=== PATIENT | female | born 1950 | race Two or more races ===

== ENCOUNTER 2020-06-25 10:29 | Outpatient (REF) | payer MEDICARE, OTHER, SELFPAY | END 2020-06-25 10:30 | disposition home or self-care (01) | LOC: HO.HMGCLDS 10:29 | PROVIDERS: Visit Provider Internal Medicine | DX: Z20.828 Contact with and (suspected) exposure to other viral communicable diseases (principal) | CPT/HCPCS: C9803; U0003 ==

== ENCOUNTER → 2020-07-08 11:05 | Outpatient (BNVA) | payer MEDICARE, SELFPAY | PROVIDERS: PCP Internal Medicine; Referring Provider Internal Medicine; Visit Provider Nurse Practitioner | DX: K21.9 Gastro-esophageal reflux disease without esophagitis (principal); K59.00 Constipation, unspecified; Z79.899 Other long term (current) drug therapy | CPT/HCPCS: Q3014 ==

== ENCOUNTER → 2020-07-23 13:17 | Outpatient (BNV) | payer MEDICARE, OTHER, SELFPAY, MEDICAID | PROVIDERS: Visit Provider Internal Medicine | DX: M81.0 Age-related osteoporosis without current pathological fracture (principal); Z85.3 Personal history of malignant neoplasm of breast; Z79.811 Long term (current) use of aromatase inhibitors; Z17.0 Estrogen receptor positive status [ER+] | CPT/HCPCS: 99213; 99214; G2211 ==

== ENCOUNTER 2020-07-25 07:39 | Outpatient (REF) | payer MEDICARE, OTHER, SELFPAY ==
--- NOTE | 2020-07-25 07:45 | MM_ITS ---
EXAMINATION: MM SCREENING DIGITAL BREAST TOMOSYNTHESIS, BILATERAL CLINICAL INFORMATION: Screening. Asymptomatic. COMPARISON: Mammography: July 06, 2019 and studies dating back to May 21, 2014 TECHNIQUE: Digital breast tomosynthesis is performed in both the craniocaudal and mediolateral oblique views along with computer-aided detection (CAD). Synthesized 2D images are generated from the tomosynthesis. Left exaggerated craniocaudal view also performed. FINDINGS: There are scattered areas of fibroglandular density (ACR BI-RADS breast composition Category b). There is architectural distortion from previous lumpectomy in the left breast superiorly. No new abnormal dominant mass or suspicious grouping of microcalcifications. MM/MM tomosynthesis screening BI IMPRESSION: There are no significant changes from prior study. ASSESSMENT: BI-RADS 2: Benign RECOMMENDATION: Routine annual mammography screening. This patient's information was entered into a reminder system with a target due date for their next mammogram.
== END 2020-07-25 07:40 | disposition home or self-care (01) ==
LOC: HO.MAMMO 07:39
PROVIDERS: PCP Internal Medicine; Visit Provider Surgery
DX: Z12.31 Encounter for screening mammogram for malignant neoplasm of breast (principal)
CPT/HCPCS: 77063; 77067

== ENCOUNTER → 2020-09-17 13:15 | Outpatient (BNVA) | payer MEDICARE, SELFPAY | PROVIDERS: PCP Internal Medicine; Visit Provider Nurse Practitioner | DX: Z76.89 Persons encountering health services in other specified circumstances (principal) | CPT/HCPCS: Q3014 ==

== ENCOUNTER → 2020-10-03 08:28 | Outpatient (BNVA) | payer MEDICARE, SELFPAY | PROVIDERS: PCP Internal Medicine; Visit Provider Nurse Practitioner | DX: K59.04 Chronic idiopathic constipation (principal) | CPT/HCPCS: Q3014 ==

== ENCOUNTER → 2020-10-22 11:36 | Outpatient (BNVA) | payer MEDICARE, SELFPAY | PROVIDERS: PCP Internal Medicine; Visit Provider Nurse Practitioner | DX: Z13.89 Encounter for screening for other disorder (principal) | CPT/HCPCS: Q3014 ==

== ENCOUNTER → 2020-11-07 14:42 | Outpatient (BNVA) | payer MEDICARE, MEDICAID, SELFPAY | PROVIDERS: PCP Internal Medicine; Visit Provider Surgery | DX: C50.912 Malignant neoplasm of unspecified site of left female breast (principal) | CPT/HCPCS: 99212 ==

== ENCOUNTER → 2021-01-06 10:57 | Outpatient (BNVA) | payer MEDICARE, SELFPAY | PROVIDERS: Visit Provider Nurse Practitioner | DX: Z13.89 Encounter for screening for other disorder (principal) | CPT/HCPCS: Q3014 ==

== ENCOUNTER 2021-02-13 08:03 | Outpatient (REF) | payer MEDICARE, MEDICAID, SELFPAY ==
--- NOTE | ~2021-02-13 | MM_ITS ---
EXAMINATION: BONE DENSITOMETRY CLINICAL INDICATION: Osteopenia. On letrozole. COMPARISON: Previous BD dated 05/06/2017 and baseline BD dated 03/10/2011. TECHNIQUE: Using a [employer] DXA System (software version: 13.1) manufactured by [employer], dual-energy x-ray absorptiometry was performed of the lumbar spine and left hip. The images are of good technical quality. Summary results are attached. FINDINGS: AP SPINE L1-L4: Current: BMD 1.081 g/cm2, Z-score 0.8, T-score -0.8, normal, 15.4% increase from previous, 13.8% increase from baseline (<5% change is not significant). Prior: BMD 0.937 g/cm2. Baseline: BMD 0.950 g/cm2. LEFT FEMUR, NECK: Current: BMD 0.639 g/cm2, Z-score -1.2, T-score -2.9, osteoporosis. Prior: BMD 0.729 g/cm2. Baseline: BMD 0.835 g/cm2. LEFT FEMUR, TOTAL: Current: BMD 0.721 g/cm2, Z-score -0.9, T-score -2.3, osteopenia, 10.2% decrease from previous, 17.6% decrease from baseline (<5% change is not significant). Prior: BMD 0.803 g/cm2. Baseline: BMD 0.875 g/cm2. IDENTIFIED RISK FACTORS: Early menopause, hysterectomy, low calcium intake, secondary osteoporosis, Thiazide. HISTORY OF FRACTURE: None listed. MEDICATIONS: Calcium, vitamin D. MM/XR DEXA axial skeleton IMPRESSION: 1. DIAGNOSIS: Osteoporosis based on the lowest T-score value of -2.9 in the femoral neck applying World Health Organization criteria. 2. 10-YEAR FRACTURE RISK PREDICTION, FRAX: According to the guidelines, FRAX calculation should only be performed on patients in the osteopenia bone density category. Therefore, FRAX was not performed on this patient. 3. Treatment Recommendations: NOF guidelines recommend consideration for treatment in postmenopausal women and men age 50 and older presenting with the following: -A hip or vertebral (clinical or morphometric) fracture. -T-score less than or equal to -2.5 at the femoral neck or spine after appropriate evaluation to exclude secondary causes. -Low bone mass at the hip or spine and a 10-year fracture probability by FRAX of greater than or equal to 3% for hip fracture or greater than or equal to 20% for major osteoporotic fracture based on the [place] adapted WHO algorithm. 4. Other Recommendations: All treatment decisions require clinical judgment and consideration of individual patient factors, including patient preferences, comorbidities, previous drug use, risk factors not captured in the FRAX model (e.g. frailty, falls, vitamin D deficiency, increased bone turnover, interval significant decline in bone density) and possible under or overestimation of fracture risk by FRAX. Additional medical evaluation for secondary cause of low bone mineral density may be appropriate. FUTURE SCAN RECOMMENDATION: People with diagnosed cases of osteoporosis or at high risk for fracture should have regular bone mineral density tests. For patients eligible for Medicare, routine testing is allowed once every 2 years. The testing frequency can be increased to one year for patients who have rapidly progressing disease, those who are receiving or discontinuing medical therapy to restore bone mass, or have additional risk factors.
== END 2021-02-13 08:04 | disposition home or self-care (01) ==
LOC: HO.MAMMO 08:03
PROVIDERS: Visit Provider Internal Medicine
DX: Z13.820 Encounter for screening for osteoporosis (principal); M81.0 Age-related osteoporosis without current pathological fracture; M85.89 Other specified disorders of bone density and structure, multiple sites; Z78.0 Asymptomatic menopausal state; Z79.899 Other long term (current) drug therapy
CPT/HCPCS: 77080

== ENCOUNTER → 2021-04-24 11:26 | Outpatient (BNVA) | payer MEDICARE, MEDICAID, SELFPAY | PROVIDERS: Referring Provider Nurse Practitioner; Visit Provider Nurse Practitioner | DX: K59.04 Chronic idiopathic constipation (principal); K21.9 Gastro-esophageal reflux disease without esophagitis; R14.0 Abdominal distension (gaseous); Z80.0 Family history of malignant neoplasm of digestive organs | CPT/HCPCS: 99212 ==

== ENCOUNTER → 2021-07-14 14:12 | Outpatient (BNVA) | payer MEDICARE, OTHER, SELFPAY | PROVIDERS: Visit Provider Nurse Practitioner | DX: K59.04 Chronic idiopathic constipation (principal); K21.9 Gastro-esophageal reflux disease without esophagitis; R14.0 Abdominal distension (gaseous) | CPT/HCPCS: 99212 ==

== ENCOUNTER 2021-09-01 18:14 | Emergency (ER) | payer MEDICARE, OTHER, SELFPAY ==
--- NOTE | ~2021-09-01 | CT_ITS ---
EXAMINATION: CT HEAD WITHOUT CONTRAST CLINICAL INFORMATION: Fall, hit head. COMPARISON: None TECHNIQUE: Contiguous axial imaging was performed from the skull base to vertex without intravenous administration of contrast. This CT examination was performed using dose optimization techniques as appropriate, variously including the following: *Automated exposure control *Adjustment of mA and/or kV according to patient size (this includes techniques or standardized protocols for targeted exams where dose is matched to indication/reason for exam; i.e. extremities or head) *Use of iterative reconstruction technique DLP: 685 mGy-cm FINDINGS: There is no evidence of acute intracranial hemorrhage or territorial infarction. No abnormal mass effect or midline shift is seen. Kohler to white matter differentiation is well preserved. No extra-axial fluid collections are identified. The ventricles are normal in size. There is no abnormal attenuation within the brain parenchyma. The osseous structures and soft tissues are normal. The mastoid air cells and visualized portions of the paranasal sinuses are well aerated. CT/CT head/brain wo con IMPRESSION: No acute intracranial process seen.
[2021-09-01 18:24] VITALS: BP 176/83; PULSE 75; RESP 18; TEMP 36.9; O2SAT 96; BMI 27.9
--- NOTE | 2021-09-01 20:18 | ED_ITS ---
HPI - Fall General Chief Complaint: Fall Stated Complaint: fell bump on the back of head Time Seen by Provider: 09/01/21 19:55 Source: patient Mode of arrival: ambulatory Limitations: no limitations History of Present Illness HPI Narrative: 71-year-old female here with reports of headache after a trip and fall. Patient tells me that she was sitting in the chair talking on the phone and when she stood up she tripped causing her to hit the right side of her head on the wall. There was no loss of consciousness. She reports a mild headache since the fall which occurred at 16:00. No vision changes, nausea or vomiting. She is not on any anticoagulation. She is ambulatory with no difficulty Related Data Home Medications Medication Instructions Recorded Confirmed atenolol 25 mg tablet 1 tab PO DAILY 07/23/20 08/12/21 hydrochlorothiazide 12.5 mg tablet 1 tab PO DAILY 07/23/20 08/12/21 cyanocobalamin (vitamin B-12) 250 250 mcg PO DAILY 10/03/20 08/12/21 mcg tablet Previous Rx's Medication Instructions Recorded docusate sodium 100 mg capsule 100 mg PO BID #60 cap 08/22/20 pantoprazole 40 mg tablet,delayed 40 mg PO DAILY 90 Days #90 tab 07/14/21 release Allergies Allergy/AdvReac Type Severity Reaction Status Date / Time iopamidol [From Isovue-M] Allergy Mild DEVELOPED Verified 08/12/21 16:11 THIGHTNESS IN THROAT Iodinated Contrast Media AdvReac Intermediate VOMITING Verified 08/12/21 16:11 [CONTRAST, IV] Review of Systems Review of Systems: Yes all other systems are reviewed and are negative Constitutional: Constitutional: Reports no additional constitutional complaints, Denies body ache(s), Denies chills, Denies fever(s), Reports headache(s) and Denies weakness Eyes: Eyes: Reports no additional eye complaints and Denies change in vision ENT: Reports system reviewed and no additional complaints, except as do cumented, Denies dizziness, Reports headache(s), Denies nasal congestion, Denies nasal discharge and Denies neck pain Cardiovascular: Cardiovascular: Reports no additional cardiovascular complaints, Denies chest pain, Denies leg edema and Denies dyspnea Respiratory: Respiratory: Reports no additional respiratory complaints, Denies cough and Denies dyspnea Gastrointestinal: Gastrointestinal: Reports no additional gastrointestinal complaints, Denies abdominal pain, Denies diarrhea, Denies nausea and Denies vomiting Genitourinary: Genitourinary: Reports no additional female genitourinary complaints and Denies urinary incontinence Musculoskeletal: Musculoskeletal: Reports no additional musculoskeletal complaints, Denies back pain, Denies arthralgias, Denies joint swelling, Denies neck pain, Denies numbness and Denies tingling Integumentary/Breasts: Skin/Breast: Reports system reviewed and no additional complaints, except as docu and Denies rash Neurologic: Reports system reviewed and no additional complaints, except as documented, Denies Abnormal speech present, Denies dizziness, Reports headache(s), Denies numbness, Denies tingling and Denies weakness PMFSH Past Medical History Attestation statement: The following information was validated with the patient. 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 Sister No problems noted. Social History Social History Household Members: Children Alcohol intake: former Patient Tobacco Use Status: Never used Tobacco Advance Directives: No Current occupational status: retired and disabled Physical Exam Vital Signs: Vital Signs: Last Vital Signs Temp 98.4 F 09/01/21 18:24 Pulse 75 09/01/21 20:40 Resp 16 09/01/21 20:40 BP 127/82 09/01/21 20:40 Pulse Ox 96 09/01/21 20:40 BMI result Body Mass Index 27.9 Const: General: cooperative, healthy appearing, comfortable and no acute distress Orientation/consciousness: patient oriented x3 Limitations: no limitations HENMT: Head: Yes normal to inspection Ears: hearing grossly normal bilaterally and TM's normal bilaterally General nose exam: Normal external nose present Face and sinus: Yes normal facial exam Mouth: Normal oral and palatal mucosa present Throat: Yes posterior oropharynx normal, Yes tonsils normal and Yes uvula midline Eyes: General: appearance normal, both eyes and all related structures Pupils: Equal, round and reactive pupils present Neck: Neck: Yes normal visual inspection, Yes full ROM, Yes no lymphadenopathy and Yes no meningeal signs Chest: Chest palpation & inspection: normal inspection of the chest Resp: Effort & Inspection: normal respiratory effort Auscultation: clear to auscultation bilaterally Cardio: Rate: regular rate Rhythm: regular rhythm Peripheral pulses: Peripheral pulses 2+ throughout GI: Inspection: Yes normal to inspection Palpation (GI): Soft to palpation and nontender Auscultation: normal bowel sounds Back/Spine/Pelvis: Thoracic/Lumbar Spine: thoracic and lumbar spine normal to inspection Skin: General skin exam: no rashes or lesions noted Neuro: General: patient oriented x3, no meningeal signs, no focal motor deficits and normal sensation to monofilament Cranial nerves: Yes CN's II-XII intact bilaterally, Yes Equal, round and reactive pupils present, Yes Bilaterally intact EOM present, Yes Nystagmus not present, Yes Normal facial strength present and Yes Midline tongue present Cognition (Neuro): normal cognition Speech: No Abnormal speech present Gait exam (Neuro): Normal gait present Motor exam (neuro): 5/5 motor strength present throughout Sensory Exam: Normal double simultaneous stimulation for sensation Extrem: General: Yes normal to inspection Course Course Course Narrative: 71-year-old female here with headache after a trip and fall with head strike. Normal neurological exam. Will check CT head 2200-Ct head shows no intracranial process. Normal neuro exam. Patient is ambulatory with no difficulty. Discussed findings with her. Reviewed worrisome signs and symptoms when to return to the emergency. Comfortable discharge home. MDM - Fall Medical Records Attestation: I reviewed the patient's medical records. Lab Data Attestation: I reviewed the patient's lab results. Imaging Data CT scan - head: Attestation: I personally reviewed and interpreted this imaging study as follows: Radiologist's impression: FINDINGS: There is no evidence of acute intracranial hemorrhage or territorial infarction. No abnormal mass effect or midline shift is seen. Kohler to white matter differentiation is well preserved. No extra-axial fluid collections are identified. The ventricles are normal in size. There is no abnormal attenuation within the brain parenchyma. The osseous structures and soft tissues are normal. The mastoid air cells and visualized portions of the paranasal sinuses are well aerated. ? CT/CT head/brain wo con IMPRESSION: No acute intracranial process seen. Discharge Plan Discharge Clinical Impression: Contusion of head Patient Disposition: Home, Self-Care Instructions: Contusion in Adults (ED) Additional Instructions: CT scan was normal Ice to the area Tylenol for pain as needed Return for severe headache, vomiting or vision changes Prescriptions: No Action docusate sodium 100 mg capsule 100 mg PO BID Qty: 60 RF: 6 atenolol 25 mg tablet 1 tab PO DAILY RF: 0 hydrochlorothiazide 12.5 mg tablet 1 tab PO DAILY RF: 0 pantoprazole 40 mg tablet,delayed release (DR/EC) 40 mg PO DAILY 90 Days Qty: 90 RF: 1 cyanocobalamin (vitamin B-12) 250 mcg tablet 250 mcg PO DAILY RF: 0 Referrals: Lovely Jimenez [Primary Care Provider] - 2 days
[2021-09-01 20:40] VITALS: BP 127/82; PULSE 75; RESP 16; O2SAT 96
== END 2021-09-01 22:29 | disposition home or self-care (01) ==
PROVIDERS: Emergency Provider Emergency Medicine; PCP Nurse Practitioner
DX: S00.93XA Contusion of unspecified part of head, initial encounter (principal); W01.198A Fall on same level from slipping, tripping and stumbling with subsequent striking against other object, initial encounter; Y93.89 Activity, other specified; Y92.039 Unspecified place in apartment as the place of occurrence of the external cause; Y99.9 Unspecified external cause status
CPT/HCPCS: 70450; 99283; 99284

== ENCOUNTER 2021-10-23 10:56 | Outpatient (REF) | payer MEDICARE, MEDICAID, SELFPAY ==
--- NOTE | ~2021-10-23 | MM_ITS ---
EXAMINATION: MM SCREENING DIGITAL BREAST TOMOSYNTHESIS, BILATERAL CLINICAL INFORMATION: Screening. Asymptomatic. Lumpectomy for left breast cancer, 2015. COMPARISON: Mammography: 07/25/2020, 07/06/2019, 07/04/2018 TECHNIQUE: Digital breast tomosynthesis is performed in both the craniocaudal and mediolateral oblique views along with computer-aided detection (CAD). Synthesized 2D images are generated from the tomosynthesis. Additional right MLO view is provided. FINDINGS: There are scattered areas of fibroglandular density (ACR BI-RADS breast composition Category b). There are post therapy changes again noted left breast similar to prior studies with mild reduced breast size table scarring central mid 12:00 position. Biopsy clip marker present left axilla. Neither breast shows interval mass or architectural abnormality or abnormal calcifications. No significant changes. MM/MM tomosynthesis screening BI IMPRESSION: No mammographic evidence of malignancy. Post therapy changes left breast, stable. ASSESSMENT: BI-RADS 2: Benign RECOMMENDATION: Routine annual mammography screening. This patient's information was entered into a reminder system with a target due date for their next mammogram.
== END 2021-10-23 10:57 | disposition home or self-care (01) ==
LOC: HO.MAMMO 10:56
PROVIDERS: PCP Nurse Practitioner; Visit Provider Nurse Practitioner
DX: Z12.31 Encounter for screening mammogram for malignant neoplasm of breast (principal)
CPT/HCPCS: 77063; 77067

== ENCOUNTER → 2021-11-04 14:54 | Outpatient (BNVA) | payer MEDICARE, OTHER, SELFPAY | PROVIDERS: PCP Nurse Practitioner; Referring Provider Nurse Practitioner; Visit Provider Surgery | DX: Z85.3 Personal history of malignant neoplasm of breast (principal) | CPT/HCPCS: 99212 ==

== ENCOUNTER → 2022-01-13 14:07 | Outpatient (BNVA) | payer OTHER, SELFPAY | PROVIDERS: PCP Nurse Practitioner; Referring Provider Nurse Practitioner; Visit Provider Nurse Practitioner | DX: K59.04 Chronic idiopathic constipation (principal); K21.9 Gastro-esophageal reflux disease without esophagitis; R14.0 Abdominal distension (gaseous) | CPT/HCPCS: 99212 ==

== ENCOUNTER 2022-01-14 09:00 | Outpatient (REF) | payer OTHER, SELFPAY ==
--- NOTE | 2022-01-14 11:02 | MHC.AU.ANR ---
Adult Audiological Evaluation Date of Visit: 01/14/22 Reason for Appointment: Patient reports that her hearing has been gradually getting worse for at least the last 5 years. She experiences hearing difficulty in most daily situations. 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 History: No Medical History: Medical History: History of breast cancer, hypertension Otoscopy: Right Ear: Unremarkable Left Ear: Unremarkable Tympanometry: Tympanometry performed due to: To assess integrity of the middle ear system Right Ear: Normal Middle Ear System (Type A) Left Ear: Normal Middle Ear System (Type A) Hearing Evaluation: Transducer(s) Used: Insert Earphones Method: Conventional Audiometry Stimuli Used: Pure Tones Right Ear: Description of Hearing: Moderate to moderately-severe sensorineural hearing loss Left Ear: Description of Hearing: Moderate to moderately-severe sensorineural hearing loss Speech Recognition Threshold (SRT): Method Used: Monitored Live Voice Stimuli Used: Spondee Words Right Ear: 55 dBHL Left Ear: 55 dBHL Word Discrimination: Method: Recorded Lists Word Lists Used: W-22 Right Ear: 68% at 80 dBHL Left Ear: 80% at 80 dBHL Most Comfortable Level (MCL): Right Ear: 80 dBHL Left Ear: 80 dBHL Recommendations: Audiological re-evaluation in one year. Patient is a candidate for hearing aids. She plans to contact her insurance to inquire about hearing aid benefits. Diagnosis: Primary Diagnosis: H90.3 Bilateral Sensorineural Hearing Loss Signature: Provider: Tish Ferreira, [facility]
== END 2022-01-14 09:01 | disposition home or self-care (01) ==
LOC: HO.SH 09:00
PROVIDERS: PCP Nurse Practitioner; Visit Provider Nurse Practitioner
DX: H90.3 Sensorineural hearing loss, bilateral (principal)
CPT/HCPCS: 92557; 92567

== ENCOUNTER → 2022-07-07 13:37 | Outpatient (BNVA) | payer OTHER, SELFPAY | PROVIDERS: PCP Nurse Practitioner; Referring Provider Nurse Practitioner; Visit Provider Nurse Practitioner | DX: K21.9 Gastro-esophageal reflux disease without esophagitis (principal); K59.04 Chronic idiopathic constipation; Z79.899 Other long term (current) drug therapy | CPT/HCPCS: 99212 ==

== ENCOUNTER 2022-10-26 10:40 | Outpatient (REF) | payer MEDICARE, SELFPAY ==
--- NOTE | ~2022-10-26 | MM_ITS ---
EXAMINATION: MM SCREENING DIGITAL BREAST TOMOSYNTHESIS, BILATERAL CLINICAL INFORMATION: Screening. Asymptomatic. Status post left breast lumpectomy. COMPARISON: Mammography: October 23, 2021 and studies dating back to June 30, 2016 TECHNIQUE: Digital breast tomosynthesis is performed in both the craniocaudal and mediolateral oblique views along with computer-aided detection (CAD). Synthesized 2D images are generated from the tomosynthesis. FINDINGS: There are scattered areas of fibroglandular density (ACR BI-RADS breast composition Category b). There are no new significant masses, abnormal calcifications, or other abnormalities. Left breast postsurgical change again seen. MM/MM tomosynthesis screening BI IMPRESSION: No significant changes ASSESSMENT: BI-RADS 2: Benign RECOMMENDATION: Routine annual mammography screening. This patient's information was entered into a reminder system with a target due date for their next mammogram.
== END 2022-10-26 10:41 | disposition home or self-care (01) ==
LOC: HO.MAMMO 10:40
PROVIDERS: PCP Registered Nurse; Visit Provider Nurse Practitioner
DX: Z12.31 Encounter for screening mammogram for malignant neoplasm of breast (principal)
CPT/HCPCS: 77063; 77067

== ENCOUNTER → 2022-11-03 10:52 | Outpatient (BNVA) | payer MEDICARE, SELFPAY | PROVIDERS: PCP Registered Nurse; Visit Provider Surgery | DX: C50.912 Malignant neoplasm of unspecified site of left female breast (principal) | CPT/HCPCS: 99212 ==

== ENCOUNTER 2022-11-16 14:32 | Outpatient (REF) | payer MEDICARE, SELFPAY ==
[2022-11-16 16:54] LABS: Urine Cytology See Pathology rpt
== END 2022-11-16 14:33 | disposition home or self-care (01) ==
LOC: HO.LAB 14:32
PROVIDERS: PCP Registered Nurse; Visit Provider Urology
DX: R31.29 Other microscopic hematuria (principal)
CPT/HCPCS: 88112; 99202

== ENCOUNTER 2022-11-25 11:06 | Outpatient (REF) | payer MEDICARE, SELFPAY ==
--- NOTE | ~2022-11-25 | US_ITS ---
EXAMINATION: US RETROPERITONEAL LIMITED (RENAL ONLY) CLINICAL INFORMATION: Other microscopic hematuria. COMPARISON: CT abdomen and pelvis 08/23/2015. Renal ultrasound 02/27/2011. TECHNIQUE: Real-time imaging of the kidneys. FINDINGS: RIGHT KIDNEY: 13.3 x 4.3 x 5.9 cm (SAG x AP x TRV). The kidney is normal in size, contour, and echogenicity. Renal cortical thickness is normal. 6 x 6 x 8 mm cyst in the midpole. No imaging follow-up recommended. No renal calculi or hydronephrosis. LEFT KIDNEY: 11.7 x 5.5 x 4.7 cm (SAG x AP x TRV). The kidney is normal in size, contour, and echogenicity. Renal cortical thickness is normal. 2 cysts in the upper pole measuring 1.5 x 1.5 x 1.7 cm and 1 x 0.8 x 1 cm. No imaging follow-up recommended. No renal calculi or hydronephrosis. US/US renal BI IMPRESSION: No cause of hematuria seen.
== END 2022-11-25 11:07 | disposition home or self-care (01) ==
LOC: HO.US 11:06
PROVIDERS: PCP Registered Nurse; Visit Provider Urology
DX: R31.29 Other microscopic hematuria (principal)
CPT/HCPCS: 76775

== ENCOUNTER → 2022-12-31 11:08 | Outpatient (BNVA) | payer MEDICARE, SELFPAY | PROVIDERS: PCP Registered Nurse; Visit Provider Urology | DX: N30.91 Cystitis, unspecified with hematuria (principal) | CPT/HCPCS: 52000 ==

== ENCOUNTER 2023-02-18 09:34 | Outpatient (REF) | payer MEDICARE, SELFPAY ==
--- NOTE | ~2023-02-18 | MM_ITS ---
EXAMINATION: BONE DENSITOMETRY CLINICAL INDICATION: Osteoporosis. COMPARISON: Previous BD dated 02/13/2021 and baseline BD dated 03/10/2011. TECHNIQUE: Using a [employer] DXA System (software version: 13.1) manufactured by [employer], dual-energy x-ray absorptiometry was performed of the lumbar spine and left hip. The images are of good technical quality. Summary results are attached. FINDINGS: LEFT FEMUR, NECK: Current: BMD 0.710 g/cm2, Z-score -0.6, T-score -2.4, osteopenia. Prior: BMD 0.639 g/cm2. Baseline: BMD 0.835 g/cm2. LEFT FEMUR, TOTAL: Current: BMD 0.794 g/cm2, Z-score -0.2, T-score -1.7, osteopenia, 10.1% increase from previous, 9.3% decrease from baseline (<5% change is not significant). Prior: BMD 0.721 g/cm2. Baseline: BMD 0.875 g/cm2. AP SPINE L1-L4: Current: BMD 1.021 g/cm2, Z-score 0.3, T-score -1.3, osteopenia, 5.6% decrease from previous, 7.5% increase from baseline (<5% change is not significant). Prior: BMD 1.081 g/cm2. Baseline: BMD 0.950 g/cm2. IDENTIFIED RISK FACTORS: Early menopause, height loss, hysterectomy, osteoporosis, secondary osteoporosis. HISTORY OF FRACTURE: None listed. MEDICATIONS: Calcium, vitamin D, Prolia, aromatase inhibitors. MM/XR DEXA axial skeleton IMPRESSION: 1. DIAGNOSIS: Osteopenia based on the lowest T-score value of -2.4 in the femoral neck applying World Health Organization criteria. 2. 10-YEAR FRACTURE RISK PREDICTION, FRAX: Not performed in this patient on estrogen or bone building treatments. 3. Treatment Recommendations: NOF guidelines recommend consideration for treatment in postmenopausal women and men age 50 and older presenting with the following: -A hip or vertebral (clinical or morphometric) fracture. -T-score less than or equal to -2.5 at the femoral neck or spine after appropriate evaluation to exclude secondary causes. -Low bone mass at the hip or spine and a 10-year fracture probability by FRAX of greater than or equal to 3% for hip fracture or greater than or equal to 20% for major osteoporotic fracture based on the [place] adapted WHO algorithm. 4. Other Recommendations: All treatment decisions require clinical judgment and consideration of individual patient factors, including patient preferences, comorbidities, previous drug use, risk factors not captured in the FRAX model (e.g. frailty, falls, vitamin D deficiency, increased bone turnover, interval significant decline in bone density) and possible under or overestimation of fracture risk by FRAX. Additional medical evaluation for secondary cause of low bone mineral density may be appropriate. FUTURE SCAN RECOMMENDATION: People with diagnosed cases of osteoporosis or at high risk for fracture should have regular bone mineral density tests. For patients eligible for Medicare, routine testing is allowed once every 2 years. The testing frequency can be increased to one year for patients who have rapidly progressing disease, those who are receiving or discontinuing medical therapy to restore bone mass, or have additional risk factors.
== END 2023-02-18 09:35 | disposition home or self-care (01) ==
LOC: HO.MAMMO 09:34
PROVIDERS: PCP Registered Nurse; Visit Provider Internal Medicine
DX: Z13.820 Encounter for screening for osteoporosis (principal); Z78.0 Asymptomatic menopausal state
CPT/HCPCS: 77080

== ENCOUNTER 2023-07-02 11:27 | Outpatient (AMB) | payer MEDICARE, SELFPAY ==
--- NOTE | 2023-07-02 11:31 | MHC.OFFVIS ---
Intake Intake Visit Reasons: 6m follow up Claims Coordinator Required: No Accompanied by: Self / Same As Patient Allergies iopamidol [From Isovue-M] Allergy (Mild, Verified 07/02/23 12:06) DEVELOPED THIGHTNESS IN THROAT Iodinated Contrast Media [CONTRAST, IV] Adverse Reaction (Intermediate, Verified 07/02/23 12:06) VOMITING HPI HPI Comments History of Present Illness Details Monica is a 73-year-old female who presents today to the office for a follow-up. 07/02/2023-- The patient is a former cigarette smoker 40 years ago, but states only smoked a few cigarettes a day for about a year or two. She presents today for follow-up of microscopic hematuria. She denies any irritative voiding symptoms. She admits that when she is not drinking adequate amount of water, her urine appears dark. She is unable to provide a urine specimen today. I reviewed prior evaluation; Kidney US done in 11/2022 revealed that there was bilateral simple ---12/31/22-- Cystoscopy findings-- mild trabeculations, mild inflammatory changes at the trigone. No suspicious bladder Review of chart: Renal US done on 11/25/22 which noted findings of bilateral simple cyst. Urine cytology done on 11/16/22 which was negative for malignancy. 12/31/22-- Office cystoscopy: Cystoscopy findings-- mild trabeculations, mild inflammatory changes at the trigone. No suspicious bladder. 07/02/2023: Plan: Will recheck renal US in one year. Follow-up in one year. If her symptoms are stable at that time, we will follow-up on PRN basis. 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 Sister No problems noted. Social History Household Members: Children Housing: House Are you a primary overnight caregiver to a significant other at home: No Do you presently have visiting nurse or other home services: No Alcohol intake: former Patient Tobacco Use Status: Never used Tobacco service: No Current occupational status: retired and disabled Review of Systems Const All systems reviewed & are unremarkable except as noted in HPI and below Reports no additional complaints Eyes Reports no additional complaints ENT Reports no additional complaints Card Denies dyspnea Resp Denies cough and Denies dyspnea GI Reports no additional complaints Reports no additional complaints Musc Reports no additional complaints Skin/Breast Denies rash and Denies unusual bruising Neuro Reports no additional complaints Psych Reports no additional complaints Endo Reports no additional complaints Bobby/Lymph Reports no additional complaints Aller/Immun Reports no additional complaints Assessment & Plan Assessment & Plan (1) Cystitis: Code(s): N30.90 - Cystitis, unspecified without hematuria (2) Microscopic hematuria: Code(s): R31.29 - Other microscopic hematuria (3) Simple renal cyst: Code(s): N28.1 - Cyst of kidney, acquired Plan Will recheck renal US in one year. Follow-up in one year. If her symptoms are stable at that time, we will follow-up on PRN basis Orders: Orders US renal BI 10 Months N30.90 - Cystitis, unspecified without hematuria, R31.29 - Other microscopic hematuria Patient Instructions: The patient had an opportunity to ask questions regarding treatment plan. All questions were answered. Imaging, Laboratory studies and physical exam results were discussed and reviewed in detail. No major barriers to understanding were identified. The patient expressed understanding and agreement with the above treatment plan. The patient is aware they should contact our office by phone for worsening of their current condition or the appearance of new symptoms. Compliance is encouraged with any medications and followup testing that is ordered. It is a privilege to be allowed the opportunity to participate in the urologic care of your patient. If you have any questions or concerns regarding treatment for the above conditions please do not hesitate to contact me. The office telephone contact is [phone]. This note is constructed in part using voice recognition software. While every effort has been made to ensure accuracy tobacco packing machine operator errors may have been included. Yours sincerely, Ritchie Isidro MD Coding Level of Care Code Est Pt Level 3 (87859) Diagnoses Cystitis N30.90 Microscopic hematuria R31.29 Simple renal cyst N28.1
== END 2023-07-02 12:22 | disposition home or self-care (01) ==
PROVIDERS: Visit Provider Urology
DX: N30.90 Cystitis, unspecified without hematuria (principal); R31.29 Other microscopic hematuria; N28.1 Cyst of kidney, acquired
CPT/HCPCS: 99213

== ENCOUNTER → 2023-07-02 11:27 | Outpatient (BNVA) | payer MEDICARE, SELFPAY | PROVIDERS: Visit Provider Urology | DX: N30.90 Cystitis, unspecified without hematuria (principal); R31.29 Other microscopic hematuria; N28.1 Cyst of kidney, acquired | CPT/HCPCS: 99212 ==

== ENCOUNTER 2023-09-01 11:07 | Emergency (ER) | payer MEDICARE, SELFPAY ==
--- NOTE | ~2023-09-01 | XR_ITS ---
EXAMINATION: XR HIP, LEFT CLINICAL INFORMATION: Fall. COMPARISON: CT abdomen/pelvis dated 08/23/2015. TECHNIQUE: AP view the pelvis as well as AP and frog-leg lateral views of the left hip. FINDINGS: No acute fracture or dislocation. Mild bilateral hip joint space are small marginal osteophytes. Moderate osteoarthritis at the symphysis pubis with more mild osteoarthritis at the right and left sacroiliac joints. No concerning lytic or blastic osseous lesion. No evidence of avascular necrosis. No abnormal soft tissue calcification. XR/XR hip LT w PEL1V IMPRESSION: 1. No acute fracture or dislocation. 2. Mild bilateral hip osteoarthritis. 3. 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
--- NOTE | ~2023-09-01 | CT_ITS ---
EXAMINATION: CT brain and CT cervical spine without contrast. CLINICAL INDICATION: Trauma neck pain and head pain. COMPARISON: None. TECHNIQUE: 5 mm thin axial and reformatted 2 mm thin sagittal and coronal images of brain were obtained. Subsequently axial 3 mm thin and reformatted 2 mm thin sagittal and coronal images of cervical spine were obtained. DLP [id number]. This CT examination was performed using dose optimization technique as appropriate, variously including the following: Automated exposure control Adjustment of MA and/or KV according to patient size(this includes techniques or standardized protocols for targeted exams where dose is matched to indication/reason for exam; extremities or head. Use of iterative reconstruction techniques. FINDINGS: Brain: There is no acute intra-axial, extra-axial bleed, masses or midline shift. There is no acute infarction evolution. There is no edema. The tristan to white matter differentiation is maintained normal. The lateral ventricles are symmetrical in size and configuration normal for patient's age. Bone windows reveal no calvarial abnormality. Bilateral paranasal sinuses and mastoid sinuses are normal. There is no scalp soft tissue abnormality seen. Cervical spine: There is mild straightening of cervical lordosis. The vertebral heights are normal. There is grade 1 anterolisthesis C7 over T1.. Rest of the vertebral alignment is normal. There is mild loss of C5-C6 and C6 S7 disc heights with mild ventral spondylosis. There is no acute fracture, dislocation or subluxation seen. Moderate right C2-C3, left C3-C4 and C5-C6 and significant right C7-T1 hypertrophic facet joint disease seen. The prevertebral and paravertebral soft tissues are normal. The central tracheal airway is widely patent. The lung apices are clear. CT/CT cervical spine wo IV con IMPRESSION: 1. No acute intracranial process seen. 2. There is no acute fracture, dislocation or subluxation seen. There is grade 1 anterolisthesis C7 over T1. There are degenerative disc changes C5-C6 and C6-C7 disc levels with ventral spondylosis and facet joint arthropathy as described above.
[2023-09-01 11:18] VITALS: BP 155/88; BP 163/83; PULSE 80; PULSE 86; RESP 20; TEMP 36.6; O2SAT 96; O2SAT 98; BMI 28.0
--- NOTE | 2023-09-01 11:26 | ECG_ITS ---
Test Reason : DIZZINESS Blood Pressure : / mmHG Vent. Rate : 080 BPM Atrial Rate : 080 BPM P-R Int : 116 ms QRS Dur : 070 ms QT Int : 370 ms P-R-T Axes : -13 003 003 degrees QTc Int : 426 ms Normal sinus rhythm Minimal voltage criteria for LVH, may be normal variant ( R in aVL ) Borderline ECG When compared with ECG of 05-MAY-2016 16:39, T wave inversion now evident in Inferior leads Referred By: Katie Burnett Electronically Signed By:CLARITA MAGAÑA
--- NOTE | 2023-09-01 11:27 | PC.NURSE ---
JYOTI AND DAUGHTER AT BEDSIDE STATES THAT DOWN 12 [address]. PT C/O POST NECK PAIN AND LATERAL L THIGH PAIN
[2023-09-01 11:31] VITALS: BP 158/79; PULSE 81; RESP 15
--- NOTE | 2023-09-01 11:46 | ED.FALL ---
HPI - Fall General Chief Complaint: Fall Stated Complaint: FALL DOWN STAIRS,NECK PAIN PER EMS Time Seen by Provider: 09/01/23 11:14 Source: patient and family Mode of arrival: EMS Limitations: no limitations History of Present Illness HPI Narrative: 73 yo female with PMH of GERD, constipation, breast cancer not on blood thinners. Family is getting ready for trip to [place] today and patient tripped going down the stairs. She tried to hold on and ended up somersaulting down 12 stairs. She landed on a wooden floor. She has some L hip and neck pain. She denies LOC. No other injuries noted. She is smiling and laughing. She has no rib pain, abdominal pain, chest pain, trouble breathing. She has no vomited and is acting like herself. Family was at home and she got up right away complaint: fall Onset (ago): minute(s) (just prior to arrival) Fall from: standing Fall witnessed: yes, by family Place fall occurred: home Loss of consciousness: none Prolonged down time: no Symptoms prior to fall: none Context: tripped/slipped Location of injury: neck and pelvis Severity: mild Quality: dull and aching Associated symptoms (after fall): other (told EMS she was initially dizzy after the fall but she states she is fine now. Has mild L hip pain) Related Data Home Medications Medication Instructions Recorded Confirmed atenolol 25 mg tablet 1 tab PO DAILY 07/23/20 02/19/23 hydrochlorothiazide 12.5 mg tablet 1 tab PO DAILY 07/23/20 02/19/23 cyanocobalamin (vitamin B-12) 250 250 mcg PO DAILY 10/03/20 02/19/23 mcg tablet Previous Rx's Medication Instructions Recorded docusate sodium 100 mg capsule 100 mg PO BID #60 caps 01/13/22 famotidine 40 mg tablet (Pepcid) 40 mg PO BEDTIME #60 tabs 07/07/22 lubiprostone 8 mcg capsule 8 mcg PO BID #60 caps 07/07/22 (Amitiza) nitrofurantoin 100 mg PO BID 3 days #6 caps 12/31/22 monohydrate/macrocrystals 100 mg capsule (Macrobid) pantoprazole 40 mg tablet,delayed 40 mg PO DAILY #90 tabs 07/22/23 release Allergies Allergy/AdvReac Type Severity Reaction Status Date / Time iopamidol [From Isovue-M] Allergy Mild DEVELOPED Verified 07/02/23 12:06 THIGHTNESS IN THROAT Iodinated Contrast Media AdvReac Intermediate VOMITING Verified 07/02/23 12:06 [CONTRAST, IV] Review of Systems Review of Systems: Constitutional : No Fever, No Chills ENT/Mouth : No Ear Pain, No Hoarseness, No sore throat Eyes: No Eye Pain, No Swelling, No Redness, No Foreign Body Cardiovascular : No Chest Pain, No SOB Respiratory : No Cough, No Dyspnea Gastrointestinal : No Nausea, No Vomiting, No Diarrhea, No abdominal Pain Genitourinary : No Dysuria, No Hematuria Musculoskeletal : positive joint pain, No Myalgias, No Joint Swelling, pos neck pain Skin : No Skin lacerations, No rash Neuro : No Weakness, No Numbness, No Loss of Consciousness, No Dizziness, No Headache Psych : No Anxiety/Panic, No Depression All other systems reviewed and are negative PMFSH Past Medical History Attestation statement: The following information was validated with the patient. 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 Sister No problems noted. Social History Social History Household Members: Children Housing: House Are you a primary direct care worker to a significant other at home: No Do you presently have visiting nurse or other home services: No Unable to assess alcohol history related to: Unknown Alcohol intake: former Patient Tobacco Use Status: Never used Tobacco Smoked in Last 30 Days: No Use of substances other than those prescribed or required for medical reasons: No Advance Directives: No Advance Directives Information Provided: Yes service: No Current occupational status: retired and disabled Physical Exam Vital Signs: Vital Signs: Last Vital Signs Temp 98.1 F 09/01/23 12:43 Pulse 83 09/01/23 12:43 Resp 16 09/01/23 12:43 BP 170/79 H 09/01/23 12:43 Pulse Ox 96 09/01/23 12:43 O2 Del Method Room Air 09/01/23 12:43 BMI result Body Mass Index 28.0 Appearance: Alert. Oriented X3. No acute distress. Eyes: Pupils equal, round and reactive to light. ENT: Pharynx normal. mild contusion to occiput Neck: some posterior midline ttp C5-C6 no step offs CVS: Normal heart rate and rhythm. Pulses normal. Chest wall: no ttp Respiratory: No respiratory distress. Breath sounds normal. Abdomen: Soft and non-tender. Skin: Skin warm and dry. Normal skin color. Normal skin turgor. Extremities: No lower extremity edema. No calf ttp Mild upper left hip ttp but normal ROM of both arms and legs Neuro: Oriented X 3. No motor deficit. No sensory deficit. Medical Decision Making Medical Decision Making MDM Narrative: 73 yo female with PMH of GERD, constipation, breast cancer not on blood thinners here with mechanical fall down 12 stairs but no LOC at baseline and no vomiting it sounds like she tried to hold on so she didn't fall down all 12 stairs and when she did she ended up somersaulting. She has no signs of injury to abdomen or chest, she has mild neck pain and L hip pain she is NV intact at this time given mechanism will obtain CT head/cspine, xrays of L hip. Differential Diagnosis Differential Diagnoses: The differential diagnosis associated with the presentation includes head injury, strain, trauma, fracture Admission/Observation Consideration of admission/observation: Escalation of care including admission/observation considered GCS 15 at baseline, with family negative imaging and CT scans Independent Interpretation I performed an independent interpretation of an: EKG, Plain X-Ray and CT Scan Interpretation: Rate: 80 Rhythm: NSR [place]: normal Normal P waves. Normal ROBBY. Normal QRS complex. ST T wave : no SUHA, inverted t waves V1, V2 and III qTC: 426 prior studies: no change from priors The study has been interpreted contemporaneously by me. . Radiology Impression Discussion of test interpretation with radiology: I have reviewed the radiologist's reading. Independent Historian Clinical information obtained from an independent historian. History obtained from or confirmed by: EMS and Other (family) External Record Review External record reviewed: Inpatient record Discharge Plan Discharge Clinical Impression: Contusion of hip Qualifiers: Encounter type: initial encounter Laterality: left Qualified Code(s): S70.02XA - Contusion of left hip, initial encounter Head injury Qualifiers: Encounter type: initial encounter Qualified Code(s): S09.90XA - Unspecified injury of head, initial encounter Neck strain Qualifiers: Encounter type: initial encounter Qualified Code(s): S16.1XXA - Strain of muscle, fascia and tendon at neck level, initial encounter Patient Disposition: Home, Self-Care Instructions: Cervical Strain (ED), Head Injury (ED), Hip Contusion (ED) Additional Instructions: xray and CT scans are normal return for vomiting, confusion, worsening pain or severe headaches. okay to take tylenol or motrin. avoid aspirin for 3 days. Prescriptions: No Action pantoprazole 40 mg tablet,delayed release (DR/EC) 40 mg PO DAILY Qty: 90 2RF atenolol 25 mg tablet 1 tab PO DAILY hydrochlorothiazide 12.5 mg tablet 1 tab PO DAILY cyanocobalamin (vitamin B-12) 250 mcg tablet 250 mcg PO DAILY docusate sodium 100 mg capsule 100 mg PO BID Qty: 60 6RF famotidine [Pepcid] 40 mg tablet 40 mg PO BEDTIME Qty: 60 6RF lubiprostone [Amitiza] 8 mcg capsule 8 mcg PO BID Qty: 60 3RF nitrofurantoin monohyd/m-cryst [Macrobid] 100 mg capsule 100 mg PO BID 3 Days Qty: 6 0RF Rx Instructions: must administer with a meal/food
[2023-09-01 12:43] VITALS: BP 170/79; PULSE 83; RESP 16; TEMP 36.7; O2SAT 96
== END 2023-09-01 13:31 | disposition home or self-care (01) ==
PROVIDERS: Emergency Provider Emergency Medicine; PCP Nurse Practitioner
DX: S09.90XA Unspecified injury of head, initial encounter (principal); S70.02XA Contusion of left hip, initial encounter; S16.1XXA Strain of muscle, fascia and tendon at neck level, initial encounter; W10.8XXA Fall (on) (from) other stairs and steps, initial encounter; Y93.89 Activity, other specified; Y92.038 Other place in apartment as the place of occurrence of the external cause; Y99.9 Unspecified external cause status
CPT/HCPCS: 70450; 72125; 73502; 93005; 99284

== ENCOUNTER 2023-10-26 12:21 | Outpatient (AMB) | payer MEDICARE, SELFPAY ==
--- NOTE | 2023-10-26 12:23 | MHC.OFFVIS ---
Intake Vital Signs 10/26/23 12:27 Height 5 ft 1 in Weight 147 lb 14.883 oz BMI 27.9 BP 180/82 H Blood Pressure Location Rt brachial Position Sitting Pulse 75 Intake Visit Reasons: pt req appointment Intake Note: Monica returns in follow up of GERD. CC: Patient reports that she is doing well and denies having any new GI symptoms. Career Development Coordinator/Teacher Required: No Career Development Coordinator/Teacher Name: Pt declined automotive parts interpreter Accompanied by: Self / Same As Patient Allergies iopamidol [From Isovue-M] Allergy (Mild, Verified 07/02/23 12:06) DEVELOPED THIGHTNESS IN THROAT Iodinated Contrast Media [CONTRAST, IV] Adverse Reaction (Intermediate, Verified 07/02/23 12:06) VOMITING HPI pt req appointment HPI Details Assessment & Plan (1) Chronic idiopathic constipation: Comment: Was on Linzess but then was able to manage by increasing her fiber and water intake daily aeb Code(s): K59.04 - Chronic idiopathic constipation Plan: Portuguese #declines Her stomach has been much worse lately. She has been taking her pantoprazole every day but she still suffering quite a bit of dyspepsia. There are no other new medications, no illness, and no diet changes to explain this. She never received the famotidine so I will resend this along with the pantoprazole so that she can take pantoprazole in the morning and famotidine at night until her stomach has some healing. She continues on her Colace and she like she is moving her bowels every day, but it be that she is not emptying completely so all sent some Amitiza to see if this helps with her stomach discomfort. This not helpful when may also consider simethicone although I do not think it covered [id number]. Eating she is due for another colonoscopy but she had 1 in 2018 along with an EGD and isn't due until 2024 at the earliest. I print out the paperwork for her so she can share this with her primary care provider who thinks she has not had 1 since 05/07. I will see her in 8 weeks to evaluate her response to treatment. (2) Abdominal bloating: Comment: Resolved with better bowel motility Code(s): R14.0 - Abdominal distension (gaseous) (3) GERD (gastroesophageal reflux disease): Code(s): K21.9 - Gastro-esophageal reflux disease without esophagitis Plan: Eb rush Her stomach has been much worse lately. She has been taking her pantoprazole every day but she still suffering quite a bit of dyspepsia. There are no other new medications, no illness, and no diet changes to explain this. She never received the famotidine so I will resend this along with the pantoprazole so that she can take pantoprazole in the morning and famotidine at night until her stomach has some healing. She continues on her Colace and she like she is moving her bowels every day, but it be that she is not emptying completely so all sent some Amitiza to see if this helps with her stomach discomfort. This not helpful when may also consider simethicone although I do not think it covered [id number]. Eating she is due for another colonoscopy but she had 1 in 2018 along with an EGD and isn't due until 2024 at the earliest. I print out the paperwork for her so she can share this with her primary care provider who thinks she has not had 1 since 05/07. I will see her in 8 weeks to evaluate her response to treatment. Medications: New pantoprazole 40 mg PO DAILY 30 tabs 6RF K21.9 - Gastro-eso phageal reflux dis ease without esoph agitis lubiprostone (Tylor liseth) 8 mcg PO BID 60 c aps 3RF Refilled famotidine (Pepcid ) 40 mg PO BEDTIME 60 tabs 6RF K21.9 - Gastro-eso phageal reflux dis ease without esoph agitis TODAY'S VISIT Eb rush She received the Amitiza and she is u sing it intermittently when the colace does not work. She will move her bowels 3 times a week, which is an improvement and she feels well with this. She also uses pruce juiced and prunes. She is due for colonoscopy next year, and she dislikes the peg prep as the volume is too much and she would like a lower volume prep when the time comes. She continues on the pantoprazole and famotide with good control of her GERD now. If she forgets the protonix she will have odynophagia and a very dry throat. She takes it qhs. ROV 6 mos. 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 Sister No problems noted. Social History Household Members: Children Housing: House Are you a primary care clinician to a significant other at home: No Do you presently have visiting nurse or other home services: No Unable to assess alcohol history related to: Unknown Alcohol intake: former Patient Tobacco Use Status: Never used Tobacco service: No Current occupational status: retired and disabled Review of Systems Const Denies fatigue, Denies fever(s), Denies night sweats, Denies poor appetite and Denies weight loss ENT Reports Normal hearing present, Denies dental pain, Denies dysphagia, Denies hearing loss, Denies mouth pain, Denies odynophagia, Denies throat swelling, Denies tongue swelling and Reports other (Dentition adequate) Card Reports no additional complaints Resp Reports no additional complaints GI Details: Denies abdominal pain, Denies melena, Denies bloating, Denies hematochezia, Reports constipation, Denies GI cramping, Denies dysphagia, Denies excessive flatus, Denies early satiety, Reports heartburn, Denies diarrhea, Denies nausea, Denies odynophagia, Denies vomiting and Denies hematemesis Skin/Breast Denies pruritus, Denies lesions, Denies rash and Denies jaundice Neuro Reports Normal hearing present and Denies Abnormal speech present Endo Denies fatigue Aller/Immun Denies throat swelling and Denies tongue swelling Physical Exam Vital Signs: Last Vital Signs Pulse 75 10/26/23 12:27 BP 180/82 H 10/26/23 12:27 BMI result Body Mass Index 27.9 Const General: cooperative, no acute distress, well developed and well groomed Nutritional Appearance: well nourished and overweight Orientation/consciousness: oriented to person, oriented to place and oriented to time Limitations: No language barrier HEENT Head: Yes normocephalic and Yes atraumatic Eyes General: appearance normal, both eyes and all related structures Pupils: Equal, round and reactive pupils present Neck Neck: Yes normal visual inspection and Yes no lymphadenopathy Thyroid: Thyroid normal Resp Effort & Inspection: normal respiratory effort and able to speak in complete sentences Auscultation: clear to auscultation bilaterally Cardio Rate: regular rate Rhythm: regular rhythm Heart sounds: Normal, physiologic split S2 sound present Peripheral pulses: radial pulses present and posterior tibial pulses present GI Inspection: No distended and No Abdominal panniculus present Palpation (GI): Soft to palpation, nontender, no guarding, not rigid and No hepatosplenomegaly present Percussion: Yes normal to percussion Auscultation: normal bowel sounds Rectal Exam - Female: deferred Skin General skin exam: no rashes or lesions noted, turgor normal, skin not dry, no jaundice, No spider nevi and no striae Rashes: no rashes Nails: normal Neuro General: oriented to person, oriented to place and oriented to time Cranial nerves: Yes Equal, round and reactive pupils present and Yes Normal hearing present Speech: No Abnormal speech present Extrem General: Yes normal to inspection, No clubbing, No cyanosis and No edema Psych Appearance: grossly normal and well kempt Mental Status: mental status grossly normal Speech and movement: Normal speech and movement present Affect: normal affect Attitude: cooperative Thought process: Normal thought process present and not confabulating Thought content: Normal thought content present Insight: Fair insight present (Psych) Judgement: Fair judgement present (Psych) Assessment & Plan Assessment & Plan (1) Chronic idiopathic constipation: Comment: Was on Linzess but then was able to manage by increasing her fiber and water intake daily aeb Code(s): K59.04 - Chronic idiopathic constipation (2) GERD (gastroesophageal reflux disease): Code(s): K21.9 - Gastro-esophageal reflux disease without esophagitis Plan Portuguese #declines She received the Amitiza and she is u sing it intermittently when the colace does not work. She will move her bowels 3 times a week, which is an improvement and she feels well with this. She also uses prune juiced and prunes. She is due for colonoscopy next year, and she dislikes the peg prep as the volume is too much and she would like a lower volume prep when the time comes. She continues on the pantoprazole and famotidine with good control of her GERD now. If she forgets the protonix she will have odynophagia and a very dry throat. She takes it qhs. She frequently forgets am dosed medications, including her BP meds. She forgot to take it today and her BP is running high. ROV 6 mos. Coding Level of Care Code Est Pt Level 3 (53656) Diagnoses Chronic idiopathic constipation K59.04 GERD (gastroesophageal reflux disease) K21.9
[2023-10-26 12:27] VITALS: BP 180/82; PULSE 75; BMI 27.9
== END 2023-10-26 13:01 | disposition home or self-care (01) ==
PROVIDERS: PCP Nurse Practitioner; Visit Provider Nurse Practitioner
DX: K59.04 Chronic idiopathic constipation (principal); K21.9 Gastro-esophageal reflux disease without esophagitis
CPT/HCPCS: 99213

== ENCOUNTER → 2023-10-26 12:21 | Outpatient (BNVA) | payer MEDICARE, SELFPAY | PROVIDERS: PCP Nurse Practitioner; Visit Provider Nurse Practitioner | DX: K59.04 Chronic idiopathic constipation (principal); K21.9 Gastro-esophageal reflux disease without esophagitis | CPT/HCPCS: 99212 ==

== ENCOUNTER 2023-11-02 10:36 | Outpatient (REF) | payer MEDICARE, SELFPAY ==
--- NOTE | ~2023-11-02 | MM_ITS ---
EXAMINATION: MM SCREENING DIGITAL BREAST TOMOSYNTHESIS, BILATERAL CLINICAL INFORMATION: Screening. Asymptomatic. Lumpectomy for left breast cancer, 2014. COMPARISON: Mammography: 10/26/2022, 10/23/2021, 07/25/2020, 07/06/2019, 07/04/2018 TECHNIQUE: Digital breast tomosynthesis is performed in both the craniocaudal and mediolateral oblique views along with computer-aided detection (CAD). Synthesized 2D images are generated from the tomosynthesis. Added left MLO was provided for inframammary fold. FINDINGS: There are scattered areas of fibroglandular density (ACR BI-RADS breast composition Category b). There are post therapy changes again noted left breast similar to prior studies with mild reduced breast size, and similar scarring central mid 12:00 position. There are scattered dystrophic calcifications in both breasts, as well as vascular calcifications. Neither breast shows interval mass, developing new architectural distortion, or suspicious grouped calcifications. No significant changes. MM/MM tomosynthesis screening BI IMPRESSION: No mammographic evidence of malignancy. Stable post therapy changes left breast. Stable benign changes both breasts. ASSESSMENT: BI-RADS BI-RADS 2 - Benign Findings RECOMMENDATION: Routine annual mammography screening. 1 year F/U This examination should not preclude the clinical evaluation of a suspicious palpable abnormality. This patient's information was entered into a reminder system with a target due date for their next mammogram.
== END 2023-11-02 10:37 | disposition home or self-care (01) ==
LOC: HO.MAMMO 10:36
PROVIDERS: PCP Student in an Organized Health Care Education/Training Program; Visit Provider Student in an Organized Health Care Education/Training Program
DX: Z12.31 Encounter for screening mammogram for malignant neoplasm of breast (principal)
CPT/HCPCS: 77063; 77067

== ENCOUNTER → 2023-11-02 11:00 | Outpatient (BNV) | payer MEDICARE, SELFPAY | PROVIDERS: PCP Student in an Organized Health Care Education/Training Program; Visit Provider Radiology Diagnostic Radiology | DX: Z12.31 Encounter for screening mammogram for malignant neoplasm of breast (principal) | CPT/HCPCS: 77063; 77067 ==

== ENCOUNTER 2023-12-07 09:48 | Outpatient (AMB) | payer MEDICARE, SELFPAY ==
--- NOTE | 2023-12-07 09:55 | MHC.OFFVIS ---
Vital Signs 12/07/23 10:03 Height 5 ft 1 in Weight 149 lb BMI 28.2 BP 197/89 H Blood Pressure Location Lt brachial Position Sitting Pulse 66 Intake Visit Reasons: yearly breast exam Intake Note: Patient is seen in office for yearly breast exam. Pt c/o: continued swelling of the left arm, is supposed to wear a brace but has not been prescribe mm: 11/02/23 Log Handling Equipment Operator Required: No Car Rental Sales Assistant: Car Rental Sales Assistant Present Accompanied by: Self / Same As Patient Allergies iopamidol [From Isovue-M] Allergy (Mild, Verified 12/07/23 10:01) DEVELOPED THIGHTNESS IN THROAT Iodinated Contrast Media [CONTRAST, IV] Adverse Reaction (Intermediate, Verified 12/07/23 10:01) VOMITING Medication List - Last Reconciled 12/07/23 by Saul Centeno MD atenolol 1 tab PO DAILY cyanocobalamin (vitamin B-12) 250 mcg PO DAILY docusate sodium 100 mg PO BID famotidine 40 mg PO BEDTIME hydrochlorothiazide 1 tab PO DAILY lubiprostone (Amitiza) 8 mcg PO BID pantoprazole 40 mg PO DAILY HPI Comments Details: Monica Suarez? is a 73-year-old female patient, former patient of Dr. Law presenting for breast cancer follow-up.? She underwent a left breast lumpectomy with left axillary dissection on 07/18/2015.? Pathology revealed infiltrating ductal carcinoma grade 3 1.7 cm in diameter, ER / IL positive, HER2 Antonio 3+.? Six of 9? left axillary lymph nodes were positive for metastatic carcinoma? ([id number],? stage IIIA ).? She was evaluated by Dr. Parker and treated with 6 cycles of Taxotere, Cytoxan, Herceptin, and pertuzumab.? She completed a year of Herceptin in August 2016 in then started letrozole.? This was stopped after developing severe arthralgias.? After a month she was started on? anastrozole which she is tolerating well. ? Radiation therapy to the left breast was completed on February 2016. Her most recent mammogram of 11/02/2023 revealed no mammographic evidence of malignancy (BIRAD 2). Routine annual mammogram is recommended in 1 year. She continues to report swelling of the left arm. 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 Sister No problems noted. Social History Household Members: Children Housing: House Are you a primary child care centre director to a significant other at home: No Do you presently have visiting nurse or other home services: No Unable to assess alcohol history related to: Unknown Alcohol intake: former Patient Tobacco Use Status: Never used Tobacco service: No Current occupational status: retired and disabled Review of Systems Const All systems reviewed & are unremarkable except as noted in HPI and below Card Denies chest pain, Denies irregular heart rhythm and Denies dyspnea Resp Denies cough, Denies excessive phlegm production and Denies dyspnea GI Reports no additional complaints Denies nipple discharge Skin/Breast Denies breast swelling, Denies breast skin changes, Reports breast pain, Denies breast mass, Denies change in breast shape and Denies nipple discharge Bobby/Lymph Denies lymphadenopathy Physical Exam Const General: cooperative, healthy appearing, comfortable, no acute distress and well developed HEENT Head: Yes normocephalic and Yes atraumatic Chest Other: Left breast: No new skin change, no nipple retraction, no nipple discharge, no palpable mass, no enlarged lymph nodes, well-healed incision upper outer quadrant. Right breast: No skin change, no nipple retraction, no nipple discharge, no palpable mass, no enlarged lymph nodes Chest/axillae images: 1. Incision upper outer quadrant with surrounding tenderness to palpation. GI Inspection: Yes normal to inspection Skin General skin exam: no rashes or lesions noted Extrem Other: No significant arm edema identified. 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 Patient's examination today reveals no evidence of recurrence disease in either breast. Recent mammogram in 11/02/2023 revealed no suspicious findings (BI-RADS 2 ). I recommended follow-up breast examinationin 1 year with a follow-up mammogram in 1 year as well. She is welcome to call sooner for any new concerns. She expressed understanding and agrees with the plan.
[2023-12-07 10:03] VITALS: BP 197/89; PULSE 66; BMI 28.2
== END 2023-12-07 10:12 | disposition home or self-care (01) ==
PROVIDERS: PCP Student in an Organized Health Care Education/Training Program; Visit Provider Surgery
DX: C50.912 Malignant neoplasm of unspecified site of left female breast (principal)
CPT/HCPCS: 99213

== ENCOUNTER → 2023-12-07 09:48 | Outpatient (BNVA) | payer MEDICARE, SELFPAY | PROVIDERS: PCP Student in an Organized Health Care Education/Training Program; Visit Provider Surgery | DX: C50.912 Malignant neoplasm of unspecified site of left female breast (principal) | CPT/HCPCS: 99212 ==

== ENCOUNTER 2024-02-10 11:40 | Outpatient (REF) | payer MEDICARE, SELFPAY ==
[2024-02-10 14:26] LABS: Anion Gap 13 (12-20); Blood Urea Nitrogen 19 mg/dL (9-16); Calcium 9.5 mg/dL (8.4-10.2); Carbon Dioxide 26 mmol/L (22-29); Chloride 105 mmol/L (96-108); Cholesterol 141 mg/dL (<200); Estimated Glomerular Filt Rate > 60; Glucose Random 95 mg/dL (60-115); HDL Cholesterol 34 mg/dL (>40); LDL Cholesterol Calculated 78 mg/dL (<100); Potassium 3.6 mmol/L (3.3-5.1); Sodium 140 mmol/L (135-145); Triglycerides 145 mg/dL (<150)
== END 2024-02-10 11:41 | disposition home or self-care (01) ==
LOC: HO.HHCL 11:40
PROVIDERS: Visit Provider Nurse Practitioner Family
DX: I10 Essential (primary) hypertension (principal)
CPT/HCPCS: 36415; 80048; 80061

== ENCOUNTER 2024-03-21 10:50 | Outpatient (AMB) | payer OTHER, SELFPAY ==
--- NOTE | 2024-03-21 11:03 | A.OFFVIS_ITS ---
Vital Signs 03/21/24 11:05 Height 5 ft 1 in Weight 141 lb 1.533 oz BMI 26.7 BP 160/58 H Blood Pressure Location Rt brachial Position Sitting Pulse 59 Intake Visit Reasons: Pt request constipation Intake Note: Monica presents in the office as a follow up for constipation. CC: She states that she is here today because she is having issues going to the bathroom. Marine Engineering Teacher Required: No Marine Engineering Teacher Name: Sonya [id number] Allergies iopamidol [From Isovue-M] Allergy (Mild, Verified 03/21/24 11:06) DEVELOPED THIGHTNESS IN THROAT Iodinated Contrast Media [CONTRAST, IV] Adverse Reaction (Intermediate, Verified 03/21/24 11:06) VOMITING HPI HPI Pt request constipation: Details: Assessment & Plan (1) Chronic idiopathic constipation: Comment: Was on Linzess but then was able to manage by increasing her fiber and water intake daily aeb Code(s): K59.04 - Chronic idiopathic constipation (2) GERD (gastroesophageal reflux disease): Code(s): K21.9 - Gastro-esophageal reflux disease without esophagitis Plan [place] #declines She received the Amitiza and she is using it intermittently when the colace does not work. She will move her bowels 3 times a week, which is an improvement and she feels well with this. She also uses prune juiced and prunes. She is due for colonoscopy next year, and she dislikes the peg prep as the volume is too much and she would like a lower volume prep when the time comes. She continues on the pantoprazole and famotidine with good control of her GERD now. If she forgets the protonix she will have odynophagia and a very dry throat. She takes it qhs. She frequently forgets am dosed medications, including her BP meds. She forgot to take it today and her BP is running high. ROV 6 mos. Laboratory Tests 02/14/24 10:31 WBC 7.6 Hgb 14.9 Hct 42.7 Plt Count 187 Estimated GFR > 60 Total Bilirubin 0.8 AST 24 ALT 19 Alkaline Phosphatase 94 TODAY'S VISIT [place] #declines The patient is due for colonoscopy screening. She is agreeable. She has been having more trouble with CIC and her docusate and mirlalx is not working. She has run out of the Amitiza and I will see if this can be PA approved again as Bryn was too strong. Likely, this is r/t hydration and the heat. Her GERD is well controlled on her pantorpazole 40mg qd and famotidine qhs. There are no prior problems with anesthesia or sedation. She denies any cardiac or respiratory problems. No ID problems. 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 Sister No problems noted. Social History Household Members: Children Housing: House Are you a primary resident care manager to a significant other at home: No Do you presently have visiting nurse or other home services: No Unable to assess alcohol history related to: Unknown Alcohol intake: former Patient Tobacco Use Status: Never used Tobacco service: No Current occupational status: retired and disabled Review of Systems Const Denies fatigue, Denies fever(s), Denies night sweats, Denies poor appetite and Denies weight loss ENT Reports Normal hearing present, Denies dental pain, Denies dysphagia, Denies hearing loss, Denies mouth pain, Denies odynophagia, Denies throat swelling, Denies tongue swelling and Reports other (Dentition adequate) Card Reports no additional complaints Resp Reports no additional complaints GI Details: Denies abdominal pain, Denies melena, Denies bloating, Denies hematochezia, Reports constipation, Denies GI cramping, Denies dysphagia, Denies excessive flatus, Denies early satiety, Reports heartburn, Denies diarrhea, Denies nausea, Denies odynophagia, Denies vomiting and Denies hematemesis Skin/Breast Denies pruritus, Denies lesions, Denies rash and Denies jaundice Neuro Reports Normal hearing present and Denies Abnormal speech present Endo Denies fatigue Aller/Immun Denies throat swelling and Denies tongue swelling Physical Exam Vital Signs: Last Vital Signs Pulse 59 03/21/24 11:05 BP 160/58 H 03/21/24 11:05 BMI result Body Mass Index 26.7 Const General: cooperative, no acute distress, well developed and well groomed Nutritional Appearance: average body habitus and well nourished Orientation/consciousness: oriented to person, oriented to place and oriented to time Limitations: No language barrier HEENT Head: Yes normocephalic and Yes atraumatic Eyes General: appearance normal, both eyes and all related structures Pupils: Equal, round and reactive pupils present Neck Neck: Yes normal visual inspection and Yes no lymphadenopathy Thyroid: Thyroid normal Resp Effort & Inspection: normal respiratory effort and able to speak in complete sentences Auscultation: clear to auscultation bilaterally Cardio Rate: regular rate Rhythm: regular rhythm Heart sounds: Normal, physiologic split S2 sound present Peripheral pulses: radial pulses present and posterior tibial pulses present GI Inspection: No distended and No Abdominal panniculus present Palpation (GI): Soft to palpation, nontender, no guarding, not rigid and No hepatosplenomegaly present Percussion: Yes normal to percussion Auscultation: normal bowel sounds Rectal Exam - Female: deferred Skin General skin exam: no rashes or lesions noted, turgor normal, skin not dry, no jaundice, No spider nevi and no striae Rashes: no rashes Nails: normal Neuro General: oriented to person, oriented to place and oriented to time Cranial nerves: Yes Equal, round and reactive pupils present and Yes Normal hearing present Speech: No Abnormal speech present Extrem General: Yes normal to inspection, No clubbing, No cyanosis and No edema Psych Appearance: grossly normal and well kempt Mental Status: mental status grossly normal Speech and movement: Normal speech and movement present Affect: normal affect Attitude: cooperative Thought process: Normal thought process present and not confabulating Thought content: Normal thought content present Insight: Fair insight present (Psych) Judgement: Fair judgement present (Psych) Assessment & Plan Assessment & Plan (1) GERD (gastroesophageal reflux disease): Code(s): K21.9 - Gastro-esophageal reflux disease without esophagitis Category: Medical (2) Chronic idiopathic constipation: Code(s): K59.04 - Chronic idiopathic constipation Category: Medical (3) Family history of colon cancer: Comment: scope 2019, negative, repeat 5 years 2023 Code(s): Z80.0 - Family history of malignant neoplasm of digestive organs Category: Medical Plan [place] #declines The patient is due for colonoscopy screening. She is agreeable. She has been having more trouble with CIC and her docusate and mirlalx is not working. She has run out of the Amitiza and I will see if this can be PA approved again as Linzess was too strong. Likely, this is r/t hydration and the heat. She says she is trying to increase her water but it seems she can not keep up with the losses. Her GERD is well controlled on her pantorpazole 40mg qd and famotidine qhs. There are no prior problems with anesthesia or sedation. She denies any cardiac or respiratory problems. No ID problems. She has a family history of CRC> Orders: Orders Colonoscopy - GI Use Only Today K59.04 - Chronic idiopathic constipation Medications: New polyethylene glycol 3350 (Miralax) 238 grams PO ONCE 238 grams 0RF colonoscopy prep 1 day bisacodyl (Dulcolax (bisacodyl)) 10 mg (2 x 5 mg) PO BEDTIME 4 tabs 0RF 2 days Refilled docusate sodium 100 mg PO BID 60 caps 6RF famotidine 40 mg PO BEDTIME 90 tabs 4RF K21.9 - Gastro-esophageal reflux disease without esophagitis lubiprostone (Amitiza) 8 mcg PO BID 60 caps 6RF pantoprazole 40 mg PO DAILY 90 tabs 2RF K21.9 - Gastro-esophageal reflux disease without esophagitis Coding Level of Care Code Est Pt Level 4 (19607) Diagnoses GERD (gastroesophageal reflux disease) K21.9 Chronic idiopathic constipation K59.04 Family history of colon cancer Z80.0
[2024-03-21 11:05] VITALS: BP 160/58; PULSE 59; BMI 26.7
== END 2024-03-21 11:37 | disposition home or self-care (01) ==
PROVIDERS: PCP Student in an Organized Health Care Education/Training Program; Visit Provider Nurse Practitioner
DX: K21.9 Gastro-esophageal reflux disease without esophagitis (principal); K59.04 Chronic idiopathic constipation; Z80.0 Family history of malignant neoplasm of digestive organs
CPT/HCPCS: 99214

== ENCOUNTER → 2024-03-21 10:50 | Outpatient (BNVA) | payer OTHER, SELFPAY | PROVIDERS: PCP Student in an Organized Health Care Education/Training Program; Visit Provider Nurse Practitioner | DX: K21.9 Gastro-esophageal reflux disease without esophagitis (principal); K59.04 Chronic idiopathic constipation; Z80.0 Family history of malignant neoplasm of digestive organs | CPT/HCPCS: 99212 ==

== ENCOUNTER → 2024-03-23 13:31 | Outpatient (REF) | payer OTHER, SELFPAY ==
--- NOTE | 2024-03-23 13:35 | CA_ITS ---
Transthoracic Echocardiogram Patient (Last, First, Middle): Monica Suarez, Gender: Female Date of : 1950 Age: 74 Procedure Date: 03/23/2024 Procedure Type: Transthoracic Echocardiogram Location: OP Height: 154.94 cm Weight: 66.23 kg BSA: 1.65 m2 Heart Rate: bpm BP: 144 / 82 mmHg Extractive Metallurgist: TO Referring MD: Aurelia Steiner SANDING LINE OPERATOR Medieval English Literature Professor: Polo Garcia MD Symptoms: R01.1 MURMUR Study Quality: Fair/Contrast ECG Rhythm: Sinus Conclusions: - 1. Normal LV ejection fraction 60 65% with impaired relaxation filling pattern 2. Calcific aortic and mitral valve changes noted with mild aortic and mitral regurgitation 3. Normal RV systolic pressure 4. No gross pericardial effusion Findings Procedure Information Contrast agent, definity, is being given per protocol without apparent complications. Left Ventricle Normal left ventricular size, thickness, and systolic function. The visually estimated ejection fraction is between 60-65%. Spectral Doppler is indicative of an impaired relaxation filling pattern. E/E prime ratio is between 8 and 15 consistent with indeterminate filling pressures. Right Ventricle Normal right ventricular cavity size and systolic function. Atria Both atria are normal in size. There is no evidence of interatrial shunt. Aortic Valve There is mild calcification of the aortic valve. There is mild thickening of the aortic valve. The peak aortic gradient is 9 mmHg.The mean gradient is 5 mmHg. The aortic valve area is 2.11 cm2. There is mild aortic valve regurgitation. Mitral Valve There is mild anterior and posterior mitral leaflet thickening. There is mild mitral annular calcification. There is mild mitral valve regurgitation. There is no mitral valve stenosis. Pulmonic Valve The pulmonic valve was not well visualized. Tricuspid Valve Likely normal tricuspid valve structure and function. There is trace tricuspid valve regurgitation. The right ventricular systolic pressure is normal. The right ventricular systolic pressure is 17 mmHg. Normal right atrial pressure. There is no evidence of pulmonary hypertension. Great Vessels The pulmonary artery was not well visualized. There is no dilatation of the ascending aorta measuring 3.40 cm. Venous The inferior vena cava is normal in size and collapses greater than 50% with inspiration. Pericardium/Pleural There is no evidence of pericardial effusion. Prior Study Comparison Changes noted compared to prior study dated: 08/14/2016. calcific aortic valve changes noted with mild aortic and mitral regurgitation Measurements 2D Linear Measurements IVSd: 1.17 0.6-0.9/0.6-1.0 cm LVIDd: 3.57 3.9-5.3/4.2-5.9 cm LVIDd Index: 2.16 2.4-3.2/2.2-3.1 cm/m2 LVIDs: 2.42 2.0-3.6 cm LVPWd: 0.89 0.7-1.1 cm LA Diam: 3.80 2.7-3.8/3.0-4.0 cm LAIDs Index: 2.30 1.5-2.3 cm/m2 LV Mass: 138.47 67-162/88-224 g LV Mass Index: 83.92 43-95/49-115 g/m2 LVOT Diam: 1.90 3.0+(-)1.3 cm 2D Systolic Function EF 4C: 68.10 >55% EF 2C: 60.10 >55% EF BiP: 62.60 >55% Mitral Valve MV Pk E: 0.79 MV PK A: 0.90 MV Decel Time: 141.00 E/A: 0.90 E'Lateral: 5.00 E'Medial: 3.15 E/E' Med: 25.00 E/E' Lat: 15.80 PHT: 41.00 MVA PHT: 5.37 Decel Bucks: 5.60 Aortic Valve AoV Pk Bernard: 1.54 AoV Mn Bernard: 1.01 AoV VTI: 0.34 AoV Pk Grad: 9.00 Aov Mn Grad: 5.00 MARYLOU Cont.VTI: 2.11 AI Pk Bernard: 4.24 AI VTI: 2.19 AI Bucks: 2.56 LVOT LVOT Pk Bernard: 1.00 LVOT Mn Bernard: 0.66 LVOT VTI: 0.26 LVOT Pk Grad: 4.00 LVOT Mn Grad: 2.00 LVOT Diam: 1.90 LVOT Area: 2.84 Diastolic Function MV Pk E: 0.79 MV Pk A: 0.90 E/A: 0.90 E'Medial: 3.15 E/E' Med: 25.00 E' Laterial: 5.00 E/E' Lat: 15.80 Right Ventricle TAPSE (mm): 22.90 TVS' Bernard: 11.40 Tricuspid Valve TR Pk Bernard: 1.85 TR Pk Grad: 14.00 RA Press: 3.00 RVSP: 17.00 Great Vessels Aorta Sinus of Valsalva: 2.79 2.0-3.5 cm Ao Asc: 3.40 2.1-3.4 cm Updated in Other Vendor System with Status of Final Polo Garcia MD electronically signed on 03/24/2024 12:12:07 PM with status of Final
== END ==
LOC: HO.CARD 13:31
PROVIDERS: PCP Student in an Organized Health Care Education/Training Program; Visit Provider Nurse Practitioner Family
DX: R01.1 Cardiac murmur, unspecified (principal)
CPT/HCPCS: 93306; Q9957

== ENCOUNTER → 2024-03-23 13:35 | Outpatient (BNV) | payer OTHER, SELFPAY | PROVIDERS: PCP Student in an Organized Health Care Education/Training Program; Visit Provider Internal Medicine Cardiovascular Disease | DX: I35.1 Nonrheumatic aortic (valve) insufficiency (principal); I35.8 Other nonrheumatic aortic valve disorders; I34.0 Nonrheumatic mitral (valve) insufficiency | CPT/HCPCS: 93306 ==

== ENCOUNTER 2024-05-02 10:34 | Outpatient (REF) | payer OTHER, SELFPAY ==
--- NOTE | ~2024-05-02 | US_ITS ---
EXAMINATION: US RETROPERITONEAL LIMITED (RENAL ONLY) CLINICAL INFORMATION: Other microscopic hematuria. COMPARISON: Renal ultrasound 11/25/2022. CT abdomen and pelvis 08/23/2015. TECHNIQUE: Real-time imaging of the kidneys. FINDINGS: RIGHT KIDNEY: 12.1 x 4.4 x 4.2 cm (SAG x AP x TRV). The kidney is normal in size, contour, and echogenicity. Renal cortical thickness is normal. No renal calculi or hydronephrosis. Simple appearing cyst in the interpolar kidney measuring 0.8 cm. LEFT KIDNEY: 11.1 x 4.5 x 4.2 cm (SAG x AP x TRV). The kidney is normal in size, contour, and echogenicity. Renal cortical thickness is normal. No renal calculi or hydronephrosis. Simple appearing cyst in the upper pole measuring 1.8 cm. US/US renal BI IMPRESSION: No acute sonographic abnormalities. Simple-appearing bilateral cysts, for which no routine follow-up is recommended. Electronically signed by: Ayah Javier MD 05/09/2024 04:01 PM EDT
== END 2024-05-02 10:35 | disposition home or self-care (01) ==
LOC: HO.US 10:34
PROVIDERS: PCP Student in an Organized Health Care Education/Training Program; Visit Provider Urology
DX: R31.29 Other microscopic hematuria (principal); N30.90 Cystitis, unspecified without hematuria
CPT/HCPCS: 76775

== ENCOUNTER 2024-05-07 20:13 | Emergency (ER) | payer OTHER, SELFPAY ==
--- NOTE | 2024-05-07 | ECG_ITS ---
Test Reason : FALL Blood Pressure : / mmHG Vent. Rate : 068 BPM Atrial Rate : 068 BPM P-R Int : 166 ms QRS Dur : 068 ms QT Int : 406 ms P-R-T Axes : 051 002 008 degrees QTc Int : 431 ms Normal sinus rhythm Minimal voltage criteria for LVH, may be normal variant ( R in aVL ) Borderline ECG When compared with ECG of 01-SEP-2023 11:34, No significant change was found Referred By: Generic ED Physician Electronically Signed By:GRACE ZHOA
--- NOTE | ~2024-05-07 | CT_ITS ---
EXAMINATION: CT HEAD WITHOUT CONTRAST CT CERVICAL SPINE WITHOUT CONTRAST CLINICAL INFORMATION: Trauma. COMPARISON: CT head and cervical spine from 09/01/2023. TECHNIQUE: Contiguous axial imaging was performed from the skull base to vertex without intravenous administration of contrast. Contiguous axial imaging was performed from the upper chest through the skull base without intravenous administration of contrast. Coronal and sagittal reformats were obtained at the acquisition workstation. This CT examination was performed using dose optimization techniques as appropriate, variously including the following: *Automated exposure control. *Adjustment of mA and/or kV according to patient size (this includes techniques or standardized protocols for targeted exams where dose is matched to indication/reason for exam; i.e. extremities or head). *Use of iterative reconstruction technique. DLP: 1046 mGy-cm FINDINGS: Head: There is no evidence of acute intracranial hemorrhage or edematous territorial infarction. Chronic lacunar infarct of the right lentiform nucleus. No new loss of tristan-white matter differentiation. Scattered and partially confluent hypoattenuation in the periventricular and deep white matter are consistent with moderate microangiopathy. Proportional prominence of the ventricles and sulcal spaces without evidence of obstructive hydrocephalus. No abnormal mass effect or midline shift. No extra-axial fluid collections. Calcific atherosclerotic disease of the intracranial internal carotid and vertebral arteries. No hyperdense vessel sign. Small subgaleal hematoma along the right aspect of the frontal bone, measuring up to 0.2 cm in depth. No associated acute osseous calvarial abnormalities. Mild mucosal thickening of the paranasal sinuses. Mild rightward nasal septal deviation. The mastoid air cells and middle ear cavities are clear. Bilateral lens extractions. Left-sided staphyloma. Cervical Spine: The atlantooccipital and atlantoaxial articulations remain well aligned. Moderate degenerative arthropathy at the atlantodental articulation. Straightening of the normal cervical lordosis. Moderate degenerative anterolisthesis of C7 on T1. Otherwise, there is anatomic alignment of the vertebral bodies and posterior elements. Ankylosis of C2-C3. No evidence of acute fracture or subluxation. The vertebral body heights are maintained. Moderate degenerative disc disease from C5-T1. Facet and uncovertebral joint arthropathy leads to osseous encroachment on the neural foramina from C3-T1. There is no prevertebral soft tissue swelling. There is a 1.6 cm hypoattenuating nodule in the right thyroid lobe. The remaining cervical soft tissues are within normal limits. The lung apices demonstrate no abnormalities. CT/CT cervical spine wo IV con IMPRESSION: 1. No evidence of acute intracranial hemorrhage or edematous territorial infarction. Moderate underlying microangiopathy and generalized cerebral volume loss. 2. No evidence of acute fracture or traumatic subluxation of the cervical spine. Moderate multilevel degenerative spondyloarthropathy of the cervical spine. 3. Small right frontal scalp hematoma. No associated osseous calvarial abnormalities. 4. There is a 1.6 cm nodule in the right thyroid lobe. If not previously evaluated, recommend further characterization with thyroid ultrasound. Electronically signed by: Ta Pringle DO 05/07/2024 11:20 PM EDT
[2024-05-07 20:54] VITALS: BP 195/64; PULSE 70; RESP 18; TEMP 36.8; O2SAT 96; BMI 27.4
[2024-05-07 21:31] LABS: Hematocrit 39.8 % (37.0-47.0); Hemoglobin 14.3 g/dl (12.0-16.0); Mean Corpuscular HGB Conc 35.9 g/dl (31.0-35.0); Mean Corpuscular Hemoglobin 31.3 pg (27.0-33.0); Mean Corpuscular Volume 87.1 fL (80.0-98.0); Mean Platelet Volume 10.6 fL (9.4-12.3); Platelet Count 185 X10*3/uL (160-400); Red Blood Count 4.57 X10*6/uL (4.20-5.50); Red Cell Distribution Width 13.5 % (11.0-16.0); White Blood Count 9.6 X10*3/uL (4.8-10.8)
[2024-05-07 21:36] LABS: Prothrombin Time 11.6 SEC (10.9-12.4)
[2024-05-07 21:48] LABS: Anion Gap 14 (12-20); Blood Urea Nitrogen 13 mg/dL (9-16); Calcium 9.6 mg/dL (8.4-10.2); Carbon Dioxide 26 mmol/L (22-29); Chloride 107 mmol/L (96-108); Creatinine Clr Calc Pharmacy 54.4; Estimated Glomerular Filt Rate > 60; Glucose Random 114 mg/dL (60-115); Potassium 3.6 mmol/L (3.3-5.1); Sodium 143 mmol/L (135-145)
[2024-05-07 22:20] LABS: Troponin-I High Sensitivity < 2.7 ng/L (<3.5-17.0)
[2024-05-07 22:40] VITALS: BP 166/64; PULSE 71; RESP 16; TEMP 36.4; O2SAT 95
--- NOTE | 2024-05-07 23:18 | ED_ITS ---
HPI - General Adult General Chief complaint: Fall Stated complaint: fall bump head Time Seen by Provider: 05/07/24 22:34 Source: patient and family (daughter who is bedside) Mode of arrival: ambulatory Limitations: no limitations History of Present Illness ED Provider: Piyush HPI narrative: 74-year-old female past medical history significant for hypertension presents for evaluation of a fall. Just prior to arrival, the patient was trying to get out of a chair. Per the patient and her daughter who witnesses, the patient's chair started to slide backwards and she ended up falling forward She was unable to catch herself and she fell forward striking the right side of her head She did not lose consciousness. She had some mild dizziness when she hit her head this resolved after a few minutes She also complains of a mild headache. She had denies any anticoagulation She is also not on aspirin or Plavix She has a small abrasion to her knee but denies knee pain, she was ambulatory after the fall Related Data Home Medications ?Medication ?Instructions ?Recorded ?Confirmed atenolol 25 mg tablet 1 tab PO DAILY 07/23/20 02/14/24 hydrochlorothiazide 12.5 mg tablet 1 tab PO DAILY 07/23/20 02/14/24 cyanocobalamin (vitamin B-12) 250 250 mcg PO DAILY 10/03/20 02/14/24 mcg tablet lisinopril 20 mg tablet 20 mg PO DAILY 03/21/24 Previous Rx's ?Medication ?Instructions ?Recorded bisacodyl 5 mg tablet,delayed 10 mg (2 x 5 mg) PO BEDTIME 2 days 03/21/24 release (Dulcolax (bisacodyl)) #4 tabs docusate sodium 100 mg capsule 100 mg PO BID #60 caps 03/21/24 famotidine 40 mg tablet 40 mg PO BEDTIME #90 tabs 03/21/24 lubiprostone 8 mcg capsule 8 mcg PO BID #60 caps 03/21/24 (Amitiza) pantoprazole 40 mg tablet,delayed 40 mg PO DAILY #90 tabs 03/21/24 release polyethylene glycol 3350 17 238 g PO ONCE colonoscopy prep 1 03/21/24 gram/dose oral powder (Miralax) day #238 grams Allergies Allergy/AdvReac Type Severity Reaction Status Date / Time iopamidol [From Isovue-M] Allergy Mild DEVELOPED Verified 05/07/24 20:56 THIGHTNESS IN THROAT Iodinated Contrast Media AdvReac Intermediate VOMITING Verified 05/07/24 20:56 [CONTRAST, IV] Review of Systems 2 Constitutional: Constitutional: Denies body ache(s), Denies fever(s), Denies frequent falls and Reports headache(s) Eyes: Eyes: Denies blurry vision ENT: Reports dizziness (resolved) and Reports headache(s) Cardiovascular: Cardiovascular: Denies chest pain and Denies dyspnea Respiratory: Respiratory: Denies cough and Denies dyspnea Gastrointestinal: Gastrointestinal: Denies abdominal pain, Denies nausea and Denies vomiting Musculoskeletal: Musculoskeletal: Denies back pain Integumentary/Breasts: Skin/Breast: Denies rash Neurologic: Reports dizziness (resolved), Denies frequent falls and Reports headache(s) [facility] Past Medical History Medical History (Updated 05/07/24 @ 23:23 by Héctor Pickett) 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 Sister No problems noted. Social History Social History Household Members: Children Housing: House Are you a primary direct care specialist to a significant other at home: No Do you presently have visiting nurse or other home services: No Unable to assess alcohol history related to: Unknown Alcohol intake: former Patient Tobacco Use Status: Never used Tobacco Advance Directives: Yes Advance Directives Information Provided: No Advance Directives on File: No service: No Current occupational status: retired and disabled Physical Exam ED Vital Signs: Vital Signs - 24 hr 05/07/24 20:54 05/07/24 22:40 Temperature 98.2 F 97.6 F Pulse Rate 70 71 Respiratory Rate 18 16 Blood Pressure 195/64 H 166/64 H Pulse Oximetry 96 95 Oxygen Delivery Method Room Air Room Air BMI result Body Mass Index 27.4 Const General: healthy appearing, comfortable, no acute distress, alert and awake Nutritional Appearance: well nourished Orientation/consciousness: patient oriented x3 HENMT Other: There is a small cutaneous hematoma in the right parietal region, no lacerations Eyes Eyelids: Yes eyelids normal Conjunctivae: conjunctivae normal Sclerae: sclerae normal Corneas: corneas normal Pupils: Equal, round and reactive pupils present EOM: EOMs intact bilaterally Neck Neck: Yes full ROM Resp Effort & Inspection: normal respiratory effort, able to speak in complete sentences and not labored Cardio Rate: regular rate Rhythm: regular rhythm GI Inspection: No distended Palpation (GI): Soft to palpation, not firm, nontender, no guarding and not rigid Back/Spine/Pelvis Cervical Spine: No Cervical spine tenderness Skin General skin exam: elasticity normal Neuro General: patient oriented x3 Cranial nerves: Yes CN's II-XII intact bilaterally, Yes Equal, round and reactive pupils present and Yes Bilaterally intact EOM present Cognition (Neuro): normal cognition Extrem Other: Moving all extremities well without any obvious deformities Medical Decision Making Medical Decision Making MDM Narrative: 74-year-old female presents for evaluation of a nonsyncopal fall. She is not on any anticoagulation, however he had a CT scan of the brain C-spine given the fall with head strike. She has an NIH stroke score is 0, labs on any digital ordered in triage. There are no concerning chemistry abnormalities, patient's hematology with no worrisome abnormalities. EKG shows a normal sinus rhythm with a rate of [address] segment changes Differential Diagnosis Differential Diagnoses: The differential diagnosis associated with the presentation includes Nonsyncopal fall Contusion Intracranial hemorrhage Cervical fracture Cervical strain Syncope less likely Lab Data [facility] Lab Attestation statement: I reviewed the patient's lab results. 05/07/24 21:25 05/07/24 21:25 Labs: Lab Results 05/07/24 Range/Units 21:25 WBC 9.6 (4.8-10.8) X10*3/uL RBC 4.57 (4.20-5.50) X10*6/uL Hgb 14.3 (12.0-16.0) g/dl Hct 39.8 (37.0-47.0) % MCV 87.1 (80.0-98.0) fL MCH 31.3 (27.0-33.0) pg MCHC 35.9 H (31.0-35.0) g/dl RDW 13.5 (11.0-16.0) % Plt Count 185 (160-400) X10*3/uL MPV 10.6 (9.4-12.3) fL Absolute Nucleated RBC 0.000 (0.0-0.012) X10*3/uL Nucleated RBC % (auto) 0.0 (0.0-0.2) /100WBC PT 11.6 (10.9-12.4) SEC INR 1.0 (0.9-1.1) Sodium 143 (135-145) mmol/L Potassium 3.6 (3.3-5.1) mmol/L Chloride 107 (96-108) mmol/L Carbon Dioxide 26 (22-29) mmol/L Anion Gap 14 (12-20) BUN 13 (9-16) mg/dL Creatinine 0.80 (0.5-1.4) mg/dL Estim Creat Clear Calc 54.4 Estimated GFR > 60 Random Glucose 114 (60-115) mg/dL Calcium 9.6 (8.4-10.2) mg/dL Troponin I High Sens < 2.7 (<3.5-17.0) ng/L Independent Interpretation I performed an independent interpretation of an: EKG Discharge Plan Discharge Clinical Impression: Minor closed head injury Patient Disposition: Home, Self-Care Instructions: Head Injury (ED) Additional Instructions: Your workup in the ER today was reassuring. Your CT scans did not show any evidence of traumatic injuries You do have an incidental finding of a right-sided thyroid nodule Follow this up with your primary doctor if it has not already been evaluated Your blood work was reassuring You may use ibuprofen or Tylenol as needed for pain Prescriptions: No Action atenolol 25 mg tablet 1 tab PO DAILY hydrochlorothiazide 12.5 mg tablet 1 tab PO DAILY cyanocobalamin (vitamin B-12) 250 mcg tablet 250 mcg PO DAILY lisinopril 20 mg tablet 20 mg PO DAILY polyethylene glycol 3350 [Miralax] 17 gram/dose powder 238 g PO ONCE 1 Days Qty: 238 0RF bisacodyl [Dulcolax (bisacodyl)] 5 mg tablet,delayed release (DR/EC) 10 mg PO BEDTIME 2 Days Qty: 4 0RF lubiprostone [Amitiza] 8 mcg capsule 8 mcg PO BID Qty: 60 6RF docusate sodium 100 mg capsule 100 mg PO BID Qty: 60 6RF pantoprazole 40 mg tablet,delayed release (DR/EC) 40 mg PO DAILY Qty: 90 2RF famotidine 40 mg tablet 40 mg PO BEDTIME Qty: 90 4RF Print Language: Moroccan Sign Language
[2024-05-07 23:33] VITALS: BP 0/0; PULSE 0; RESP 16; TEMP -17.7; TEMP 0; O2SAT 0
== END 2024-05-07 23:34 | disposition home or self-care (01) ==
PROVIDERS: Emergency Provider Emergency Medicine; PCP Nurse Practitioner Psychiatric/Mental Health
DX: S09.90XA Unspecified injury of head, initial encounter (principal); S80.211A Abrasion, right knee, initial encounter; R94.31 Abnormal electrocardiogram [ECG] [EKG]; R51.9 Headache, unspecified; I10 Essential (primary) hypertension; W18.30XA Fall on same level, unspecified, initial encounter; Y93.89 Activity, other specified; Y92.89 Other specified places as the place of occurrence of the external cause; Y99.8 Other external cause status; Z79.899 Other long term (current) drug therapy; Z51.81 Encounter for therapeutic drug level monitoring
CPT/HCPCS: 36415; 70450; 72125; 80048; 84484; 85027; 85610; 93005; 99284

== ENCOUNTER 2024-05-16 11:59 | Outpatient (AMB) | payer OTHER, SELFPAY ==
[2024-05-16 12:05] VITALS: BP 156/70; PULSE 63; BMI 27.1
--- NOTE | 2024-05-16 12:05 | MHC.OFFVIS ---
Vital Signs 05/16/24 12:05 Height 5 ft 1 in Weight 143 lb 4.807 oz BMI 27.1 BP 156/70 H Blood Pressure Location Rt brachial Position Sitting Pulse 63 Intake Visit Reasons: 8 week follow up Intake Note: Monica presents to in office follow up of CIC. CC: Patient reports that if she does not take her medications she is not able to have a BM, but with medications she is able to have a BM almost every day. She states that she suffered a fall last Wednesday and went to the ER where CT scan showed she has a thyroid nodule. Denies other GI symptoms today. 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 Accompanied by: Self / Same As Patient Allergies iopamidol [From Isovue-M] Allergy (Mild, Verified 05/16/24 12:10) DEVELOPED THIGHTNESS IN THROAT Iodinated Contrast Media [CONTRAST, IV] Adverse Reaction (Intermediate, Verified 05/16/24 12:10) VOMITING HPI HPI 8 week follow up: Details: Assessment & Plan (1) GERD (gastroesophageal reflux disease): Code(s): K21.9 - Gastro-esophageal reflux disease without esophagitis Category: Medical (2) Chronic idiopathic constipation: Code(s): K59.04 - Chronic idiopathic constipation Category: Medical (3) Family history of colon cancer: Comment: scope 2019, negative, repeat 5 years 2023 Code(s): Z80.0 - Family history of malignant neoplasm of digestive organs Category: Medical Plan Greek #declines The patient is due for colonoscopy screening. She is agreeable. She has been having more trouble with CIC and her docusate and mirlalx is not working. She has run out of the appssavvytiAngiodroid and I will see if this can be PA approved again as Linzess was too strong. Likely, this is r/t hydration and the heat. She says she is trying to increase her water but it seems she can not keep up with the losses. Her GERD is well controlled on her pantorprazole 40mg qd and famotidine qhs. There are no prior problems with anesthesia or sedation. She denies any cardiac or respiratory problems. No ID problems. She has a family history of CRC> Orders: Orders Colonoscopy - GI Use Only Today K59.04 - Chronic idiopathic constipation Medications: New polyethylene glycol 3350 (Miralax) 238 grams PO ONCE 238 grams 0RF colonoscopy prep 1 day bisacodyl (Dulcolax (bisacodyl)) 10 mg (2 x 5 mg) PO BEDTIME 4 tabs 0RF 2 days Refilled docusate sodium 100 mg PO BID 60 caps 6RF famotidine 40 mg PO BEDTIME 90 tabs 4RF K21.9 - Gastro-esophageal reflux disease without esophagitis lubiprostone (Amitiza) 8 mcg PO BID 60 caps 6RF pantoprazole 40 mg PO DAILY 90 tabs 2RF K21.9 - Gastro-esophageal reflux disease without esophagitis COLONOSCOPY 07/19/2024 BIOPSY CORRESPONDENCE On 03/24/24 @ 10:03 Kamala Valiente Wrote To Chelsea Kamala Valiente removed from item. On 03/24/24 @ 08:18 Erin Valdes Wrote To Chelsea (2) Lubiprostone approved - scanned in chart. TODAY'S VISIT Greek #declines She is still struggling with CIC, but she was unaware of what her Amitiza was for, and when she took it she was only taking it qd. I educate her and show her pictures of the pills and she confirms that she has it at home. SHe commits to taking it bid and we will get her back in 6 weeks to eval her response. She continues on her famotidine and pantoprazole with good control of her GERD. ROV 6 weeks. 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 Sister No problems noted. Social History Household Members: Children Housing: House Are you a primary acute care assistant to a significant other at home: No Do you presently have visiting nurse or other home services: No Unable to assess alcohol history related to: Unknown Alcohol intake: former Patient Tobacco Use Status: Never used Tobacco service: No Current occupational status: retired and disabled Review of Systems Const Denies fatigue, Denies fever(s), Denies night sweats, Denies poor appetite and Denies weight loss ENT Reports Normal hearing present, Denies dental pain, Denies dysphagia, Denies hearing loss, Denies mouth pain, Denies odynophagia, Denies throat swelling, Denies tongue swelling and Reports other (Dentition adequate) Card Reports no additional complaints Resp Reports no additional complaints GI Details: Denies abdominal pain, Denies melena, Denies bloating, Denies hematochezia, Reports constipation, Denies GI cramping, Denies dysphagia, Denies excessive flatus, Denies early satiety, Reports heartburn, Denies diarrhea, Denies nausea, Denies odynophagia, Denies vomiting and Denies hematemesis Skin/Breast Denies pruritus, Denies lesions, Denies rash and Denies jaundice Neuro Reports Normal hearing present and Denies Abnormal speech present Endo Denies fatigue Aller/Immun Denies throat swelling and Denies tongue swelling Physical Exam Vital Signs: Last Vital Signs Pulse 63 05/16/24 12:05 BP 156/70 H 05/16/24 12:05 BMI result Body Mass Index 27.1 Const General: cooperative, no acute distress, well developed and well groomed Nutritional Appearance: average body habitus and well nourished Orientation/consciousness: oriented to person, oriented to place and oriented to time Limitations: No language barrier HEENT Head: Yes normocephalic and Yes atraumatic Eyes General: appearance normal, both eyes and all related structures Pupils: Equal, round and reactive pupils present Neck Neck: Yes normal visual inspection and Yes no lymphadenopathy Thyroid: Thyroid normal Resp Effort & Inspection: normal respiratory effort and able to speak in complete sentences Auscultation: clear to auscultation bilaterally Cardio Rate: regular rate Rhythm: regular rhythm Heart sounds: Normal, physiologic split S2 sound present Peripheral pulses: radial pulses present and posterior tibial pulses present GI Inspection: No distended and No Abdominal panniculus present Palpation (GI): Soft to palpation, nontender, no guarding, not rigid and No hepatosplenomegaly present Percussion: Yes normal to percussion Auscultation: normal bowel sounds Rectal Exam - Female: deferred Skin General skin exam: no rashes or lesions noted, turgor normal, skin not dry, no jaundice, No spider nevi and no striae Rashes: no rashes Nails: normal Neuro General: oriented to person, oriented to place and oriented to time Cranial nerves: Yes Equal, round and reactive pupils present and Yes Normal hearing present Speech: No Abnormal speech present Extrem General: Yes normal to inspection, No clubbing, No cyanosis and No edema Psych Appearance: grossly normal and well kempt Mental Status: mental status grossly normal Speech and movement: Normal speech and movement present Affect: normal affect Attitude: cooperative Thought process: Normal thought process present and not confabulating Thought content: Normal thought content present Insight: Limited insight present (Psych) Judgement: Limited judgement present (Psych) Assessment & Plan Assessment & Plan (1) Chronic idiopathic constipation: Code(s): K59.04 - Chronic idiopathic constipation Category: Medical (2) GERD (gastroesophageal reflux disease): Code(s): K21.9 - Gastro-esophageal reflux disease without esophagitis Category: Medical Plan Greek #declines She is still struggling with CIC, but she was unaware of what her Amitiza was for, and when she took it she was only taking it qd. I educate her and show her pictures of the pills and she confirms that she has it at home. SHe commits to taking it bid and we will get her back in 6 weeks to eval her response. She continues on her famotidine and pantoprazole with good control of her GERD. ROV 6 weeks. COLONOSCOPY 07/19/2024 BIOPSY Coding Level of Care Code Est Pt Level 3 (92928) Diagnoses Chronic idiopathic constipation K59.04 GERD (gastroesophageal reflux disease) K21.9
== END 2024-05-16 12:46 | disposition home or self-care (01) ==
PROVIDERS: PCP Student in an Organized Health Care Education/Training Program; Visit Provider Nurse Practitioner
DX: K59.04 Chronic idiopathic constipation (principal); K21.9 Gastro-esophageal reflux disease without esophagitis
CPT/HCPCS: 99213

== ENCOUNTER 2024-05-16 11:59 | Outpatient (REF) | payer OTHER, SELFPAY ==
[2024-05-16 14:43] LABS: TSH reflex Free T4 0.79 uIU/mL (0.32-4.0)
[2024-05-17 13:48] LABS: Triiodothyronine T3 Total 117 ng/dL (76-181)
[2024-05-17 19:19] LABS: Thyroglobulin Antibodies <1 IU/mL (< or = 1)
== END 2024-05-16 12:00 | disposition home or self-care (01) ==
LOC: HO.LAB 11:59
PROVIDERS: Absent Provider Nurse Practitioner Family; PCP Nurse Practitioner Family; Visit Provider Nurse Practitioner
DX: E04.1 Nontoxic single thyroid nodule (principal); K59.04 Chronic idiopathic constipation; Z80.0 Family history of malignant neoplasm of digestive organs
CPT/HCPCS: 36415; 84443; 84480; 86800; 99212

== ENCOUNTER 2024-06-08 14:27 | Outpatient (REF) | payer OTHER, SELFPAY ==
--- NOTE | ~2024-06-08 | US_ITS ---
EXAMINATION: US THYROID CLINICAL INFORMATION: Node found on CT. COMPARISON: CT cervical spine 05/07/2024. TECHNIQUE: Linear transducer grayscale and color Doppler examination with attention to the region of the thyroid. FINDINGS: SIZE: Measurements of the thyroid lobes and nodules are given in sagittal, anteroposterior and transverse dimensions respectively. Right Thyroid Lobe: 5.4 x 1.8 x 1.4 cm, volume 7.0 mL. Parenchyma: The gland echotexture is heterogeneous. Thyroid vascularity is normal. Left Thyroid Lobe: 3.0 x 1.4 x 1.1 cm, volume 2.4 mL. Parenchyma: The gland echotexture is homogeneous. Thyroid vascularity is normal. Isthmus: 0.5 cm in maximum AP dimension. Estimated total number of nodules greater than or equal to 1 cm: 1. Telegraph Installer nodules are described as follows: 1. Location: Isthmus. Size: 0.5 x 0.4 x 0.5 cm, volume 0.06 mL. Nodule characteristics: Composition: Solid (2). Echogenicity: Hyperechoic (1). Shape: Not taller than wide (0). Margins: Smooth (0). Echogenic Foci: Macrocalcifications (1). ACR TI-RADS total points: 4 ACR TI-RADS category: 4 2. Location: Right mid pole. Size: 0.6 x 0.5 x 0.7 cm, volume 0.11 mL. Nodule characteristics: Composition: Spongiform (0). ACR TI-RADS total points: 0 ACR TI-RADS category: 1 3. Location: Right mid pole. Size: 1.3 x 0.6 x 1.0 cm, volume 0.44 mL. Nodule characteristics: Composition: Cystic(0). ACR TI-RADS total points: 0 ACR TI-RADS category: 1 4. Location: Right mid pole. Size: 0.7 x 0.5 x 0.7 cm, volume 0.14 mL. Nodule characteristics: Composition: Spongiform (0). ACR TI-RADS total points: 0 ACR TI-RADS category: 1 5. Location: Left mid pole. Size: 0.7 x 0.6 x 0.9 cm, volume 0.18 mL. Nodule characteristics: Composition: Spongiform (0). ACR TI-RADS total points: 0 ACR TI-RADS category: 1 NODES: No lymphadenopathy is seen in the tissue surrounding the thyroid gland. US/US thyroid IMPRESSION: 1. Bilateral thyroid nodules are seen, as detailed. No specific imaging follow-up is recommended. 2. There is heterogeneous thyroid echotexture, which can be associated with thyroiditis. ACR TI-RADS RECOMMENDATION REFERENCE: Ultrasound-guided fine-needle aspiration, followup ultrasound, no further follow up. * TR1 (0 point) and TR2 (2 points): No FNA or follow up. * TR3 (3 points): FNA if more than or equal to 2.5 cm in maximum dimension, followup ultrasound in 1, 3 and 5 years if 1.5 to 2.4 cm in maximum dimension. * TR4 (4-6 points): FNA if more than or equal to 1.5 cm in maximum dimension, followup ultrasound in 1, 2, 3 and 5 years if 1 to 1.4 cm in maximum dimension. * TR5 (more than or equal to 7 points): FNA if more than or equal to 1 cm in maximum dimension, followup ultrasound every year for 5 years if 0.5 to 0.9 cm in maximum dimension. * TR3, TR4 or TR5 nodules that are below the size threshold for followup receive no follow up. Electronically signed by: Saul Reed MD 07/05/2024 06:44 PM ERNESTO HERMOSILLO
== END 2024-06-08 14:28 | disposition home or self-care (01) ==
LOC: HO.US 14:27
PROVIDERS: PCP Nurse Practitioner Family; Visit Provider Nurse Practitioner Family
DX: E04.1 Nontoxic single thyroid nodule (principal)
CPT/HCPCS: 76536

== ENCOUNTER 2024-06-28 13:27 | Outpatient (AMB) | payer OTHER, SELFPAY ==
--- NOTE | 2024-06-28 13:37 | A.OFFVIS_ITS ---
Vital Signs 06/28/24 13:56 Height 5 ft 1 in Weight 145 lb 1.027 oz BMI 27.4 BP 170/74 H Blood Pressure Location Rt brachial Position Sitting Pulse 66 Intake Visit Reasons: 6 week follow up Intake Note: Monica presents in follow up of CIC. CC: Patient reports dry throat , and states her symptoms are well controlled with medications. Electrical Equipment Assembler Required: Yes Accompanied by: Self / Same As Patient Allergies iopamidol [From Isovue-M] Allergy (Mild, Verified 08/02/24 11:43) DEVELOPED THIGHTNESS IN THROAT Iodinated Contrast Media [CONTRAST, IV] Adverse Reaction (Intermediate, Verified 08/02/24 11:43) VOMITING HPI HPI 6 week follow up: Details: Assessment & Plan (1) Chronic idiopathic constipation: Code(s): K59.04 - Chronic idiopathic constipation Category: Medical (2) GERD (gastroesophageal reflux disease): Code(s): K21.9 - Gastro-esophageal reflux disease without esophagitis Category: Medical Plan Malaysian #declines She is still struggling with CIC, but she was unaware of what her Amitiza was for, and when she took it she was only taking it qd. I educate her and show her pictures of the pills and she confirms that she has it at home. She commits to taking it bid and we will get her back in 6 weeks to eval her response. She continues on her famotidine and pantoprazole and Amitiza 8mcg bid with cola ce. good control of her GERD. ROV 6 weeks. COLONOSCOPY 07/19/2024 BIOPSY TODAY'S VISIT Malaysian #declines She continues on her famotidine and pantoprazole and Amitiza 8mcg bid with colace. good control of her GERD. Now that she understands how to take the Amitiza her constipation is well controlled and she is feeling better. She still complains of a dry throat which could be multifactorial And her related to medications and age. For now she will keep her at meant after the colonoscopy. 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 Sister No problems noted. Social History Household Members: Children Household Members Other:: lives wirh son Housing: House Are you a primary home child care provider to a significant other at home: No Do you presently have visiting nurse or other home services: No Unable to assess alcohol history related to: Unknown Alcohol intake: former Patient Tobacco Use Status: Never used Tobacco service: No Current occupational status: retired and disabled Review of Systems Const Denies fatigue, Denies fever(s), Denies night sweats, Denies poor appetite and Denies weight loss ENT Details: Dry throat Reports Normal hearing present, Denies dental pain, Denies dysphagia, Reports dry mouth, Denies hearing loss, Denies mouth pain, Denies odynophagia, Denies throat swelling, Denies tongue swelling and Reports other (Dentition adequate) Card Reports no additional complaints Resp Reports no additional complaints GI Details: Denies abdominal pain, Denies melena, Reports bloating, Denies hematochezia, Reports constipation, Denies GI cramping, Denies dysphagia, Denies excessive flatus, Denies early satiety, Reports heartburn, Denies diarrhea, Denies nausea, Denies odynophagia, Denies vomiting and Denies hematemesis Skin/Breast Denies pruritus, Denies lesions, Denies rash and Denies jaundice Neuro Reports Normal hearing present and Denies Abnormal speech present Endo Denies fatigue Aller/Immun Denies throat swelling and Denies tongue swelling Physical Exam Vital Signs: Last Vital Signs Pulse 66 06/28/24 13:56 BP 170/74 H 06/28/24 13:56 BMI result Body Mass Index 27.4 Const General: cooperative, no acute distress, well developed and well groomed Nutritional Appearance: average body habitus and well nourished Orientation/consciousness: oriented to person, oriented to place and oriented to time Limitations: No language barrier HEENT Head: Yes normocephalic and Yes atraumatic Eyes General: appearance normal, both eyes and all related structures Pupils: Equal, round and reactive pupils present Neck Neck: Yes normal visual inspection and Yes no lymphadenopathy Thyroid: Thyroid normal Resp Effort & Inspection: normal respiratory effort and able to speak in complete sentences Auscultation: clear to auscultation bilaterally Cardio Rate: regular rate Rhythm: regular rhythm Heart sounds: Normal, physiologic split S2 sound present Peripheral pulses: radial pulses present and posterior tibial pulses present GI Inspection: No distended and No Abdominal panniculus present Palpation (GI): Soft to palpation, nontender, no guarding, not rigid and No hepatosplenomegaly present Percussion: Yes normal to percussion Auscultation: normal bowel sounds Rectal Exam - Female: deferred Skin General skin exam: no rashes or lesions noted, turgor normal, skin not dry, no jaundice, No spider nevi and no striae Rashes: no rashes Nails: normal Neuro General: oriented to person, oriented to place and oriented to time Cranial nerves: Yes Equal, round and reactive pupils present and Yes Normal hearing present Speech: No Abnormal speech present Extrem General: Yes normal to inspection, No clubbing, No cyanosis and No edema Psych Appearance: grossly normal and well kempt Mental Status: mental status grossly normal Speech and movement: Normal speech and movement present Affect: normal affect Attitude: cooperative Thought process: Normal thought process present and not confabulating Thought content: Normal thought content present Insight: Fair insight present (Psych) and Limited insight present (Psych) Judgement: Fair judgement present (Psych) and Limited judgement present (Psych) Assessment & Plan Assessment & Plan (1) Chronic idiopathic constipation: Code(s): K59.04 - Chronic idiopathic constipation Category: Medical (2) GERD (gastroesophageal reflux disease): Code(s): K21.9 - Gastro-esophageal reflux disease without esophagitis Category: Medical (3) Family history of colon cancer: Comment: scope 2019, negative, repeat 5 years 2023 Code(s): Z80.0 - Family history of malignant neoplasm of digestive organs Category: Medical (4) Abdominal bloating: Comment: Resolved with better bowel motility Code(s): R14.0 - Abdominal distension (gaseous) Category: Medical Plan [place] #declines She continues on her famotidine and pantoprazole and Amitiza 8mcg bid with colace. good control of her GERD. Now that she understands how to take the A mitiza her constipation is well controlled and she is feeling better. She still complains of a dry throat which could be multifactorial And her related to medications and age. For now she will keep her at meant after the colonoscopy. COLONOSCOPY 07/19/2024 BIOPSY Medications: New peg 3350-electrolytes 236-22.74-6.74 -5.86 gram (Golytely) until fecal effluent is clear; do not exceed a total volume of 2,000 mL 240 mL PO Q10M 4,000 mL 0RF 1 day Z12.11 - Encounter for screening for malignant neoplasm of colon Refilled lubiprostone (Amitiza) 8 mcg PO BID 60 caps 6RF docusate sodium 100 mg PO BID 60 caps 6RF pantoprazole 40 mg PO DAILY 90 tabs 2RF K21.9 - Gastro-esophageal reflux disease without esophagitis famotidine 40 mg PO BEDTIME 90 tabs 4RF K21.9 - Gastro-esophageal reflux disease without esophagitis bisacodyl (Dulcolax (bisacodyl)) 10 mg (2 x 5 mg) PO BEDTIME 4 tabs 0RF 2 days Discontinued polyethylene glycol 3350 Discontinued Reason: Doctor's Order 238 grams PO ONCE 1 day 238 grams 0RF colonoscopy prep Coding Level of Care Code Est Pt Level 3 (79260) Diagnoses Chronic idiopathic constipation K59.04 GERD (gastroesophageal reflux disease) K21.9 Family history of colon cancer Z80.0 Abdominal bloating R14.0
[2024-06-28 13:56] VITALS: BP 170/74; PULSE 66; BMI 27.4
== END 2024-06-28 14:51 | disposition home or self-care (01) ==
PROVIDERS: PCP Student in an Organized Health Care Education/Training Program; Visit Provider Nurse Practitioner
DX: K59.04 Chronic idiopathic constipation (principal); K21.9 Gastro-esophageal reflux disease without esophagitis; Z80.0 Family history of malignant neoplasm of digestive organs; R14.0 Abdominal distension (gaseous)
CPT/HCPCS: 99213

== ENCOUNTER → 2024-06-28 13:27 | Outpatient (BNVA) | payer OTHER, SELFPAY | PROVIDERS: PCP Student in an Organized Health Care Education/Training Program; Visit Provider Nurse Practitioner | DX: K59.04 Chronic idiopathic constipation (principal); K21.9 Gastro-esophageal reflux disease without esophagitis; R14.0 Abdominal distension (gaseous); Z80.0 Family history of malignant neoplasm of digestive organs | CPT/HCPCS: 99212 ==

== ENCOUNTER 2024-06-30 10:57 | Outpatient (AMB) | payer MEDICARE, SELFPAY ==
--- NOTE | 2024-06-30 10:51 | A.OFFVIS_ITS ---
Intake Visit Reasons: 1y/US Intake Note: Patient is present for 1Y/US Urology Medication:VITAMIN B12 Antibiotic Allergy:NONE Blood Thinner:NONE Stay Cutter Required: No Allergies iopamidol [From Isovue-M] Allergy (Mild, Verified 06/30/24 11:12) DEVELOPED THIGHTNESS IN THROAT Iodinated Contrast Media [CONTRAST, IV] Adverse Reaction (Intermediate, Verified 06/30/24 11:12) VOMITING HPI Comments Details: 06/30/24--Monica is a 73-year-old female who presents today to the office for a 1 year follow-up for microscopic hematuria. The patient is a former cigarette smoker 40 years ago. LV 07/02/2023-Workup included office cystoscopy-12/31/22-- Cystoscopy findings- No suspicious bladder lesions. Follow up renal US 05/02/24 discussed is within normal limits, b/L simple renal cysts. The patient has persistent microscopic hematuria, she is on meds for hypertension. Will refer to nephrology to complete workup for microscopic hematuria. Review of chart: 07/02/2023-- The patient is a former cigarette smoker 40 years ago, but states only smoked a few cigarettes a day for about a year or two. She presents today for follow-up of microscopic hematuria. She denies any irritative voiding symptoms. She admits that when she is not drinking adequate amount of water, her urine appears dark. She is unable to provide a urine specimen today. I reviewed prior evaluation; Kidney US done in 11/2022 revealed that there was bilateral simple ---12/31/22-- Cystoscopy findings-- mild trabeculations, mild inflammatory changes at the trigone. No suspicious bladder Will recheck renal US in one year. Follow-up in one year. If her symptoms are stable at that time, we will follow-up on PRN basis. Review of Testing: Renal US done on 11/25/22 which noted findings of bilateral simple cyst. Urine cytology done on 11/16/22 which was negative for malignancy. 12/31/22-- Office cystoscopy: Cystoscopy findings-- mild trabeculations, mild inflammatory changes at the trigone. No suspicious bladder. 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 Sister No problems noted. Social History Household Members: Children Housing: House Are you a primary critical care paramedic to a significant other at home: No Do you presently have visiting nurse or other home services: No Unable to assess alcohol history related to: Unknown Alcohol intake: former Patient Tobacco Use Status: Never used Tobacco service: No Current occupational status: retired and disabled Review of Systems Const All systems reviewed & are unremarkable except as noted in HPI and below Reports no additional complaints Eyes Reports no additional complaints ENT Reports no additional complaints Card Reports no additional complaints Resp Reports no additional complaints GI Reports no additional complaints Reports as per HPI Musc Reports no additional complaints Skin/Breast Reports system reviewed and no additional complaints, except as documented Neuro Reports no additional complaints Psych Reports no additional complaints Endo Reports no additional complaints Bobby/Lymph Reports no additional complaints Aller/Immun Reports no additional complaints Results AMB Urinalysis, Automated UA Leukoctes 70 Kael/uL Last Edit by MARIA ELENA Little on 06/30/24 11:26 UA Nitrite Negative Last Edit by MARIA ELENA Little on 06/30/24 11:26 UA Urobilinogen 3.5 mg/dL Last Edit by MARIA ELENA Little on 06/30/24 11:2 6 UA Protein 0 mg/dL Last Edit by MARIA ELENA Little on 06/30/24 11:26 UA pH 5.5 Last Edit by MARIA ELENA Little on 06/30/24 11:26 UA Blood 200 Thompson/uL Last Edit by MARIA ELENA Little on 06/30/24 11:26 UA Specific [place] 1.025 Last Edit by MARIA ELENA Little on 06/30/24 11: 26 UA Ketone Negative Last Edit by MARIA ELENA Little on 06/30/24 11:26 UA Bilirubin 0 mg/dL Last Edit by MARIA ELENA Little on 06/30/24 11:26 UA Glucose 0 mg/dL Last Edit by MARIA ELENA Little on 06/30/24 11:26 Results Reviewed Results Reviewed: Laboratory Last Values Urine pH (Auto) 5.5 06/30/24 11:25 Specific [place] (Auto) 1.025 06/30/24 11:25 Urine Protein (Auto) 0 mg/dL 06/30/24 11:25 Glucose (UA)(Auto) 0 mg/dL 06/30/24 11:25 Urine Ketones (Auto) Negative 06/30/24 11:25 Urine Blood (Auto) 200 Thompson/uL 06/30/24 11:25 Urine Nitrite (Auto) Negative 06/30/24 11:25 Urine Bilirubin (Auto) 0 mg/dL 06/30/24 11:25 Urine Urobilinogen (Auto) 3.5 mg/dL 06/30/24 11:25 Leukocyte Esterase (Auto) 70 Kael/uL 06/30/24 11:25 Date of Service: 05/02/24 US RETROPERITONEAL LIMITED (RENAL ONLY) CLINICAL INFORMATION: Other microscopic hematuria. COMPARISON: Renal ultrasound 11/25/2022. CT abdomen and pelvis 08/23/2015. TECHNIQUE: Real-time imaging of the kidneys. FINDINGS: RIGHT KIDNEY: 12.1 x 4.4 x 4.2 cm (SAG x AP x TRV). The kidney is normal in size, contour, and echogenicity. Renal cortical thickness is normal. No renal calculi or hydronephrosis. Simple appearing cyst in the interpolar kidney measuring 0.8 cm. LEFT KIDNEY: 11.1 x 4.5 x 4.2 cm (SAG x AP x TRV). The kidney is normal in size, contour, and echogenicity. Renal cortical thickness is normal. No renal calculi or hydronephrosis. Simple appearing cyst in the upper pole measuring 1.8 cm. IMPRESSION: No acute sonographic abnormalities. Simple-appearing bilateral cysts, for which no routine follow-up is recommended. Date of Service: 11/25/22 EXAMINATION: US RETROPERITONEAL LIMITED (RENAL ONLY) CLINICAL INFORMATION: Other microscopic hematuria. COMPARISON: CT abdomen and pelvis 08/23/2015. Renal ultrasound 02/27/2011. TECHNIQUE: Real-time imaging of the kidneys. FINDINGS: RIGHT KIDNEY: 13.3 x 4.3 x 5.9 cm (SAG x AP x TRV). The kidney is normal in size, contour, and echogenicity. Renal cortical thickness is normal. 6 x 6 x 8 mm cyst in the midpole. No imaging follow-up recommended. No renal calculi or hydronephrosis. LEFT KIDNEY: 11.7 x 5.5 x 4.7 cm (SAG x AP x TRV). The kidney is normal in size, contour, and echogenicity. Renal cortical thickness is normal. 2 cysts in the upper pole measuring 1.5 x 1.5 x 1.7 cm and 1 x 0.8 x 1 cm. No imaging follow-up recommended. No renal calculi or hydronephrosis. IMPRESSION: No cause of hematuria seen. Collected: 11/16/22 Received: 11/17/22 Diagnosis Urine:? Negative for high-grade urothelial carcinoma.? See comment. COMMENT: Cellular specimen consisting of single urothelial cells, squamous cells, few red blood cells and bacteria. Clinical History Microscopic hematuria Material Received Urine Gross Description 50 cc slightly cloudy yellow fluid Assessment & Plan Assessment & Plan (1) Microscopic hematuria: Code(s): R31.29 - Other microscopic hematuria Category: Medical (2) Simple renal cyst: Code(s): N28.1 - Cyst of kidney, acquired Category: Medical Plan Follow up renal US 05/02/24 discussed is within normal limits, b/L simple renal cysts. The patient has persistent microscopic hematuria, she is on meds for hypertension. Will refer to nephrology to complete workup for microscopic hematuria. Orders: Orders AMB Urinalysis Automated 06/30/24 Z13.9 - Encounter for screening, unspecified Patient Instructions: The patient had an opportunity to ask questions regarding treatment plan. The patient expressed understanding and agreement with the above treatment plan. The patient is aware they should contact our office by phone for worsening of their current condition or the appearance of new symptoms. Compliance is encoura ged with any medications and followup testing that is ordered. It is a privilege to be allowed the opportunity to participate in the urologic care of your patient. If you have any questions or concerns regarding treatment for the above conditions please do not hesitate to contact me. The office telephone contact is [phone]. This note is constructed in part using voice recognition software. While every effort has been made to ensure accuracy utility bill complaints investigator errors may have been included. Yours sincerely, Ritchie Isidro MD Coding Level of Care Code Est Pt Level 4 (56822) Diagnoses Microscopic hematuria R31.29 Simple renal cyst N28.1
== END 2024-06-30 11:52 | disposition home or self-care (01) ==
PROVIDERS: PCP Registered Nurse; Visit Provider Urology
DX: R31.29 Other microscopic hematuria (principal); N28.1 Cyst of kidney, acquired
CPT/HCPCS: 99214

== ENCOUNTER → 2024-06-30 10:57 | Outpatient (BNVA) | payer MEDICARE, SELFPAY | PROVIDERS: PCP Registered Nurse; Visit Provider Urology | DX: R31.29 Other microscopic hematuria (principal); N28.1 Cyst of kidney, acquired | CPT/HCPCS: 81003; 99212 ==

== ENCOUNTER 2024-07-19 10:14 | Day surgery (SDC) | payer MEDICARE, SELFPAY ==
--- NOTE | 2024-07-18 13:31 | HO.ANESPROP2 ---
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 Sister No problems noted. Surgical History Surgical History History of eye surgery History of lumpectomy of left breast (07/19/15) History of left breast biopsy (06/26/15) H/O: hysterectomy (01/30/97) History of cholecystectomy (~2006) History of esophagogastroduodenoscopy (EGD) (10/2010) Hx of colonoscopy (10/2010) Social History Social History Household Members: Children Housing: House Are you a primary hemodialysis patient care specialist to a significant other at home: No Do you presently have visiting nurse or other home services: No Unable to assess alcohol history related to: Unknown Alcohol intake: former Patient Tobacco Use Status: Never used Tobacco Advance Directives: No Advance Directives Information Provided: Yes service: No Current occupational status: retired and disabled Meds Allergies Allergy/AdvReac Type Severity Reaction Status Date / Time iopamidol [From Isovue-M] Allergy Mild DEVELOPED Verified 06/30/24 11:12 THIGHTNESS IN THROAT Iodinated Contrast Media AdvReac Intermediate VOMITING Verified 06/30/24 11:12 [CONTRAST, IV] Home Medications ?Medication ?Instructions ?Recorded ?Confirmed ?Last Taken ?Type atenolol 25 mg tablet 1 tab PO DAILY 07/23/20 02/14/2407/19/24 08:00 History hydrochlorothiazide 12.5 mg tablet 1 tab PO DAILY 07/23/20 02/14/24 Unknown History cyanocobalamin (vitamin B-12) 250 250 mcg PO DAILY 10/03/20 02/14/24 Unknown History mcg tablet lisinopril 20 mg tablet 20 mg PO DAILY 03/21/24 Unknown History Exam Pertinent Lab Results Pertinent Lab Results: Laboratory Tests 05/07/24 21:25 WBC 9.6 Hgb 14.3 Hct 39.8 Plt Count 185 Sodium 143 Potassium 3.6 Chloride 107 Carbon Dioxide 26 BUN 13 Creatinine 0.80 Narrative Narrative: EKG 04/2024 Vent. Rate : 068 BPM Atrial Rate : 068 BPM P-R Int : 166 ms QRS Dur : 068 ms QT Int : 406 ms P-R-T Axes : 051 002 008 degrees QTc Int : 431 ms Normal sinus rhythm Minimal voltage criteria for LVH, may be normal variant ( R in aVL ) Borderline ECG When compared with ECG of 01-SEP-2023 11:34, No significant change was found ECHO 2023 Conclusions: - 1. Normal LV ejection fraction 60 65% with impaired relaxation filling pattern 2. Calcific aortic and mitral valve changes noted with mild aortic and mitral regurgitation 3. Normal RV systolic pressure 4. 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 Sister No problems noted. Family history of problems with anesthesia: No Surgical History Surgical History History of eye surgery History of lumpectomy of left breast (07/19/15) History of left breast biopsy (06/26/15) H/O: hysterectomy (01/30/97) History of cholecystectomy (~2006) History of esophagogastroduodenoscopy (EGD) (10/2010) Hx of colonoscopy (10/2010) History of Problems with Anesthesia: No Social History Social History Household Members: Children Housing: House Are you a primary hemodialysis patient care specialist to a significant other at home: No Do you presently have visiting nurse or other home services: No Unable to assess alcohol history related to: Unknown Alcohol intake: former Patient Tobacco Use Status: Never used Tobacco Advance Directives: No Advance Directives Information Provided: Yes service: No Current occupational status: retired and disabled Meds Allergies Allergy/AdvReac Type Severity Reaction Status Date / Time iopamidol [From Isovue-M] Allergy Mild DEVELOPED Verified 06/30/24 11:12 THIGHTNESS IN THROAT Iodinated Contrast Media AdvReac Intermediate VOMITING Verified 06/30/24 11:12 [CONTRAST, IV] Home Medications ?Medication ?Instructions ?Recorded ?Confirmed ?Last Taken ?Type atenolol 25 mg tablet 1 tab PO DAILY 07/23/20 02/14/24 07/19/24 08:00 History hydrochlorothiazide 12.5 mg tablet 1 tab PO DAILY 07/23/20 02/14/24 Unknown History cyanocobalamin (vitamin B-12) 250 250 mcg PO DAILY 10/03/20 02/14/24 Unknown History mcg tablet lisinopril 20 mg tablet 20 mg PO DAILY 03/21/24 Unknown History Exam Airway Mallampati Class: II TM Dist: >3cm Neck ROM: Full Heart: rrr Lungs: cta Assessment and Plan Assessment Anesthesia Assessment: Anesthesia Plan Discussed Final Anesthetic Review Family History of Problems with Anesthesia: No History of Problems with Anesthesia: No NPO: Yes ASA Class: III Final Preanesthetic Review: No Changes in Pt Med Stat, Meds/Allgs Chart Reviewed, Consent Obtained/Reviewed and Anes Risks/Benef Reviewed Patient Risk: Intermediate Procedure Risk: Low Anesthetic Plan Anesthetic Plan: MAC: Disposition: Standard PACU
[2024-07-19 11:10] VITALS: BMI 26.2
[2024-07-19 11:15] VITALS: BP 136/73; PULSE 66; RESP 16; TEMP 36.6; O2SAT 97
[2024-07-19] MEDS: Lactated Ringers 1,000 ML 100 ML IVCONT (11:18)
--- NOTE | 2024-07-19 11:24 | P.HPSUR_ITS ---
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 ductal carcinoma of left breast, stage 3 Breast cancer, left Small bowel obstruction Anemia Hypertension Chronic idiopathic constipation GERD (gastroesophageal reflux disease)) History of Previous Operations: Relevant previous surgery/procedure and date(s) (History of eye surgery History of lumpectomy of left breast (07/19/15) History of left breast biopsy (06/26/15) H/O: hysterectomy (01/30/97) History of cholecystectomy (~2006) History of esophagogastroduodenoscopy (EGD) (10/2010) Hx of colonoscopy (10/2010)) Allergies: Allergies Allergy/AdvReac Type Severity Reaction Status Date / Time iopamidol [From Isovue-M] Allergy Mild DEVELOPED Verified 06/30/24 11:12 THIGHTNESS IN THROAT Iodinated Contrast Media AdvReac Intermediate VOMITING Verified 06/30/24 11:12 [CONTRAST, IV] Review of Systems Sugical H&P ROS: Negative: Constitution, Cardiovascular, Respiratory, Neurological, Psychiatric, Hem-Onc, Allergic/Immunologic, Gastrointestinal, Genitourinary, Musculoskeletal, Integumentary, Endocrine and Eyes/Ears/Nose/Throat Exam Surgical H&P Exam: Normal: HEENT, Normal: Heart, Normal: Lungs, Normal: Extremit ies, Normal: Abdomen, Normal: Skin and Normal: Neurological Plan Diagnosis/Plan: Unchanged I have reviewed the history and physical and performed a pertinent physical examination on my patient. No changes have occurred unless specified. Time Spent With Patient Time: Total time managing care of this patient today ____ minutes.
--- NOTE | 2024-07-19 12:10 | HO.OPN-COLON ---
Colonoscopy Operative Note Operative Note Date of Service: 07/19/24 Narrative: Operative Information Procedure Description: Colonoscopy Indication: screening Anesthesia: MAC COLONOSCOPY Instrument: Olympus variable stiffness pediatric scope 190L Colonoscopy Monitoring: Vital signs and clinical assessment, continuous EKG monitoring, Pulse oximetry, Carbon Dioxide monitoring and blood pressure monitoring were done throughout the procedure. Colon withdrawal time was 6 minutes. Procedure: The patient was placed in the left lateral decubitis position and pre-procedure medications were administered. After a digital rectal examination of the ano-rectum, the video colonoscope was inserted into the rectum and advanced through the colon to the cecum/TI. The colonoscope was slowly withdrawn in a retrograde panoramic fashion and the colon mucosa was carefully examined including a retroflexed view of the rectum. Findings and interventions are described below. Procedure Difficulty: easy Findings: Terminal Ileum-normal Cecum:normal Ascending Colon: 4-5 mm sessile polyp removed with cold forceps, x 1 7-8 mm sessile polyp removed with cold snare Transverse Colon -normal Descending Colon: x 2 sessile polyps 8-9 mm removed with cold snare Sigmoid Colon: normal Rectum: Retroflexion with small internal hemorrhoids seen, grade I Anorectum - normal Intervention: cold snare, cold forceps Colon preparation: [place] Bowel Preparation Scale Right colon; 2 Transverse colon: 2 Left colon; 2 (0 = Unprepared colon segment with mucosa not seen due to solid stool that cannot be cleared. 1 = Portion of mucosa of the colon segment seen, but other areas of the colon segment not well seen due to staining, residual stool and/or opaque liquid. 2 = Minor amount of residual staining, small fragments of stool and/or opaque liquid, but mucosa of colon segment seen well. 3 = Entire mucosa of colon segment seen well with no residual staining, small fragments of stool or opaque liquid) Impression and Post Procedure Diagnosis: colon polyps internal hemorrhoids Plan: High fiber diet leaflet Avoid straining at stool, epsom salts and sitz bath, anusol supps or cream Repeat Colonoscopy in 3 years or earlier if clinically indicated Above findings were reviewed with the patient and relevant handouts were provided if indicated.
[2024-07-19 12:16] VITALS: BP 90/33; PULSE 63; RESP 16; TEMP 36.1; O2SAT 97
[2024-07-19 12:31] VITALS: BP 112/51; PULSE 63; RESP 16; TEMP 36.4; O2SAT 97
== END 2024-07-19 13:04 | disposition home or self-care (01) ==
PROVIDERS: PCP Nurse Practitioner Family; Visit Provider Internal Medicine Gastroenterology
PROC: 0DJD8ZZ Inspection of Lower Intestinal Tract, Via Natural or Artificial Opening Endoscopic (ICD-10-PCS; CPT 45378; principal; 2024-07-19 12:00)
DX: Z12.11 Encounter for screening for malignant neoplasm of colon (principal); Z80.0 Family history of malignant neoplasm of digestive organs; D12.2 Benign neoplasm of ascending colon; D12.4 Benign neoplasm of descending colon; K62.1 Rectal polyp; K64.0 First degree hemorrhoids; K59.04 Chronic idiopathic constipation; K21.9 Gastro-esophageal reflux disease without esophagitis; Z85.3 Personal history of malignant neoplasm of breast; I10 Essential (primary) hypertension; D64.9 Anemia, unspecified; Z79.899 Other long term (current) drug therapy; Z91.041 Radiographic dye allergy status; Z98.890 Other specified postprocedural states
CPT/HCPCS: 45385; 45380; 88305; J2003; J2704

== ENCOUNTER → 2024-07-19 10:14 | Outpatient (BNV) | payer MEDICARE, SELFPAY | PROVIDERS: PCP Nurse Practitioner Family; Visit Provider Internal Medicine Gastroenterology | DX: Z12.11 Encounter for screening for malignant neoplasm of colon (principal); D12.2 Benign neoplasm of ascending colon; D12.4 Benign neoplasm of descending colon; K62.1 Rectal polyp; K64.0 First degree hemorrhoids | CPT/HCPCS: 45380; 45385 ==

== ENCOUNTER 2024-08-02 11:24 | Outpatient (AMB) | payer OTHER, SELFPAY ==
--- NOTE | 2024-08-02 11:35 | MHC.OFFVIS ---
Vital Signs 08/02/24 11:39 Height 5 ft 1.5 in Weight 145 lb 8.081 oz BMI 27.0 BP 155/80 H Blood Pressure Location Rt brachial Position Sitting Pulse 67 Intake Visit Reasons: s/p colon Intake Note: Patient in office today in follow up s/p colonoscopy. CC: Patient c/o constipation and only 2 BMs since after colonoscopy. Patient c/o dry throat and discomfort from stomach and esophagus and would like to have EGD done or PPI medications changed. Hydrostatic Tubing Tester Required: No Hydrostatic Tubing Tester Services: Hydrostatic Tubing Tester Offered & Declined Accompanied by: Self / Same As Patient Allergies iopamidol [From Isovue-M] Allergy (Mild, Verified 08/02/24 11:43) DEVELOPED THIGHTNESS IN THROAT Iodinated Contrast Media [CONTRAST, IV] Adverse Reaction (Intermediate, Verified 08/02/24 11:43) VOMITING HPI HPI s/p colon: Details: Assessment & Plan (1) Chronic idiopathic constipation: Code(s): K59.04 - Chronic idiopathic constipation Category: Medical (2) GERD (gastroesophageal reflux disease): Code(s): K21.9 - Gastro-esophageal reflux disease without esophagitis Category: Medical Plan Chinese #declines She is still struggling with CIC, but she was unaware of what her Amitiza was for, and when she took it she was only taking it qd. I educate her and show her pictures of the pills and she confirms that she has it at home. SHe commits to taking it bid and we will get her back in 6 weeks to eval her response. She continues on her Amitiza, famotidine and pantoprazole with good control of her GERD. She continues on her Amitiza, famotidine and pantoprazole with good control of her GERD. ROV 6 weeks. COLONOSCOPY 07/19/24 Findings: Terminal Ileum-normal Cecum:normal Ascending Colon: 4-5 mm sessile polyp removed with cold forceps, x 1 7-8 mm sessile polyp removed with cold snare Transverse Colon -normal Descending Colon: x 2 sessile polyps 8-9 mm removed with cold snare Sigmoid Colon: normal Rectum: Retroflexion with small internal hemorrhoids seen, grade I Anorectum - normal Intervention: cold snare, cold forceps Impression and Post Procedure Diagnosis: colon polyps internal hemorrhoids Plan: High fiber diet leaflet Avoid straining at stool, epsom salts and sitz bath, anusol supps or cream Repeat Colonoscopy in 3 years or earlier if clinically indicated BIOPSY Received: 07/19/24 Diagnosis A. Colon, ascending, polypectomies: Tubular adenomata; negative for high-grade dysplasia or carcinoma. B. Colon, descending, polypectomies: Tubular adenomata; negative for high-grade dysplasia or carcinoma. C. Rectum, polypectomy: Colonic mucosa with mild surface hyperplastic changes TODAY'S VISIT Chinese #declines She is agreeable to a 3 year recall. The procedure was well tolerated. The results were explained and the patient is agreeable to the follow-up interval as stated. The bowel pattern has returned to normal. Education was provided to tell any 1st degree relatives about their findings to be sure that they are screened by age 45. Educated that they will be put on a recall list when it is time for their repeat scope but should they move out of state or away from the hospital they will need to remember along with their primary to repeat the procedure in a timely fashion to avoid any adverse complications. She continues on her Amitiza, famotidine and pantoprazole. She tells me she has been having worsening trouble with acid brash and heartburn especially when she lays down and at times it wakes her up in the middle of the night. This is despite being adherent to her acid reducing therapy. However she also tells me that she did not move her bowels for a solid 8 days after the colonoscopy! Apparently ongoing constipation continues to be a problem despite taking Amitiza 8 mcg twice a day. This could very well explain why she continues to have trouble with her heartburn so will increase her to the 24 micro g dose twice a day and she can decrease this to once a day if it gives her diarrhea. We will titrate this to affect her side effect. We will also get a barium swallow to evaluate whether or not there is a hiatal hernia contributing to this. There are no other medication changes preceding this worsening of symptoms. Return office visit in 8 weeks to evaluate her response. 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 Sister No problems noted. Social History Household Members: Children Household Members Other:: lives wirh son Housing: House Are you a primary child care provider to a significant other at home: No Do you presently have visiting nurse or other home services: No Unable to assess alcohol history related to: Unknown Alcohol intake: former Patient Tobacco Use Status: Never used Tobacco service: No Current occupational status: retired and disabled Review of Systems Const Denies fatigue, Denies fever(s), Denies night sweats, Denies poor appetite and Denies weight loss ENT Reports Normal hearing present, Denies dental pain, Denies dysphagia, Denies hearing loss, Denies mouth pain, Denies odynophagia, Denies throat swelling, Denies tongue swelling and Reports other (Dentition adequate) Card Reports no additional complaints Resp Reports no additional complaints GI Details: Denies abdominal pain, Denies melena, Reports bloating, Denies hematochezia, Reports constipation, Denies GI cramping, Denies dysphagia, Denies excessive flatus, Denies early satiety, Reports heartburn, Denies diarrhea, Denies nausea, Denies odynophagia, Denies vomiting and Denies hematemesis Skin/Breast Denies pruritus, Denies lesions, Denies rash and Denies jaundice Neuro Reports Normal hearing present and Denies Abnormal speech present Endo Denies fatigue Aller/Immun Denies throat swelling and Denies tongue swelling Physical Exam Vital Signs: Last Vital Signs Pulse 67 08/02/24 11:39 BP 155/80 H 08/02/24 11:39 BMI result Body Mass Index 27.0 Const General: cooperative, no acute distress, well developed and well groomed Nutritional Appearance: average body habitus and well nourished Orientation/consciousness: oriented to person, oriented to place and oriented to time Limitations: No language barrier HEENT Head: Yes normocephalic and Yes atraumatic Eyes General: appearance normal, both eyes and all related structures Pupils: Equal, round and reactive pupils present Neck Neck: Yes normal visual inspection and Yes no lymphadenopathy Thyroid: Thyroid normal Resp Effort & Inspection: normal respiratory effort and able to speak in complete sentences Auscultation: clear to auscultation bilaterally Cardio Rate: regular rate Rhythm: regular rhythm Heart sounds: Normal, physiologic split S2 sound present Peripheral pulses: radial pulses present and posterior tibial pulses present GI Inspection: No distended and No Abdominal panniculus present Palpation (GI): Soft to palpation, nontender, no guarding, not rigid and No hepatosplenomegaly present Percussion: Yes normal to percussion Auscultation: normal bowel sounds Rectal Exam - Female: deferred Skin General skin exam: no rashes or lesions noted, turgor normal, skin not dry, no jaundice, No spider nevi and no striae Rashes: no rashes Nails: normal Neuro General: oriented to person, oriented to place and oriented to time Cranial nerves: Yes Equal, round and reactive pupils present and Yes Normal hearing present Speech: No Abnormal speech present Extrem General: Yes normal to inspection, No clubbing, No cyanosis and No edema Psych Appearance: grossly normal and well kempt Mental Status: mental status grossly normal Speech and movement: Normal speech and movement present Affect: normal affect Attitude: cooperative Thought process: Normal thought process present and not confabulating Thought content: Normal thought content present Insight: Limited insight present (Psych) Judgement: Limited judgement present (Psych) Assessment & Plan Assessment & Plan (1) Tubular adenoma of colon: Comment: 07/2024 scope= 3 TA's repeat in 3 years Code(s): D12.6 - Benign neoplasm of colon, unspecified Category: Medical (2) Chronic idiopathic constipation: Code(s): K59.04 - Chronic idiopathic constipation Category: Medical (3) GERD (gastroesophageal reflux disease): Code(s): K21.9 - Gastro-esophageal reflux disease without esophagitis Category: Medical Plan Chinese #declines She is agreeable to a 3 year recall. The procedure was well tolerated. The results were explained and the patient is agreeable to the follow-up interval as stated. The bowel pattern has returned to normal. Education was provided to tell any 1st degree relatives about their findings to be sure that they are screened by age 45. Educated that they will be put on a recall list when it is time for their repeat scope but should they move out of state or away from the hospital they will need to remember along with their primary to repeat the procedure in a timely fashion to avoid any adverse complications. She continues on her Amitiza, famotidine and pantoprazole. She tells me she has been having worsening trouble with acid brash and heartburn especially when she lays down and at times it wakes her up in the middle of the night. This is despite being adherent to her acid reducing therapy. However she also tells me that she did not move her bowels for a solid 8 days after the colonoscopy! Apparently ongoing constipation continues to be a problem despite taking Amitiza 8 mcg twice a day. This could very well explain why she continues to have trouble with her heartburn so will increase her to the 24 micro g dose twice a day and she can decrease this to once a day if it gives her diarrhea. We will titrate this to affect her side effect. We will also get a barium swallow to evaluate whether or not there is a hiatal hernia contributing to this. There are no other medication changes preceding this worsening of symptoms. Return office visit in 8 weeks to evaluate her response. Orders: Orders FL barium swallow Today K21.9 - Gastro-esophageal reflux disease without esophagitis Medications: New lubiprostone (Amitiza) 24 mcg PO BID 60 caps 6RF 30 days K59.04 - Chronic idiopathic constipation Refilled famotidine 40 mg PO BEDTIME 90 tabs 4RF K21.9 - Gastro-esophageal reflux disease without esophagitis docusate sodium 100 mg PO BID 60 caps 6RF pantoprazole 40 mg PO DAILY 90 tabs 2RF K21.9 - Gastro-esophageal reflux disease without esophagitis Discontinued lubiprostone (Amitiza) Discontinued Reason: Doctor's Order 8 mcg PO BID 60 caps 6RF bisacodyl (Dulcolax (bisacodyl)) Discontinued Reason: Doctor's Order 10 mg (2 x 5 mg) PO BEDTIME 2 days 4 tabs 0RF Coding Level of Care Code Est Pt Level 4 (84839) Diagnoses Tubular adenoma of colon D12.6 Chronic idiopathic constipation K59.04 GERD (gastroesophageal reflux disease) K21.9 Time Spent (min) 32
[2024-08-02 11:39] VITALS: BP 155/80; PULSE 67; BMI 27.0
== END 2024-08-02 12:07 | disposition home or self-care (01) ==
PROVIDERS: PCP Student in an Organized Health Care Education/Training Program; Visit Provider Nurse Practitioner
DX: D12.6 Benign neoplasm of colon, unspecified (principal); K59.04 Chronic idiopathic constipation; K21.9 Gastro-esophageal reflux disease without esophagitis
CPT/HCPCS: 99214

== ENCOUNTER → 2024-08-02 11:24 | Outpatient (BNVA) | payer OTHER, SELFPAY | PROVIDERS: PCP Student in an Organized Health Care Education/Training Program; Visit Provider Nurse Practitioner | DX: K59.04 Chronic idiopathic constipation (principal); K21.9 Gastro-esophageal reflux disease without esophagitis; D12.6 Benign neoplasm of colon, unspecified | CPT/HCPCS: 99212 ==

== ENCOUNTER 2024-10-24 08:32 | Outpatient (REF) | payer MEDICARE, SELFPAY ==
--- NOTE | ~2024-10-24 | FL_ITS ---
EXAMINATION: XR BARIUM SWALLOW CLINICAL INFORMATION: Gastroesophageal reflux disease. COMPARISON: None available. TECHNIQUE: Barium swallow was performed in upright view with thick barium and barium coated solids and cracker's. Thin barium was administered and prone lying position. FINDINGS: Oral administration of thick barium upright view there is normal propagation bolus from the oral cavity through the pharynx, esophagus into stomach without any evidence of obstruction, narrowing or stricture. On oral administration of solid food coated barium there is normal oral mastication with mild stagnation of solid food in the mid esophagus which suboptimally slowly. On following oral administration of water. No extrinsic compression of esophagus. On oral administration of thin barium in prone lying position there is good distention of esophagus without any intraluminal filling defect. Residual solid food administered during the upright view cleared very slowly with thin barium. No laryngeal penetration or aspiration seen. There is no gastroesophageal reflux seen except for a small hiatal hernia. There is evidence of previous cholecystectomy. FLUOROSCOPY TIME: 1 minute 40 seconds DOSE AREA PRODUCT: 1015 uGy-m2 (microgray-meter squared) FL/FL barium swallow IMPRESSION: Mild sluggish peristalsis in mid esophagus following oral administration of solid food coated with barium. Small hiatal hernia without any visible reflux Electronically signed by: Braden Bonilla MD 10/24/2024 11:58 AM EDT
== END 2024-10-24 08:33 | disposition home or self-care (01) ==
LOC: HO.XRAY 08:32
PROVIDERS: PCP Student in an Organized Health Care Education/Training Program; Visit Provider Nurse Practitioner
DX: K21.9 Gastro-esophageal reflux disease without esophagitis (principal)
CPT/HCPCS: 74220

== ENCOUNTER → 2024-10-24 08:34 | Outpatient (BNV) | payer MEDICARE, SELFPAY | PROVIDERS: PCP Student in an Organized Health Care Education/Training Program; Visit Provider Radiology Diagnostic Radiology | DX: K21.9 Gastro-esophageal reflux disease without esophagitis (principal) | CPT/HCPCS: 74221 ==

== ENCOUNTER → 2024-10-25 13:32 | Outpatient (BNV) | payer MEDICARE, SELFPAY | PROVIDERS: PCP Student in an Organized Health Care Education/Training Program; Visit Provider Radiology Diagnostic Radiology | DX: R26.89 Other abnormalities of gait and mobility (principal); I10 Essential (primary) hypertension; Z85.3 Personal history of malignant neoplasm of breast | CPT/HCPCS: 70553 ==

== ENCOUNTER 2024-10-25 13:33 | Outpatient (REF) | payer MEDICARE, SELFPAY ==
--- NOTE | ~2024-10-25 | MR_ITS ---
EXAMINATION: MR BRAIN WITHOUT AND WITH CONTRAST CLINICAL INFORMATION: History of breast CA in 2015, hypertension, gait deviating to right side. 74-year-old female. COMPARISON: No prior MRI. Correlation made with CT abdomen 05/05/2024. TECHNIQUE: Multiplanar, multisequence MRI of the brain was obtained before and after the intravenous administration of 6.5 mL Gadavist. Exam performed on a 1.5 Carolina Siemens high-field scanner. Standard sequences utilized. FINDINGS: There is no diffusion restriction. There is no intracranial hemorrhage, acute infarction, mass effect, or edema. Ventricles, sulci, and cisterns are mildly diffusely prominent, in keeping with age appropriate involutional changes. No asymmetric pattern of atrophy. No shift of midline. No abnormal hemosiderin deposition is identified. There are a several scattered punctate and minimally confluent foci of white matter T2 hyperintensity in the periventricular, subcortical, and hemispheric deep white matter, and central and right sneha. These findings are nonspecific, but are most likely on the basis of mild to moderate small vessel ischemic changes. Tiny old lacunar type infarcts right external capsule, right anterior henning radiata, and right thalamus pulvinar nucleus. After contrast administration, there is no abnormal intra or extra-axial enhancement. Normal enhancement of the major cortical and dural venous sinuses. Midline structures appear normally formed. The pituitary gland appears normal. Posterior fossa structures appear normal. Cerebellar tonsils are appropriately located. Major flow voids are preserved within the skull base. The globes and orbital contents demonstrate lens replacements. 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 Paranasal sinuses are clear bilaterally. Nasal septum is midline without spur. The mastoids and tympanic cavities are normally aerated. Extracranial soft tissues demonstrate no abnormalities. No suspicious bone marrow changes are evident. There is mild hyperostosis frontalis. Mild degenerative changes in both TM joints. Atlantoaxial joint is normal. MR/MR head/brain wo/w con IMPRESSION: 1. No evidence of intracranial hemorrhage, acute infarction, mass effect, edema, or abnormal enhancement. No evidence of metastatic disease. 2. Age-appropriate involutional changes, with mild to moderate changes of small vessel ischemia. 3. 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 4. Additional ancillary findings as discussed in the body of the report. Electronically signed by: Celso Barth MD 10/26/2024 08:47 AM EDT
[2024-10-25] MEDS: gadobutroL 7.5 ML VIAL IVPUSH (14:20)
--- OUTSIDE RECORDS SUMMARY | 2024-10-25 15:59 | XMS_ITS | Encounter Summary ---
Author Organization [employer] Address [address] [facility] [address] [place] [address] Care Team Providers Care Wheel Mill Operator Name Role Phone Aurelia Steiner NP Primary Care Provider [phone] Reason for Visit * Reason Comments Med Refill Encounter Details Date Type Department Care Team ([facility] st Contact Info) Description 07/16/[address] [facility] MEDICINE [address] [place] [address] Aurelia Steiner NP [address] [place] [address] Social History Tobacco Use Types Packs/Day Years Used Date Smoking Tobacco: Former Cigarettes Depression Answer Date Recorded Patient Health Questionnaire-9 Score 0 09/17/2023 Patient Health Questionnaire-9 Score 0 09/17/2023 Last PHQ-9: Questionnaire Data Not on file 0 09/17/2023 Housing Stability Answer Date Recorded What is your housing situation today? I have geetha payton 09/17/[address] you li ve. Do you have problems with any of the following? None of the above 09/17/2023 Food Insecurity Answer Date Recorded Within the past 12 months, y ou worried that your food would run out before you got money to buy more: Never True 09/17/2023 Within the past 12 months,th e food you bought just didn't last and you didn't have enough money to get more: Never True 09/2023 Transportation Answer Date Recorded In the past 12 months, has l ack of transportation kept you from medical appts, meetings, work or from getting things needed for daily living? No 09/17/2023 Utilities Answer Date Recorded In the past 12 months, has t he electric, gas, oil or water [employer] threatened to shut off services in your home? No 09/17/2023 Depression Answer Date Recorded Patient Health Questionnaire-2 Score 0 09/17/2023 Comments No Sex and Gender Information Value Date Recorded Sex Assigned at Female 06/15/2022 10:21 AM EDT Legal Sex Female 10:21 AM EDT Gender Identity Choose not to disclose 10:21 AM EDT Sexual Orientation Choose not to disclose 2021 10:21 AM EDT documented as of this encounter Plan of Treatment Not on file documented as of this encounter Visit Diagnoses Not on filedocumented in this encounter Additional Health Concerns Assessment Noted Time PHQ-9 Depression Total Score: 0 09/17/19 24 1:14 PM EST documented as of this encounter Care Teams Wheel Mill Operator Relationship Specialty Start Date End Date Aurelia Steiner NP [address] [place] [address] PCP - General Family Medicine 09/17/23 documented as of this encounter
--- OUTSIDE RECORDS SUMMARY | 2024-10-25 15:59 | XMS_ITS | Encounter Summary ---
Author Organization [employer] Address [address] [facility] [address] [place] [address] Care Team Providers Care Pan Shaker Name Role Phone Aurelia Steiner NP Primary Care Provider Reason for Visit * Reason Comments Med Refill Encounter Details Date Type Department Care Team ([facility] st Contact Info) Description 06/10/2024 Refill [facility] MEDICINE [address] [place] [address] Aurelia Steiner NP [address] [place] [address] Social History Tobacco Use Types Packs/Day Years [...] t he electric, gas, oil or water [employer] threatened to shut off services in your [...] documented as of this encounter Care Teams Pan Shaker Relationship Specialty Start Date End Date Aurelia Steiner NP [address] [place] [address] PCP - General Family Medicine 09/17/23 documented as of this encounter
--- OUTSIDE RECORDS SUMMARY | 2024-10-25 15:59 | XMS_ITS | Encounter Summary ---
Author Organization [employer] Address [address] [facility] [address] [place] [address] Care Team Providers Care Color Weigher Name Role Phone Aurelia Steinre RIKKI Primary Care Provider Reason for Visit * Reason Onset Date Comments new order for echo 10/18/2024 Encounter Details Date Type Department Care Team (Late st Contact Info) Description 10/18/2024 Telephone [facility] MEDICINE [address] [place] [address] Krys Caldwell MA new order for echo Social History Tobacco Use Types Packs/Day Years Used Date Smoking Tobacco: Former Cigarettes Depression Answer Date Recorded Patient Health Questionnaire-9 Score 3 10/17/2024 Patient Health Questionnaire-9 Score 3 10/17/2024 Last PHQ-9: Questionnaire Data Not on file 0 10/17/2024 Housing Stability Answer Date Recorded What is your housing situation today? I have geetha payton 10/17/[address] you li ve. Do you have problems with any of the following? None of the above 10/17/2024 Food Insecurity Answer Date Recorded Within the past 12 months, y ou worried that your food would run out before you got money to buy more: Never True 10/17/2024 Within the past 12 months,th e food you bought just didn't last and you didn't have enough money to get more: Never True 11/2024 Transportation Answer Date Recorded In the past 12 months, has l ack of transportation kept you from medical appts, meetings, work or from getting things needed for daily living? No 10/17/2024 Utilities Answer Date Recorded In the past 12 months, has t he electric, gas, oil or water company threatened to shut off services in your home? No 10/17/2024 Depression Answer Date Recorded Patient Health Questionnaire-2 Score 2 10/17/2024 Internet Access Answer Date Recorded Internet Access Q1 No 10/17/2024 Internet Access Q2 I do not want or need it 11/2024 Comments No Sex and Gender Information Value Date Recorded Sex Assigned at Female 06/15/2022 10:21 AM EDT Legal Sex Female 10:21 AM EDT Gender Identity Choose not to disclose 10:21 AM EDT Sexual Orientation Choose not to disclose 2021 10:21 AM EDT documented as of this encounter Miscellaneous Notes * Telephone Encounter - Krys Caldwell MA - 10/18/2024 1:30 PM EST Let Pt know theres a new order for echo and they will be calling her to schedule the appointment. Pt understood. * Telephone Encounter - Krys Caldwell MA - 10/18/2024 1:29 PM EST ----- Message from Aurelia Steiner sent at 10/17/2024 4:33 PM EST ----- Can we please see if pt ever had echo ordered in [facility] 01/06? Thank you documented in this encounter Plan of Treatment Not on file documented as of this encounter Visit Diagnoses Not on filedocumented in this encounter Additional Health Concerns Assessment Noted Time PHQ-9 Depression Total Score: 3 10/18/19 25 2:25 PM EST documented as of this encounter Care Teams Color Weigher Relationship Specialty Start Date End Date Aurelia Steiner NP [address] [place] [address] PCP - General Family Medicine 09/17/23 documented as of this encounter
--- OUTSIDE RECORDS SUMMARY | 2024-10-25 15:59 | XMS_ITS | Encounter Summary ---
Author Organization [employer] Address [address] [place] [address] Care Team Providers Care Ticker Maintainer Name Role Phone Janel Kat MD Primary Care Pro vider Aurelia Steiner NP Primary Care Provider [phone] Reason for Visit * Reason Onset Date Comments ER Follow-up 09/10/2023 Encounter Details Date Type Department Care Team (Late st Contact Info) Description 09/10/2023 Telephone [facility] MEDICINE [address] [place] [address] Janel Kat MD [address] [place] [address] ER Follow-up Social History Tobacco Use Types Packs/Day Years Used Date Smoking Tobacco: Never Assessed Comments Unknown Sex and Gender Information Value Date Recorded Sex Assigned at Female 06/15/2022 10:21 AM EDT Legal Sex Female 10:21 AM EDT Gender Identity Choose not to disclose 10:21 AM EDT Sexual Orientation Choose not to disclose 2021 10:21 AM EDT documented as of this encounter Miscellaneous Notes * Telephone Encounter - Alejandra Massey - 09/13/2023 9:57 AM EST Tc from pt in regards below. * Telephone Encounter - Monroe Valdes - 09/10/2023 9:26 AM EST Patient calling to report ED visit on : Date: 09/01 Hospital: [facility] Seen for: Fell down a flight of stairs Patient advised will forward to team nurse for follow up documented in this encounter Plan of Treatment Not on file documented as of this encounter Visit Diagnoses Not on filedocumented in this encounter Care Teams Ticker Maintainer Relationship Specialty Start Date End Date Janel Kat MD [address] [place] [address] PCP - General Internal Medicine 02/17/23 09/16/23 Aurelia Steiner NP [address] [place] [address] PCP - General Family Medicine 09/17/23 documented as of this encounter
--- OUTSIDE RECORDS SUMMARY | 2024-10-25 15:59 | XMS_ITS | Encounter Summary ---
Author Organization [employer] Address [address] [facility] [address] [place] [address] Care Team Providers Care Coat Presser Name Role Phone Janel Kat MD Primary Care Pro vider Aurelia Steiner NP Primary Care Provider [phone] Encounter Details Date Type Department Care Team (Late st Contact Info) Description 07/16/2023 Orders Only [facility] [address] [place], [place] [id number] Myah Millan LPN Social History Tobacco Use Types Packs/Day Years [...] on filedocumented in this encounter Care Teams Coat Presser Relationship Specialty Start Date End Date Janel Kat MD [address] [place] [address] PCP - General Internal Medicine 02/17/23 09/16/23 Aurelia Steiner NP [address] [place], [place] [id number] PCP - General Family Medicine 09/17/23 documented as of this encounter
--- OUTSIDE RECORDS SUMMARY | 2024-10-25 15:59 | XMS_ITS | Encounter Summary ---
Author Organization [employer] Address [address] [facility] [address] [place] [address] Care Team Providers Care Banana Handler Name Role Phone Aurelia Steiner NP Primary Care Provider [phone] Reason for Visit * Reason Comments Med Refill Encounter Details Date Type Department Care Team ([facility] st Contact Info) Description 10/23/2024 Refill [facility] MEDICINE [address] [place] [address] Aurelia Steiner NP [address] [place] [address] Social History Tobacco Use Types Packs/Day Years Used Date Smoking Tobacco: Former Cigarettes Depression Answer Date Recorded Patient Health Questionnaire-9 Score 3 10/17/2024 Patient Health Questionnaire-9 Score 3 10/17/2024 Last PHQ-9: Questionnaire Data Not on file 0 10/17/2024 Housing Stability Answer Date Recorded What is your housing situation today? I have geetha patyon 10/17/[address] you li [...] documented as of this encounter Care Teams Banana Handler Relationship Specialty Start Date End Date Aurelia Steiner NP [address] [place] [address] PCP - General Family Medicine 09/17/23 documented as of this encounter
--- OUTSIDE RECORDS SUMMARY | 2024-10-25 15:59 | XMS_ITS | Encounter Summary ---
Author Organization [employer] Address [address] [facility] [address] [place] [address] Care Team Providers Care City Constable Name Role Phone Aurelia Steiner NP Primary Care Provider [phone] Reason for Visit * Reason Onset Date Comments Reschedule 11/08/2023 Encounter Details Date Type Department Care Team (Late st Contact Info) Description 11/08/2023 Telephone [facility] MEDICINE [address] [place] [address] Aurelia Steiner NP [address] [place] [address] Reschedule Social History Tobacco Use Types Packs/Day Years Used Date Smoking Tobacco: Former Cigarettes Depression Answer Date Recorded Patient Health Questionnaire-9 Score 0 09/17/2023 Patient Health Questionnaire-9 Score 0 09/17/2023 Last PHQ-9: Questionnaire Data Not on file 0 09/17/2023 Housing Stability Answer Date Recorded What is your housing situation today? I have geetha paytno 09/17/[address] you li [...] Patient Health Questionnaire-2 Score 0 09/17/2023 Comments Unknown Sex and Gender Information Value Date Recorded Sex Assigned at Female 06/15/2022 10:21 AM EDT Legal Sex Female 10:21 AM EDT Gender Identity Choose not to disclose 10:21 AM EDT Sexual Orientation Choose not to disclose 2021 10:21 AM EDT documented as of this encounter Miscellaneous Notes * Telephone Encounter - Alejandra Massey - 11/08/2023 10:32 AM EDT Tc from pt requesting r/s TP appt documented in this encounter Plan of Treatment Not on file documented as of this encounter Visit Diagnoses Not on filedocumented in this encounter Additional Health Concerns Assessment Noted Time PHQ-9 Depression Total Score: 0 09/17/19 24 1:14 PM EST documented as of this encounter Care Teams City Constable Relationship Specialty Start Date End Date Aurelia Steiner NP [address] [place] [address] PCP - General Family Medicine 09/17/23 documented as of this encounter
--- OUTSIDE RECORDS SUMMARY | 2024-10-25 15:59 | XMS_ITS | Encounter Summary ---
Author Organization [employer] Address [address] [facility] [address] [place] [address] Care Team Providers Care Well Blower Name Role Phone Aurelia Steiner RIKKI Primary Care Provider [phone] Encounter Details Date Type Department Care Team (Latest Contact Info) Description 10/17/2024 Travel Social History Tobacco Use Types Packs/Day Years Used Date Smoking Tobacco: Former Cigarettes Depression Answer Date Recorded Patient Health Questionnaire-9 Score 3 10/17/2024 Patient Health Questionnaire-9 Score 3 10/17/2024 Last PHQ-9: Questionnaire Data Not on file 0 10/17/2024 Housing Stability Answer Date Recorded What is your housing situation today? I have geethamariela payton 10/17/[address] you [...] documented as of this encounter Care Teams Well Blower Relationship Specialty Start Date End Date Aurelia Steiner NP [address] [place] [address] PCP - General Family Medicine 09/17/23 documented as of this encounter
--- OUTSIDE RECORDS SUMMARY | 2024-10-25 15:59 | XMS_ITS | Encounter Summary ---
Author Organization [employer] Address [address] [facility] [address] [place] [address] Care Team Providers Care Gas Appliance Mechanic Name Role Phone Aurelia Steiner NP Primary Care Provider [phone] Reason for Visit * Reason Comments Pre-visit Planning SDOH unable to reach LVM Encounter Details Date Type Department Care Team ([facility] st Contact Info) Description 10/06/2024 Patient Outreach [facility] MED & PEDS [address] [place] [address] Aurelia Steiner NP [address] [facility] [place] [address] Pre-visit Planning (SDOH unable to reach LVM ) Social History Tobacco Use Types Packs/Day Years [...] AM EDT documented as of this encounter Progress Notes * Izabella Huddleston - 10/06/2024 4:30 PM EST ROBERTA Vera placed outbound call to patient to complete pre-visit planning. No answer at this time. Patient name and were not confirmed. CC left voicemail requesting return call. Direct contactinformation provided. documented in this encounter Plan of Treatment Not on file documented as of this encounter Visit Diagnoses Not on filedocumented in this encounter Additional Health Concerns Assessment Noted Time PHQ-9 Depression Total Score: 0 09/17/19 1:14 PM EST documented as of this encounter Care Teams Gas Appliance Mechanic Relationship Specialty Start Date End Date Aurelia Steiner NP [address] [place] [address] PCP - General Family Medicine 09/17/23 documented as of this encounter
--- OUTSIDE RECORDS SUMMARY | 2024-10-25 15:59 | XMS_ITS | Encounter Summary ---
Author Organization [employer] Address [address] [facility] [address] [place] [address] Care Team Providers Care Pizza Maker Name Role Phone Aurelia Steiner RIKKI Primary Care Provider [phone] Reason for Visit * Reason Onset Date Comments Chart Prep 10/10/2024 Encounter Details Date Type Department Care Team (Late st Contact Info) Description 10/10/2024 Telephone [facility] MEDICINE [address] [place] [address] Krys Caldwell MA Chart Prep Social History Tobacco Use Types Packs/Day Years [...] Telephone Encounter - Krys Caldwell MA - 10/10/2024 10:33 AM EST Chart Prep Labs: done Images: not done Vaccines due: Covid, RSV Referrals: Radiology Order rejected by [facility] Nodule is not big enough for a biopsy. Sara RN is aware Screenings: colonoscopy Hep C Overdue care gaps: SDOH, PHQ-9 documented in this encounter Plan of Treatment Not on file documented as of this encounter Visit Diagnoses Not on filedocumented in this encounter Additional Health Concerns Assessment Noted Time PHQ-9 Depression Total Score: 0 09/17/19 1:14 PM EST documented as of this encounter Care Teams Pizza Maker Relationship Specialty Start Date End Date Aurelia Steiner NP [address] [place] [address] PCP - General Family Medicine 09/17/23 documented as of this encounter
--- OUTSIDE RECORDS SUMMARY | 2024-10-25 15:59 | XMS_ITS | Encounter Summary ---
Author Organization [employer] Address [address] [facility] [address] [place] [address] Care Team Providers Care Oil Burner Servicer And Installer Name Role Phone Janel Kat MD Primary Care Pro vider Aurelia Steiner NP Primary Care Provider [phone] Reason for Visit * Reason Onset Date Comments Nurse Triage 09/16/2023 Encounter Details Date Type Department Care Team (Late st Contact Info) Description 09/16/2023 Telephone [facility] MEDICINE [address] [place] [address] Janel Kat MD [address] [place] [address] Nurse Triage Social History Tobacco Use Types Packs/Day Years Used Date Smoking Tobacco: Never Assessed Depression Answer Date Recorded Patient Health Questionnaire-9 [...] encounter Miscellaneous Notes * Telephone Encounter - Maribel García RN - 09/16/2023 9:15 AM EST Please assist with obtaining ER notes from [facility] visit on 09/01/23 following fall. Pt has appt 09/17/23 at 1pm with Aurelia QIU. * Telephone Encounter - Maribel García RN - 09/16/2023 9:08 AM EST Call to deep Brooks seen at [facility] 09/01/23 following a fall from stairs. Per pt had back pain and left leg pain. Per pt had x-ray of back and hip and no fractures. Per pt was given rx for pain relief. Pt denies any redness, bruising or swelling of leg. Per pt having pain with weight bearingon thigh. No meds taken for pain. Pt state has had this pain in past. Pt advised of dispsoition, agrees to visit tomorrow with Blue team provider . Reviewed home care advise and reasons to call back. Protocol Used: Leg Pain (Adult) Protocol-Based Disposition: See in Office or Video Visit within 3 Days Future Appointments Date Time Provider Department Center 09/17/2023 1:00 PM Aurelia Steiner NP MEDICINE [facility] Video visit offer not recorded Positive Triage Question: * Moderate pain (e.g., interferes with normal activities, limping) and present > 3 days * All higher-acuity triage questions were negative Care Advice Discussed: * Reassurance and Education - Leg Pain * Pain Medicines * Reasons To Call Back - Signs of infection occur (e.g., spreading redness, warmth, fever) - You become worse * Telephone Encounter - Alicia Gopi - 09/16/2023 8:58 AM EST Symptom: Leg Pain - Not From Injury Outcome: Schedule an urgent appointment (within 1 hour) or talk to a nurse or provider soon Reason: Severe pain now, pt was seen at [facility] on 09/01 for falling down the stairs The caller accepted this outcome Please contact pt at [phone] documented in this encounter Plan of Treatment Not on file documented as of this encounter Visit Diagnoses Not on filedocumented in this encounter Care Teams Oil Burner Servicer And Installer Relationship Specialty Start Date End Date Janel Kat MD [address] [place] [address] PCP - General Internal Medicine 02/17/23 09/16/23 Aurelia Steiner NP [address] [place] [address] PCP - General Family Medicine 09/17/23 documented as of this encounter
--- OUTSIDE RECORDS SUMMARY | 2024-10-25 15:59 | XMS_ITS | Encounter Summary ---
Author Organization [employer] Address [address] [facility] [address] [place] [address] Care Team Providers Care Director Of Learning Name Role Phone Aurelia Steiner NP Primary Care Provider [phone] Reason for Referral * Imaging (Routine) - Pending Review Specialty Diagnoses / Procedures Referred By Lauren hampton Referred To Contact Cardiology Diagnoses Murmur Procedures Transthoracic Echo (TTE) Complete Aurelia Steiner NP [address] [place] [address] Phone: tel: fax: [address] Phone: tel: fax: Referral ID Status Reason Start Date Expiration Date Visits Requested Visits Authorized [id number] Pending Review Perform Procedure 10/18/2024 10/18/2025 1 1 Encounter Details Date Type Department Care Team (Late st Contact Info) Description 10/18/2024 Orders Only [facility] MEDICINE [address] [place] [address] Aurelia Steiner NP [address] [place] [address] Murmur (Primary Dx) Social History Tobacco Use Types Packs/Day Years [...] as of this encounter Plan of Treatment Scheduled Orders Name Type Priority Associated Diagnoses Order Schedule Transthoracic Echo (TTE) Complete Echocardiography Routine Murmur Expected: 10/18/2024 (Approximate), Expires: 10/18/2026 documented as of this encounter Procedures Procedure Name Priority Date/Time Associated Diagnosis Comments FL ESOPHAGUS BARIUM SWALLOW Routine 10/24/2024 8:34 AM EDT documented in this encounter Results * FL Esophagus Barium Swallow (10/24/2024 8:34 AM EDT) Anatomical Region Laterality Modality Head, Neck Radiographic [place] ging 10/24/2024 8:34 AM EDT Narrative 10/24/2024 12:01 PM EDT ? [facility] ?[address] ?[place] [address] ? Fluoroscopy Report ? Signed ? Patient: Suarez,Monica ?MR#: [id number] ?? 3 ? : 1950 ?Acct:[id number] ? Age/Sex: 74 / F ?ADM Date: 10/24/24 ? Loc: HO.XRAY ? Attending Dr: Samantha WILLETT ? Ordering Physician: Samantha Tran ?? Date of Service: 10/24/24 ?? Procedure(s): FL barium swallow ?? Accession Number(s): [id number] ? cc: Samantha Tran; Janel Kat MD ? EXAMINATION: ?? XR BARIUM SWALLOW ? CLINICAL INFORMATION: ?? Gastroesophageal reflux disease. ? COMPARISON: ?? None available. ? TECHNIQUE: ?? Barium swallow was performed in upright view with thick barium and ?? barium coated solids and cracker's. Thin barium was administered and ?? prone lying position. ? FINDINGS: ?? Oral administration of thick barium upright view there is normal ?? propagation bolus from the oral cavity through the pharynx, esophagus ?? into stomach without any evidence of obstruction, narrowing or ?? stricture. On oral administration of solid food coated barium there is ?? normal oral mastication with mild stagnation of solid food in the mid ?? esophagus which suboptimally slowly. On following oral administration ?? of water. No extrinsic compression of esophagus. ? On oral administration of thin barium in prone lying position there is ?? good distention of esophagus without any intraluminal filling defect. ?? Residual solid food administered during the upright view cleared very ?? slowly with thin barium. No laryngeal penetration or aspiration seen. ?? There is no gastroesophageal reflux seen except for a small hiatal ?? hernia. There is evidence of previous cholecystectomy. ? FLUOROSCOPY TIME: ?? 1 minute 40 seconds ? DOSE AREA PRODUCT: ?? 1015 uGy-m2 (microgray-meter squared) ? FL/FL barium swallow ?? IMPRESSION: ?? Mild sluggish peristalsis in mid esophagus following oral ?? administration of solid food coated with barium. ? Small hiatal hernia without any visible reflux ? Electronically signed by: ??Braden Bonilla MD ??10/24/2024 11:58 AM EDT RP ? Dictated By: ?Irene,Braden S MD ? Signed By: ?<Electronically signed by Braden S Irene, in OV> ?10/24/24 1158 ? DD/ 0834 ? TD/TT: 10/24/24 0908 ? Educational Guidance Counselor: EMERSON ? Procedure Note Donotuseinterpreter, Image - 10/24/[address] [address] Fluoroscopy Report Signed Patient: Florian Suarez#: [id number] 3 : 1950cct:[id number] Age/Sex: 74 / FADM Date: 10/24/24 Loc: [facility] Attending Dr: Samantha WILLETT Ordering Physician: Samantha Tran Date of Service: 10/24/24 Procedure(s): FL barium swallow Accession Number(s): [id number] cc: Samantha Tran; Janel Kat MD EXAMINATION: XR BARIUM SWALLOW CLINICAL INFORMATION: Gastroesophageal reflux disease. COMPARISON: None available. TECHNIQUE: Barium swallow was performed in upright view with thick barium and barium coated solids and cracker's. Thin barium was administered and prone lying position. FINDINGS: Oral administration of thick barium upright view there is normal propagation bolus from the oral cavity through the pharynx, esophagus into stomach without any evidence of obstruction, narrowing or stricture. On oral administration of solid food coated barium there is normal oral mastication with mild stagnation of solid food in the mid esophagus which suboptimally slowly. On following oral administration of water. No extrinsic compression of esophagus. On oral administration of thin barium in prone lying position there is good distention of esophagus without any intraluminal filling defect. Residual solid food administered during the upright view cleared very slowly with thin barium. No laryngeal penetration or aspiration seen. There is no gastroesophageal reflux seen except for a small hiatal hernia. There is evidence of previous cholecystectomy. FLUOROSCOPY TIME: 1 minute 40 seconds DOSE AREA PRODUCT: 1015 uGy-m2 (microgray-meter squared) FL/FL barium swallow IMPRESSION: Mild sluggish peristalsis in mid esophagus following oral administration of solid food coated with barium. Small hiatal hernia without any visible reflux Electronically signed by: Braden Bonilla MD 10/24/2024 11:58 AM EDT RP Dictated By: Braden Bonilla MD Signed By: <Electronically signed by Braden Bonilla MD in OV> 10/24/24 1158 DD/ 0834 TD/TT: 10/24/24 0908 Educational Guidance Counselor: EMERSON [facility] External Provider IMG FLU OROSCOPY PROCEDURES Final Result documented in this encounter Visit Diagnoses Diagnosis Murmur- Primary Undiagnosed cardiac murmurs documented in this encounter Additional Health Concerns Assessment Noted Time PHQ-9 Depression Total Score: 3 10/18/19 25 2:25 PM EST documented as of this encounter Care Teams Director Of Learning Relationship Specialty Start Date End Date Aurelia Steiner NP [address] [place] [address] PCP - General Family Medicine 09/17/23 documented as of this encounter
--- OUTSIDE RECORDS SUMMARY | 2024-10-25 15:59 | XMS_ITS | Encounter Summary ---
Author Organization [employer] Address [address] [place] [address] [address] [place] [address] Care Team Providers Care Fish Bin Tender Name Role Phone Janel Kat MD Primary Care Pro vider Aurelia Steiner NP Primary Care Provider Reason for Visit * Reason Onset Date Comments Appointment Request 09/07/2023 Encounter Details Date Type Department Care Team (Late st Contact Info) Description 09/07/2023 Telephone [facility] MEDICINE [address] [place] [address] Janel Kat MD [address] [place] [address] Appointment Request Social History Tobacco Use Types Packs/Day Years [...] encounter Miscellaneous Notes * Telephone Encounter - Monroe Valdes - 09/07/2023 2:10 PM EST Tc from patient requesting a follow up appt with provider however Dr. Knowles is no longer a provider and patient needs a TP appt to be seen by new provider Dr. Chan documented in this encounter Plan of Treatment Not on file documented as of this encounter Visit Diagnoses Not on filedocumented in this encounter Care Teams Fish Bin Tender Relationship Specialty Start Date End Date Janel Kat MD [address] [place] [address] PCP - General Internal Medicine 02/17/23 09/16/23 Aurelia Steiner NP [address] [place] [address] PCP - General Family Medicine 09/17/23 documented as of this encounter
--- OUTSIDE RECORDS SUMMARY | 2024-10-25 15:59 | XMS_ITS | Encounter Summary ---
Author Organization [employer] Address [address] [facility] [address] [place] [address] Care Team Providers Care Medical Field Representative Name Role Phone Aurelia Steiner NP Primary Care Provider [phone] Reason for Referral * Imaging (Routine) - Closed Specialty Diagnoses / Procedures Referred By Lauren t Referred To Contact Radiology Diagnoses Abnormal Romberg test Procedures Mr Brain w/ and w/o Contrast Aurelia Steiner NP [address] [place] [address] Phone: tel: fax: [address] Phone: tel: fax: Referral ID Status Reason Start Date Expiration Date Visits Re quested Visits Authorized [id number] Closed 10/17/2024 10/17/2025 1 1 Encounter Details Date Type Department Care Team (Late st Contact Info) Description 10/17/2024 1:45 PM EST Office Visit [facility] [address] [place], [place] [phone] Aurelia Steiner NP [address] [place], [place] [phone] Primary hypertension (Primary Dx); Aortic valve insufficiency, etiology of cardiac valve disease unspecified; Dietary counseling; Exercise counseling; Abnormal Romberg test Social History Tobacco Use Types Packs/Day Years [...] AM EDT documented as of this encounter Last Filed Vital Signs Vital Sign Reading Time Taken Comments Blood Pressure 158/76 10/17/2024 1:34 PM EST Pulse 95 10/17/2024 1:34 PM EST Temperature 36.5 ??C (97.7 ??F) 10/17/2024 1:34 PM ES T Respiratory Rate 16 10/17/2024 1:34 PM EST Oxygen Saturation 98% 10/17/2024 1:34 PM EST Inhaled Oxygen Concentration - - Weight 66.7 kg (147 lb) 10/17/2024 1:34 PM EST Height 154.9 cm (5' 1 ) 10/17/2024 1:34 PM EST Body Mass Index 27.78 10/17/2024 1:34 PM EST documented in this encounter Progress Notes * Aurelia Obdulia, AD TERMINAL MAKEUP OPERATOR - 10/17/2024 1:45 PM EST Subjective Monica Suarez is a 74 y.o. adult who presents to the office for follow up visit - chronic conditions. Interim history: Throat always hurts Was constipated but saw GI and this is improved Current concerns: When wakes up in morning, and throat is very dry and was told it was acid reflux, so this is improving, takes pantoprazole and famotidine at night Bp- today it is high , but in general it is at goal of <140/90, endorses drinking a lot of water Reports when walking tilting to the side, no spinning, no headaches, no double vision, this has been ongoing for years, but worse recently, cannot really walk straight, daughter notices, no tinnitus,no vertigo, no trauma, no recent head imaging, not certain how memory is these days cannot recall onset Patient Active Problem List Diagnosis Aortic valve regurgitation Carcinoma of breast (CMS/HCC) Cobalamin deficiency Constipation Degeneration of lumbar intervertebral disc Hypertension Impaired fasting glucose Gastritis Intestinal metaplasia of gastric mucosa Lumbar radiculopathy Microscopic hematuria Osteoporosis Hearing loss of left ear Chronic pain of left ankle Dehydration Aortic calcification (CMS/HCC) Thyroid nodule Skin lesion Abnormal Romberg test Dietary counseling Exercise counseling Review of Systems Constitutional: Negative for chills, fatigue and fever. HENT: Positive for sore throat. Negative for congestion, mouth sores and sinus pressure. Respiratory: Negative for cough, shortness of breath and wheezing. Cardiovascular: Negative for chest pain and palpitations. Gastrointestinal: Negative for constipation, diarrhea, nausea and vomiting. Genitourinary: Negative for dysuria. Musculoskeletal: Negative for arthralgias, back pain and gait problem. Skin: Negative for rash. Neurological: Negative for dizziness, seizures and weakness. Psychiatric/Behavioral: Negative for suicidal ideas. The patient is not nervous/anxious. Objective Visit Vitals BP (!) 158/76 (BP Location: Right arm, Patient Position: Sitting, BP Cuff Size: Adult) Pulse 95 Temp 97.7 ??F (36.5 ??C) (Oral) Resp 16 Ht 5' 1 (1.549 m) Wt 147 lb (66.7 kg) SpO2 98% BMI 27.78 kg/m?? OB Status Hysterectomy Smoking Status Former BSA 1.69 m?? Physical Exam Vitals reviewed. Constitutional: Appearance: Normal appearance. HENT: Head: Normocephalic. Mouth/Throat: Mouth: Mucous membranes are dry. Cardiovascular: Rate and Rhythm: Normal rate and regular rhythm. Heart sounds: Murmur heard. Pulmonary: Breath sounds: Normal breath sounds. Abdominal: Palpations: Abdomen is soft. Musculoskeletal: Cervical back: Neck supple. No rigidity or tenderness. Neurological: Mental Status: Monica is alert and oriented to person, place, and time. Cranial Nerves: Cranial nerves 2-12 are intact. No facial asymmetry. Motor: No weakness. Coordination: Romberg sign positive. Coordination abnormal. Heel to Gutierrez Test abnormal. [id number] Test normal. Gait: Gait is intact. Comments: Observed walking pt veers to the right, though gait is fluid Psychiatric: Mood and Affect: Mood normal. Assessment/Plan Problem List Items Addressed This Visit Aortic valve regurgitation Hypertension - Primary Current Assessment & Plan Above goal in office today, at goal at home, No hypotensive episodes, Monitor Abnormal Romberg test Current Assessment & Plan Pt reports deviating to the right, failed romberg, failed coordination MRI ordered Relevant Orders Mr Brain w/ and w/o Contrast Dietary counseling Current Assessment & Plan Encouraged daily movement, working up to 30 minutes daily Dietary Recommendations: Fruits, vegetables, whole grains, protein foods, and fat-free or low-fat dairy products are healthychoices. Eat different types of protein foods in your diet. This can include seafood, lean meats, poultry, beans, peas, lentils, nuts, seeds, soy products, and eggs. Limit foods and beverages higher in added sugars, saturated fat, and sodium. Exercise Recommendations: At least 150 minutes of moderate-intensity physical activity per week, or an equivalent combinationof moderate- and vigorous-intensity activity Exercise counseling Current Outpatient Medications Medication Sig Dispense Refill atenolol (Tenormin) 25 MG tablet TAKE 1 TABLET BY MOUTH EVERY DAY 90 tablet 0 hydroCHLOROthiazide 12.5 MG tablet TAKE 1 TABLET BY MOUTH EVERY DAY 90 tablet 0 lisinopril (Prinivil) 20 MG tablet Take 1 tablet (20 mg) by mouth Once per day. 90 tablet 1 triamcinolone (Kenalog) 0.1 % cream Apply topically if needed in the morning and at bedtime (pain and swelling). 30 g 1 No current facility-administered medications for this visit. documented in this encounter Miscellaneous Notes * Assessment & Plan Note - Aurelia Steiner NP - 10/17/2024 4:32 PM ESTAssociated Problem(s): Dietary counseling Encouraged daily movement, working up to 30 minutes daily Dietary Recommendations: Fruits, vegetables, whole grains, protein foods, and fat-free or low-fat dairy products are healthychoices. Eat different types of protein foods in your diet. This can include seafood, lean meats, poultry, beans, peas, lentils, nuts, seeds, soy products, and eggs. Limit foods and beverages higher in added sugars, saturated fat, and sodium. Exercise Recommendations: At least 150 minutes of moderate-intensity physical activity per week, or an equivalent combinationof moderate- and vigorous-intensity activity * Assessment & Plan Note - Aurelia Steiner NP - 10/17/2024 4:32 PM ESTAssociated Problem(s): Abnormal Romberg test Pt reports deviating to the right, failed romberg, failed coordination MRI ordered * Assessment & Plan Note - Aurelia Steiner NP - 10/17/2024 4:31 PM ESTAssociated Problem(s): Hypertension Above goal in office today, at goal at home, No hypotensive episodes, Monitor documented in this encounter Plan of Treatment Scheduled Orders Name Type Priority Associated Diagnoses Orde r Schedule Mr Brain w/ and w/o Contrast Imaging Routine Abnormal Romberg test Expected: 10/17/2024, Expires: 10/17/2025 documented as of this encounter Visit Diagnoses Diagnosis Primary hypertension- Primary Unspecified essential hypertension Aortic valve insufficiency, etiology of cardiac valve disease unspecified Dietary counseling Dietary surveillance and counseling Exercise counseling Abnormal Romberg test documented in this encounter Additional Health Concerns Assessment Noted Time PHQ-9 Depression Total Score: 3 10/18/19 25 2:25 PM EST documented as of this encounter Care Teams Medical Field Representative Relationship Specialty Start Date End Date Aurelia Steiner NP [address] [place] [address] PCP - General Family Medicine 09/17/23 documented as of this encounter
--- OUTSIDE RECORDS SUMMARY | 2024-10-25 16:00 | XMS_ITS | Encounter Summary ---
Author Organization [employer] Address [address] [facility] [address] [place] [address] Care Team Providers Care Soa Engineer Name Role Phone Janel Kat MD Primary Care Pro vider Aurelia Steiner NP Primary Care Provider [phone] Reason for Visit * Reason Comments Med Refill Encounter Details Date Type Department Care Team (Late st Contact Info) Description 07/16/2023 Refill [facility] [address] [place], [place] [phone] [place] F[place] [address] [place], [place] [phone] Social History Tobacco Use Types Packs/Day Years [...] on filedocumented in this encounter Care Teams Soa Engineer Relationship Specialty Start Date End Date Janel Kat MD [address] [place] [phone] PCP - General Internal Medicine 02/17/23 09/16/23 Aurelia Steiner NP [address] [place] [id number] PCP - General Family Medicine 09/17/23 documented as of this encounter
--- OUTSIDE RECORDS SUMMARY | 2024-10-25 16:00 | XMS_ITS | Clinical Summary ---
Author Organization [employer] Address [address] [facility] [address] [place] [address] Care Team Providers Care Independent Film Maker Name Role Phone Aurelia Steiner RIKKI Primary Care Provider [phone] Allergies No known active allergies Medications triamcinolone (Kenalog) 0.1 % creamIndicatio ns:Dyschromia Apply topically if needed in the morning and at bedtime (pain and swelling). 30 g 1 07/28/20 24 Active lisinopril (Prinivil) 20 MG tablet Take 1 tablet (20 mg) by mouth Once per day. 90 tablet 1 10/18/19 25 026 Active hydroCHLOROthi azide 12.5 MG tablet TAKE 1 TABLET BY MOUTH EVERY DAY 90 tablet 10/25/19 25 Active atenolol (Tenormin) 25 MG tablet TAKE 1 TABLET BY MOUTH EVERY DAY 90 tablet 10/25/19 25 Active atenolol (Tenormin) 25 MG tablet TAKE 1 TABLET BY MOUTH EVERY DAY 90 tablet 07/25/20 24 025 Discontinued hydroCHLOROthi azide 12.5 MG tablet TAKE 1 TABLET BY MOUTH EVERY DAY 90 tablet 07/25/20 24 025 Discontinued lisinopril (Prinivil) 20 MG tablet Take 1 tablet (20 mg) by mouth Once per day. 90 tablet 1 07/28/20 24 025 Discontinued(Re order (will not trigger notification to Pharmacy)) Active Problems Problem Noted Date Diagnosed Date Murmur 10/18/2024 Abnormal Romberg test 10/17/2024 Assessment & Plan (10/17/2024 4:32 PM EST): Pt reports deviating to the right, failed romberg, failed coordination MRI ordered Dietary counseling 10/17/2024 Assessment & Plan (10/17/2024 4:32 PM EST): Encouraged daily movement, working up to 30 minutes daily Dietary Recommendations: Fruits, vegetables, whole grains, protein foods, and fat-free or low-fat dairy products are healthy choices. Eat different types of protein foods in your diet. This can include seafood, lean meats, poultry, beans, peas, lentils, nuts, seeds, soy products, and eggs. Limit foods and beverages higher in added sugars, saturated fat, and sodium. Exercise Recommendations: At least 150 minutes of moderate-intensity physical activity per week, or an equivalent combination of moderate- and vigorous-intensity activity Exercise counseling 10/17/2024 Skin lesion 06/09/2024 Assessment & Plan (07/02/2024 11:19 AM EST): Concerning appearance, urgent referral Thyroid nodule 05/15/2024 Overview (10/17/2024): 06/08 ultasound tr4 * TR4 (4-6 points): FNA if more than or equal to 1.5 cm in maximum dimension, followup ultrasound in 1, 2, 3 and 5 years if 1 to 1.4 cm in maximum dimension. Assessment & Plan (07/02/2024 11:12 AM EST): Has not yet heard from radiology, will reorder referral Assessment & Plan (06/04/2024 5:48 PM EDT): Incidental finding, asymptomatic, labs as ordered below Ultrasound and biopsy ordered Aortic calcification 05/03/2024 Chronic pain of left ankle 09/17/2023 Assessment & Plan (09/17/2023 7:09 PM EST): Wear sneakers daily for 1 month, if no improvement in pain rtc for further evaluation Dehydration 09/17/2023 Osteoporosis 03/27/2021 Carcinoma of breast 07/22/2015 Aortic valve regurgitation 10/10/2014 Assessment & Plan (12/27/2023 2:29 PM EDT): Pt denies active symptoms , however, pt is uncertain of last echo, unavailable in chart, echo ordered, pt aware of s/s to report Assessment & Plan (09/17/2023 7:10 PM EST): Faint murmur reports recent echo denies orhtopnea, edema, or dyspnea Intestinal metaplasia of gastric mucosa 02/01/20 14 Impaired fasting glucose 06/28/2013 Hearing loss of left ear 05/10/2013 Degeneration of lumbar intervertebral disc 01/12 Lumbar radiculopathy 09/19/2012 Cobalamin deficiency 05/05/2012 Constipation 05/05/2012 Assessment & Plan (08/12/2024 6:20 PM EST): Pt reports medication ineffective at this time, gi note referenced encouraged ongoing trial If no bm may take stimulant laxative once Hypertension 05/05/2012 Assessment & Plan (10/17/2024 4:31 PM EST): Above goal in office today, at goal at home, No hypotensive episodes, Monitor Assessment & Plan (08/12/2024 6:19 PM EST): At goal, continue current regimen Assessment & Plan (12/27/2023 2:29 PM EDT): Above goal both in office and with home readings, add amlodipine, side effects reviewed, pt will call if develops side effects Assessment & Plan (09/17/2023 7:12 PM EST): monitor bp at home, call for readings >140/>90 Gastritis 05/05/2012 Assessment & Plan (09/17/2023 7:11 PM EST): Upcoming visit with gi plans to also discuss colon cancer screening Microscopic hematuria 05/05/2012 Encounters Date Type Department Care Team Description 10/23/2024 Refill [facility] [address] [place] [address] Aurelia Steiner NP 10/18/[address] [address] Krys Caldwell [place] new order for echo 10/18/2024 Orders Only [address] [address] Aurelia tSeiner NP Murmur (Primary Dx) 10/17/2024 1:45 PM EST Office Visit [address] [address] Aurelia Steiner NP Primary hypertension (Primary Dx); Aortic valve insufficiency, etiology of cardiac valve disease unspecified; Dietary counseling; Exercise counseling; Abnormal Romberg test 10/17/2024 Travel 10/10/[address] [address] Krys Caldwell [place] Chart Prep 10/06/2024 Patient Outreach [facility] [address] [place] [address] Aurelia Steiner NP Pre-visit Planning ([facility] unable to reach LVM ) 08/24/[address] [address] Vivien Luna [place] recall 08/04/2024 10:15 AM EST Office Visit [address] [address] Aurelia Steiner NP Hypertension, unspecified type (Primary Dx); Other constipation 08/04/2024 Travel 07/28/2024 2:15 PM EST Office Visit [address] [address] Kimberlee Yang MD Dyschromia (Primary Dx) 07/28/2024 Travel from Last 3 Months Immunizations Name Administration Dates Next Due Influenza High-dose Quadriva lent Preservative Free 06/25/2020 Influenza injectable quadriv alent IIV4 with preservative 06/09/2016 Influenza injectable quadriv alent preservative free 08/21/2021 Influenza, High Dose Seasona l, Preservative Free 05/16/2018 Influenza, IIV3, injectable 06/01/2014 Influenza, Split (incl. rudy fied surface antigen) 06/14/2013 Pfizer Covid-19 Vaccine 12+ 08/21/2021,,11/01/2020 Pneumococcal Conjugate PCV 13 05/16/2018 Pneumococcal Polysaccharide PPSV23 09/08/2016 Tdap 02/04/2022,05/14/2011 Zoster, Recombinant 06/12/2021,04/10/2021 Zoster, live 05/06/2015 Social History Tobacco Use Types Packs/Day Years Used Date Smoking Tobacco: Former Cigarettes Tobacco Cessation:Counseling Given: Not Answered Depression Answer Date Recorded Patient Health Questionnaire-9 [...] not to disclose 2021 10:21 AM EDT Last Filed Vital Signs Vital Sign Reading [...] Mass Index 27.78 10/17/2024 1:34 PM EST Plan of Treatment Health Maintenance Due Date Last Done Comments CT Colonography 1950 Colonoscopy 1950 Colorectal Cancer Screening 1950 FIT DNA/Cologuard 1950 FIT 1950 FOBT 1950 Sigmoidoscopy 1950 Hepatitis C Screening 1969 RSV Patients and Patients Aged 60 years or older (1 - Risk 60-74 years 1-dose series) 2011 COVID-19 Vaccine ( season) 2024 08/21/2021, 11/19/2020, 11/01/2020 Mammogram 11/01/2024 11/02/2023, 10/14, 07/06/2019, Additional history exists Alcohol/Substance Use Screening 01/31/2025 02/01/2024 Depression Screening 10/17/2025 10/17/2024, 10/18/19 SDOH Screening 10/17/2025 10/17/2024 Tobacco Screening 10/17/2025 10/17/2024 Lipid Panel 02/09/2029 02/10/2024, 0509/2021, 12/05/2020 DTaP/Tdap/Td Vaccines (3 - Td or Tdap) 02/05/2032 02/04/2022, 05/14/2011 Pneumococcal Vaccine: 50+ Years Completed 05/16/2018, 09/08/2016 Zoster Vaccines Completed 06/12/2021, 082 01/2021, 05/06/2015 Influenza Vaccine Completed 08/04/2024, , 06/25/2020, Additional history exists HIB Vaccines Aged Out No longer eligi ble based on patient's age to complete this topic HPV Vaccines Aged Out No longer eligi ble based on patient's age to complete this topic Hepatitis A Vaccines Aged Out No long er eligible based on patient's age to complete this topic Hepatitis B Vaccines Aged Out No long er eligible based on patient's age to complete this topic IPV Vaccines Aged Out No longer eligi ble based on patient's age to complete this topic Meningococcal Vaccine Aged Out No bernard silvio eligible based on patient's age to complete this topic RSV under 20 months Aged Out No longe r eligible based on patient's age to complete this topic Rotavirus Vaccines Aged Out No longer eligible based on patient's age to complete this topic Procedures Procedure Name Priority Date/Time Associated Diagnosis Comments FL ESOPHAGUS BARIUM SWALLOW Routine 10/24/2024 8:34 AM EDT LIPID PANEL, STANDARD Routine 02/10/2024 11:41 AM EDT Primary hypertension BI MAMMOGRAM SCREENING TOMOSYNTHESIS BILATERAL Routine 11/02/2023 11:00 AM EDT from Last 3 Months or Most Recently Relevant to Health Maintenance Results * FL Esophagus Barium Swallow (10/24/2024 8:34 AM EDT) Anatomical Region Laterality Modality Head, Neck Radiographic [place] ging 10/24/2024 8:34 AM EDT Narrative 10/24/2024 12:01 PM EDT ? [facility] ?[address] ?[place] [address] ? Fluoroscopy Report ? Signed ? Patient: Suarez,Monica ?MR#: [id number] ?? 3 ? : 1950 ?Acct:[id number] ? Age/Sex: 74 / F ?ADM Date: 03/11/25 ? Loc: HO.XRAY ? Attending Dr: Samantha WILLETT ? Ordering Physician: Samantha Tran ?? Date of Service: 10/24/24 ?? Procedure(s): FL barium swallow ?? Accession Number(s): [id number] ? cc: Samantha Tran; Janel Kat MD [...] By: ?<Electronically signed by Braden S Irene, MD in OV> ?10/24/24 1158 ? DD/ 0834 ? TD/TT: 10/24/24 0908 ? Ultrasonographer: MSM ? Procedure Note Tamra, Kavya - 10/24/2024 [address] [facility] [place] [address] Fluoroscopy Report Signed Patient: Monica SuarezMR#: [id number] 3 : 1950cct:[id number] Age/Sex: 74 / FADM Date: 10/24/24 Loc: HO.XRAY Attending Dr: Samantha WILLETT Ordering Physician: Samantha Tran Date of Service: 10/24/24 Procedure(s): FL barium swallow Accession Number(s): [id number] cc: Samantha Tran; Janel Kat MD EXAMINATION: [...] Braden Bonilla MD 10/24/2024 11:58 AM EDT Dictated By: Braden Bonilla MD Signed By: <Electronically signed by Braden Bonilla MD in OV> 10/24/24 1158 DD/ 0834 TD/TT: 10/24/24 0908 Ultrasonographer: EMERSON [facility] External Provider IMG FLU OROSCOPY PROCEDURES Final Result * (ABNORMAL) Lipid Panel, Standard (02/10/2024 11:41 AM EDT) Triglycerides 145 <150 mg/dL [facility] Comment:Desirable Triglyceri de: less than 150 mg/dLBorderline High Triglyceride 150-199 mg/dLHigh Triglyceride: 200-499 mg/dLVery High Triglyceride: greater than or equal to 5OO mg/dL Cholesterol 141 <200 mg/dL [facility] Comment:Desirable Cholestero l: less than 200 mg/dLBorderline High Cholesterol: 200-239 mg/dLHigh Cholesterol: greater than 239 mg/dL LDL Cholesterol Calculated 78 <100 mg/dL [facility] Comment:Desirable LDL: less than 100 mg/dLNear Optimal/Above Optimal LDL: 110- 129 mg/dLBorderline High LDL: 130-159 mg/dLHigh LDL: 160-189 mg/dLVery High LDL: greater than or equal to 190 mg/dL HDL Cholesterol 34(L) >40 mg/dL [facility] Comment:Desirable HDL: great er than 40 mg/dL Note: This HDL assay may give artificially low results in patients with liver disease. Blood Venous blood specimen / Unknown 02/10/2024 11:41 AM EDT 02/10/2024 1:46 PM EDT Aurelia Steiner [facility] BLOOD ORDERABLES Final Resul t [facility] [address] [place] [address] [phone] * BI Mammogram Screening Tomosynthesis Bilateral (11/02/2023 11:00 AM EDT) Anatomical Region Laterality Modality Breast Bilateral Mammography 11/02/2023 11:0 0 AM EDT Narrative 11/05/2023 1:13 PM EDT ? [facility] [place] ? [address] ?[place] [address] ? Mammography Report ? Signed ? Patient: Suarez,Monica ?MR#: [id number] ?? 3 ? : 1950 ?Acct:[id number] ? Age/Sex: 73 / F ?ADM Date: 03/19/24 ? Loc: HO.MAMMO ? Attending Dr: Janel Olson MD ? Ordering Physician: Janel Kat MD ?Re ?? sults: 2Benign Findings ? Date of Service: 11/02/23 ?Follow Up: 1 Year From Orig ?? inal Mammogram ? Procedure(s): MM tomosynthesis screening BI ?? Accession Number(s): [id number] ? cc: Janel Kat MD ? EXAMINATION: ?? MM SCREENING DIGITAL BREAST TOMOSYNTHESIS, BILATERAL ? CLINICAL INFORMATION: ? Screening. Asymptomatic. Lumpectomy for left breast cancer, 2015. ? COMPARISON: ?? Mammography: 10/26/2022, 10/23/2021, 07/25/2020, 07/06/2019, 07/04/2018 ? TECHNIQUE: ?? Digital breast tomosynthesis is performed in both the craniocaudal and ?? mediolateral oblique views along with computer-aided detection (CAD). ?? Synthesized 2D images are generated from the tomosynthesis. ??Added left ?? MLO was provided for inframammary fold. ? FINDINGS: ?? There are scattered areas of fibroglandular density (ACR BI-RADS breast ?? composition Category b). ? There are post therapy changes again noted left breast similar to prior ?? studies with mild reduced breast size, and similar scarring central mid ?? 12:00 position. There are scattered dystrophic calcifications in both ?? breasts, as well as vascular calcifications. Neither breast shows ?? interval mass, developing new architectural distortion, or suspicious ?? grouped calcifications. No significant changes. ? MM/MM tomosynthesis screening BI ?? IMPRESSION: ?? No mammographic evidence of malignancy. ?? Stable post therapy changes left breast. ?? Stable benign changes both breasts. ? ASSESSMENT: ? BI-RADS BI-RADS 2 - Benign Findings ? RECOMMENDATION: ?? Routine annual mammography screening. ? 1 year F/U ? This examination should not preclude the clinical evaluation of a ?? suspicious palpable abnormality. ? This patient's information was entered into a reminder system with a ?? target due date for their next mammogram. ? Dictated By: ?Celso Barth MD ? Signed By: ?<Electronically signed by Celso Barth MD in OV> ?11/05/23 1309 ? DD/ 1100 ? TD/TT: ? Ultrasonographer: ? Procedure Note Donsupainterpreter, Image - 11/05/2023 [facility] [address] [place] [address] Mammography Report Signed Patient: Florian Suarez#: [id number] 3 : 1Acct:[id number] Age/Sex: 73 / FADM Date: 11/02/23 Loc: [facility] Attending Dr: Janel Olson MD Ordering Physician: Janel Kat sults: 2Benign Findings Date of Service: 11/02/23Follow Up: 1 Year From Orig inal Mammogram Procedure(s): MM tomosynthesis screening BI Accession Number(s): [id number] cc: Janel Kat MD EXAMINATION: MM SCREENING DIGITAL BREAST TOMOSYNTHESIS, BILATERAL CLINICAL INFORMATION: Screening. Asymptomatic. Lumpectomy for left breast cancer, 2014. COMPARISON: Mammography: 10/26/2022, 10/23/2021, 07/25/2020, 07/06/2019, 07/04/2018 TECHNIQUE: Digital breast tomosynthesis is performed in both the craniocaudal and mediolateral oblique views along with computer-aided detection (CAD). Synthesized 2D images are generated from the tomosynthesis. Added left MLO was provided for inframammary fold. FINDINGS: There are scattered areas of fibroglandular density (ACR BI-RADS breast composition Category b). There are post therapy changes again noted left breast similar to prior studies with mild reduced breast size, and similar scarring central mid 12:00 position. There are scattered dystrophic calcifications in both breasts, as well as vascular calcifications. Neither breast shows interval mass, developing new architectural distortion, or suspicious grouped calcifications. No significant changes. MM/MM tomosynthesis screening BI IMPRESSION: No mammographic evidence of malignancy. Stable post therapy changes left breast. Stable benign changes both breasts. ASSESSMENT: BI-RADS BI-RADS 2 - Benign Findings RECOMMENDATION: Routine annual mammography screening. 1 year F/U This examination should not preclude the clinical evaluation of a suspicious palpable abnormality. This patient's information was entered into a reminder system with a target due date for their next mammogram. Dictated By: Celso Barth MD Signed By: <Electronically signed by Celso Barth MD in OV> 11/05/23 1309 DD/ 1100 TD/TT: Ultrasonographer: Janel Olson MD IMG BI PROCEDURES Final Result from Last 3 Months or Most Recently Relevant to Health Maintenance Insurance [facility] [place] Member Subscriber Plan / Payer (Ef fective 2022-Present) Name:Monica Suarez Relation to Subscriber:Self Name:Monica Suarez Payer ID:Not on file Group ID:[id number] Type:Not on file Address: [address] * Guarantor: Monica Suarez Account Type Relation to Patient Date of Phone Billing Address Personal/Family Self [address] [phone] Care Teams Independent Film Maker Relationship Specialty Start Date End Date Aurelia Steiner NP [address] [place] [address] PCP - General Family Medicine 09/17/23
--- OUTSIDE RECORDS SUMMARY | 2024-10-25 16:00 | XMS_ITS | Encounter Summary ---
Author Organization [employer] Address [address] [facility] [address] [place] [address] Care Team Providers Care Dairy Equipment Installer Name Role Phone Aureila Steiner NP Primary Care Provider [phone] Reason for Visit * Reason Comments Med Refill Encounter Details Date Type Department Care Team ([facility] st Contact Info) Description 07/23/2024 Refill [facility] [address] [place] [address] Aurelia Steiner NP [address] [place] [address] Social History Tobacco Use Types Packs/Day Years [...] t he electric, gas, oil or water [employer] threatened to shut off services in your [...] documented as of this encounter Care Teams Dairy Equipment Installer Relationship Specialty Start Date End Date Aurelia Steiner NP [address] [place] [address] PCP - General Family Medicine 09/17/23 documented as of this encounter
== END 2024-10-25 13:34 | disposition home or self-care (01) ==
LOC: HO.MRI 13:33
PROVIDERS: PCP Student in an Organized Health Care Education/Training Program; Visit Provider Nurse Practitioner Family
DX: R29.818 Other symptoms and signs involving the nervous system (principal)
CPT/HCPCS: 70553; A9585

== ENCOUNTER → 2024-12-07 08:31 | Outpatient (REF) | payer MEDICARE, SELFPAY ==
--- NOTE | 2024-12-07 08:35 | CA_ITS ---
Transthoracic Echocardiogram Patient (Last, First, Middle): Monica Suarez, Gender: Female Date of : 1950 Age: 74 Procedure Date: 12/07/2024 Procedure Type: Transthoracic Echocardiogram Location: OP Height: 154.94 cm Weight: 66.68 kg BSA: 1.66 m2 Heart Rate: 58 bpm BP: 136 / 75 mmHg Content Designer: ZOFIA Referring MD: Aurelia Steiner NP Symptoms: MURMUR R01.1 Study Quality: Adequate ECG Rhythm: Bradycardia Conclusions: - The left ventricular systolic function is normal. The calculated ejection fraction is 70% by biplane method. - There is mild aortic valve regurgitation. Findings Left Ventricle Normal left ventricular cavity size. The left ventricular systolic function is normal. The calculated ejection fraction is 70% by biplane method. There is no evidence of regional wall motion abnormalities. Evidence suggests grade I (mild) diastolic dysfunction. Focal hypertrophy of the basal septum. Right Ventricle Normal right ventricular cavity size and systolic function. Atria Both atria are normal in size. Aortic Valve There is a normal trileaflet aortic valve. There is mild calcification of the aortic valve. There is no aortic valve stenosis. There is mild aortic valve regurgitation. Mitral Valve The mitral valve appears normal. There is trace mitral valve regurgitation. There is no mitral valve stenosis. Pulmonic Valve The pulmonic valve is likely normal. Tricuspid Valve Normal tricuspid valve structure. There is mild tricuspid valve regurgitation. There is no evidence of pulmonary hypertension. Great Vessels The asc aorta is normal in size. Venous The inferior vena cava is normal in size and collapses greater than 50% with inspiration. Pericardium/Pleural There is no evidence of pericardial effusion. Prior Study Comparison No significant change compared to prior study dated: 03/23/2024. Measurements 2D Linear Measurements IVSd: 0.90 0.6-0.9/0.6-1.0 cm LVIDd: 3.80 3.9-5.3/4.2-5.9 cm LVIDd Index: 2.29 2.4-3.2/2.2-3.1 cm/m2 LVIDs: 2.21 2.0-3.6 cm LVPWd: 0.88 0.7-1.1 cm LA Diam: 3.90 2.7-3.8/3.0-4.0 cm LAIDs Index: 2.35 1.5-2.3 cm/m2 LV Mass: 123.53 67-162/88-224 g LV Mass Index: 74.41 43-95/49-115 g/m2 LVOT Diam: 1.80 3.0+(-)1.3 cm 2D Systolic Function EF 4C: 68.90 >55% EF 2C: 71.00 >55% EF BiP: 70.10 >55% Mitral Valve MV Pk E: 1.03 MV PK A: 1.04 MV Decel Time: 212.00 E/A: 1.00 E'Lateral: 5.33 E'Medial: 3.59 E/E' Med: 28.70 E/E' Lat: 19.30 PHT: 62.00 MVA PHT: 3.55 Decel Fleming: 4.84 Aortic Valve AoV Pk Bernard: 1.53 AoV Mn Bernard: 1.06 AoV VTI: 0.36 AoV Pk Grad: 9.00 Aov Mn Grad: 5.00 MARYLOU Cont.VTI: 1.94 AI Pk Bernard: 4.15 AI VTI: 2.40 AI Fleming: 2.12 AI Alias Bernard: 0.39 AI RV - PISA: 36.00 ERO - PISA: 15.00 LVOT LVOT Pk Bernard: 1.13 LVOT Mn Bernard: 0.77 LVOT VTI: 0.28 LVOT Pk Grad: 5.00 LVOT Mn Grad: 3.00 LVOT Diam: 1.80 LVOT Area: 2.54 Diastolic Function MV Pk E: 1.03 MV Pk A: 1.04 E/A: 1.00 E'Medial: 3.59 E/E' Med: 28.70 E' Laterial: 5.33 E/E' Lat: 19.30 Right Ventricle TAPSE (mm): 24.00 TVS' Bernard: 11.50 Tricuspid Valve TR Pk Bernard: 2.29 TR Pk Grad: 21.00 RA Press: 3.00 RVSP: 24.00 Great Vessels Aorta Sinus of Valsalva: 2.90 2.0-3.5 cm Ao Asc: 3.50 2.1-3.4 cm Pulmonary Valve PV Pk Bernard: 0.79 Peak PV Grad: 2.00 Updated in Other Vendor System with Status of Final Nelson Carver MD electronically signed on 12/08/2024 4:26:15 PM with status of Final
--- OUTSIDE RECORDS SUMMARY | 2024-12-07 08:55 | XMS_ITS | Encounter Summary ---
Author Organization [employer] Address [address] [facility] [address] [place] [address] Care Team Providers Care Beer Brewer Name Role Phone Janel Kat MD Primary Care Pro vider Aurelia Steiner NP Primary Care Provider [phone] Reason for Visit * Reason Onset Date Comments ER Follow-up 09/10/2023 Encounter Details Date Type Department Care Team (Late st Contact Info) Description 09/10/2023 Telephone [facility] MEDICINE [address] [place] [address] Janel Kat MD [address] [place] [address] ER Follow-up Social History Tobacco Use Types [...] ED visit on : Date: 09/01 Hospital: [facility] Seen for: Fell down a flight of stairs Patient advised will forward to team nurse for follow up documented in this encounter Plan of Treatment Not on file documented as of this encounter Visit Diagnoses Not on filedocumented in this encounter Care Teams Beer Brewer Relationship Specialty Start Date End Date Janel Kat MD [address] [place] [address] PCP - General Internal Medicine 02/17/23 09/16/23 Aurelia Steiner NP [address] [place] [address] PCP - General Family Medicine 09/17/23 documented as of this encounter
--- OUTSIDE RECORDS SUMMARY | 2024-12-07 08:55 | XMS_ITS | Encounter Summary ---
Author Organization [employer] Address [address] [facility] [address] [place] [address] Care Team Providers Care Glass Grinder Name Role Phone Aurelia Steiner NP Primary Care Provider [phone] Reason for Visit * Reason Onset Date Comments Chart Prep 12/05/2024 Encounter Details Date Type Department Care Team (Late st Contact Info) Description 12/05/2024 Telephone [facility] MEDICINE [address] [place] [address] Aurelia Steiner NP [address] [place] [address] Chart Prep Social History Tobacco Use Types [...] encounter Miscellaneous Notes * Telephone Encounter - Matthew Bello MA - 12/05/2024 9:54 AM EDT .Chart Prep Labs: not applicable Images: done Referrals: appointment pending Vaccines due: yes RSV Covid Screenings: colonoscopy and mammogram Overdue care gaps: SBIRT documented in this encounter Plan of Treatment Not on file documented as of this encounter Visit Diagnoses Not on filedocumented in this encounter Additional Health Concerns Assessment Noted Time PHQ-9 Depression Total Score: 3 10/18/19 25 2:25 PM EST documented as of this encounter Care Teams Glass Grinder Relationship Specialty Start Date End Date Aurelia Steiner NP [address] [place] [address] PCP - General Family Medicine 09/17/23 documented as of this encounter
--- OUTSIDE RECORDS SUMMARY | 2024-12-07 08:55 | XMS_ITS | Encounter Summary ---
Author Organization [employer] Address [address] [facility] [address] [place] [address] Care Team Providers Care Shipping And Receiving Coordinator Name Role Phone Janel Kat MD Primary Care Pro vider Aurelia Steiner NP Primary Care Provider [phone] Reason for Visit * Reason Comments Med Refill Encounter Details Date Type Department Care Team (Late st Contact Info) Description 07/16/2023 Refill [facility] MEDICINE [address] [place], [place] [phone] MarionSary FNP [address] [place], [place] [phone] Social History Tobacco Use Types Packs/Day Years [...] on filedocumented in this encounter Care Teams Shipping And Receiving Coordinator Relationship Specialty Start Date End Date Janel Kat MD [address] [place] [address] [id number] PCP - General Internal Medicine 02/17/23 09/16/23 Aurelia Steiner NP [address] [place] [address] PCP - General Family Medicine 09/17/23 documented as of this encounter
--- OUTSIDE RECORDS SUMMARY | 2024-12-07 08:55 | XMS_ITS | Encounter Summary ---
Author Organization [employer] Address [address] [facility] [address] [place] [address] Care Team Providers Care Gripper Installer Name Role Phone Aurelia Steiner NP Primary Care Provider [phone] Reason for Visit * Reason Comments Med Refill Encounter Details Date Type Department Care Team ([facility] st Contact Info) Description 07/16/2024 Refill [facility] MEDICINE [address] [place] [address] Aurelia Steiner NP [address] [place] [address] Social History Tobacco Use Types Packs/Day Years [...] t he electric, gas, oil or water [employer] threatened to shut off services in your [...] documented as of this encounter Care Teams Gripper Installer Relationship Specialty Start Date End Date Aurelia Steiner NP [address] [place] [address] PCP - General Family Medicine 09/17/23 documented as of this encounter
--- OUTSIDE RECORDS SUMMARY | 2024-12-07 08:55 | XMS_ITS | Encounter Summary ---
Author Organization [employer] Address [address] [facility] [address] [place] [address] Care Team Providers Care Electronic Repair Troubleshooter Name Role Phone Aurelia Steiner RIKKI Primary Care Provider [phone] Encounter Details Date Type Department Care Team (Latest Contact Info) Description 12/06/2024 Travel Social History Tobacco Use Types Packs/Day [...] documented as of this encounter Care Teams Electronic Repair Troubleshooter Relationship Specialty Start Date End Date Aruelia Steiner NP [address] [place] [address] PCP - General Family Medicine 09/17/23 documented as of this encounter
--- OUTSIDE RECORDS SUMMARY | 2024-12-07 08:55 | XMS_ITS | Encounter Summary ---
Author Organization [employer] Address [address] [facility] [address] [place] [address] Care Team Providers Care Natural Gas Field Processing Supervisor Name Role Phone Janel Kat MD Primary Care Pro vider Aurelia Steiner NP Primary Care Provider [phone] Reason for Visit * Reason Onset Date Comments Nurse Triage 09/16/2023 Encounter Details Date Type Department Care Team (Late st Contact Info) Description 09/16/2023 Telephone [facility] MEDICINE [address] [place] [address] Janel Kat MD [address] [place] [address] Nurse Triage Social History Tobacco Use Types [...] Please assist with obtaining ER notes from [facility] visit on 09/01/23 following fall. Pt has appt 09/17/23 at 1pm with Aurelia QIU. * Telephone Encounter - Maribel García RN - 09/16/2023 9:08 AM EST Call to deep Brooks seen at [facility] 09/01/23 following a fall from stairs. Per [...] 09/17/2023 1:00 PM Aurelia Steiner NP MEDICINE [facility] Video visit offer not recorded Positive [...] Severe pain now, pt was seen at [facility] on 09/01 for falling down the stairs The caller accepted this outcome Please contact pt at [phone] documented in this encounter Plan of Treatment Not on file documented as of this encounter Visit Diagnoses Not on filedocumented in this encounter Care Teams Natural Gas Field Processing Supervisor Relationship Specialty Start Date End Date Janel Kat MD [address] [place] [address] PCP - General Internal Medicine 02/17/23 09/16/23 Aurelia Steiner NP [address] [place] [address] PCP - General Family Medicine 09/17/23 documented as of this encounter
--- OUTSIDE RECORDS SUMMARY | 2024-12-07 08:55 | XMS_ITS | Encounter Summary ---
Author Organization [employer] Address [address] [facility] [address] [place] [address] Care Team Providers Care Braille Teacher Name Role Phone Aurelia Steiner RIKKI Primary Care Provider [phone] Reason for Visit * Reason Comments Follow-up Encounter Details Date Type Department Care Team ([facility] st Contact Info) Description 12/06/2024 10:00 AM EDT Office Visit [facility] MEDICINE [address] [place] [address] Jerel Mcmillan CNP [address] [place] [address] Dark urine (Primary Dx) Social History Tobacco Use Types [...] Sign Reading Time Taken Comments Blood Pressure 136/86 12/06/2024 9:57 AM EDT Pulse 95 12/06/2024 9:57 AM EDT Temperature 36.7 ??C (98 ??F) 12/06/2024 9:57 AM EDT Respiratory Rate 18 12/06/2024 9:57 AM EDT Oxygen Saturation 98% 12/06/2024 9:57 AM EDT Inhaled Oxygen Concentration - - Weight 67 kg (147 lb 12.8 oz) 12/06/2024 9:57 AM EDT Height - - Body Mass Index 27.93 10/17/2024 1:34 PM EST documented in this encounter Progress Notes * Jerel Mcmillan CNP - 12/06/2024 10:00 AM EDT Subjective Patient ID: Monica Suarez is a 74 y.o. adult who presents for sick onsite, reporting dark urine. Denies pain or burning with urination. Denies foul odor, denies visible blood in urine. Denies fever, chills, flank pain. She reports that she notices her urine is darker when she is dehydrated but she says it resolves when she drinks enough water. Denies any other concerns today. Interim Hx: Pt followed by urology for microscopic hematuria TRENT 06/2024. Per provider note Workup included office cystoscopy-12/31/22-- Cystoscopy findings- No suspicious bladder lesions. Follow up renal US 05/02/24 discussed is within normal limits, b/L simple renal cysts. The patient Pt referred to nephrology for complete workup for microscopic hematuria. Pt confirms that she is followed by nephrology. Review of Systems Constitutional: Negative for appetite change, chills, diaphoresis, fatigue, fever and unexpected weight change. Respiratory: Negative for apnea, cough, chest tightness, shortness of breath and wheezing. Cardiovascular: Negative for chest pain and palpitations. Gastrointestinal: Negative for abdominal distention, abdominal pain, blood in stool, constipation, diarrhea, nausea and vomiting. Genitourinary: Negative for decreased urine volume, difficulty urinating, dysuria, flank pain, frequency, hematuria, pelvic pain and urgency. Skin: Negative for pallor. Neurological: Negative for dizziness, syncope, speech difficulty, weakness, light-headedness, numbness and headaches. Psychiatric/Behavioral: Negative. Objective Vitals: 12/06/24 0957 BP: 136/86 Pulse: 95 Resp: 18 Temp: 98 ??F (36.7 ??C) SpO2: 98% Physical Exam Vitals reviewed. Constitutional: General: Monica is not in acute distress. Appearance: Normal appearance. Monica is not ill-appearing, toxic-appearing or diaphoretic. HENT: Head: Normocephalic and atraumatic. Cardiovascular: Rate and Rhythm: Normal rate and regular rhythm. Pulses: Normal pulses. Heart sounds: Normal heart sounds. No murmur heard. No friction rub. No gallop. Pulmonary: Effort: Pulmonary effort is normal. No respiratory distress. Breath sounds: Normal breath sounds. No stridor. No wheezing, rhonchi or rales. Chest: Chest wall: No tenderness. Abdominal: General: Abdomen is flat. Bowel sounds are normal. Palpations: Abdomen is soft. Tenderness: There is no abdominal tenderness. There is no right CVA tenderness or left CVA tenderness. Musculoskeletal: Right lower leg: No edema. Left lower leg: No edema. Neurological: General: No focal deficit present. Mental Status: Monica is alert and oriented to person, place, and time. Mental status is at baseline. Psychiatric: Mood and Affect: Mood normal. Behavior: Behavior normal. Thought Content: Thought content normal. Judgment: Judgment normal. Assessment/Plan Problem List Items Addressed This Visit None Visit Diagnoses Dark urine - Primary Relevant Orders POCT Urinalysis (Completed) U/a neg for infection, + for blood, this is a chronic issue. Advised pt to continue to f/u with nephrology for microscopic hematuria. Advised ample hydration. Advised pt to RTC if new or worsening sx. [facility] DIE MAKER TRIM Attestation DIE MAKER TRIM Resident Attestation: Patient was seen and evaluated by Jerel Mcmillan CNP, in collaboration with Dillon Castaneda MD who has reviewed my assessment and plan. I, Dillon Castaneda MD, have reviewed the resident's note and agree with the assessment & plan of care as documented above. documented in this encounter Plan of Treatment Not on file documented as of this encounter Procedures Procedure Name Priority Date/Time Associated Diagnosis Comments POCT URINALYSIS DIPSTICK Routine 12/06/2024 10:29 AM EDT Dark urine documented in this encounter Results * (ABNORMAL) POCT Urinalysis (12/06/2024 10:29 AM EDT) Color, UA Yellow Clarity, UA Clear Glucose, UA Negative Bilirubin, UA Negative Ketones, UA Negative Spec Grav, UA 1.015 Blood, UA Positive(A) Negative, None Detected Comment:Large pH, UA 6.0 Protein, UA Negative Urobilinogen, UA 1.0 Leukocytes, UA Negative Negative, Rare, Trace Nitrite, UA Negative Negative, None Detected Appearance, UA Yellow QC Media Lot # [id number] Lot# Expiration Date [id number] Urine 12/06/2024 10:2 9 AM EDT Jerel Mcmillan CNP POINT OF CARE TEST ENTER/ EDIT ORDERABLES Final Result documented in this encounter Visit Diagnoses Diagnosis Dark urine- Primary Other nonspecific finding on examination of urine documented in this encounter Additional Health Concerns Assessment Noted Time PHQ-9 Depression Total Score: 3 10/18/19 25 2:25 PM EST documented as of this encounter Care Teams Braille Teacher Relationship Specialty Start Date End Date Aurelia Steiner NP [address] [place] [address] PCP - General Family Medicine 09/17/23 documented as of this encounter
--- OUTSIDE RECORDS SUMMARY | 2024-12-07 08:55 | XMS_ITS | Clinical Summary ---
Author Organization [employer] Address [address] [facility] [address] [place] [address] Care Team Providers Care Flight Test Engineer Name Role Phone Aurelia Steiner RIKKI Primary Care Provider [phone] Allergies No known active allergies Medications triamcinolone (Kenalog) 0.1 % creamIndication s:Dyschromia Apply topically if needed in the morning and at bedtime (pain and swelling). 30 g 1 4 Active lisinopril (Prinivil) 20 MG tablet Take 1 tablet (20 mg) by mouth Once per day. 90 tablet 1 5 10/18/19 26 Active hydroCHLOROthia zide 12.5 MG tablet TAKE 1 TABLET BY MOUTH EVERY DAY 90 tablet 5 Active atenolol (Tenormin) 25 MG tablet TAKE 1 TABLET BY MOUTH EVERY DAY 90 tablet 5 Active Active Problems Problem Noted Date Diagnosed Date [...] Encounters Date Type Department Care Team Description 12/06/2024 10:00 AM EDT Office Visit [facility] [address] [place] [address] Jerel Mcmillan CNP Dark urine (Primary Dx) 12/06/2024 Travel 12/05/2024 Telephone [facility] [address] [place] [address] Aurelia Steiner NP Chart Prep 12/01/2024 Telephone [facility] [address] [place] [address] Aurelia Steiner NP Nurse Triage 10/23/2024 Refill [facility] [address] [place] [address] Aurelia Steiner NP 10/18/2024 Telephone [facility] [address] [place] [address] Krys Cladwell MA new order for echo 10/18/2024 Orders Only [facility] [address] [place] [address] Aurelia Steiner NP Murmur (Primary Dx) 10/17/2024 1:45 PM EST Office Visit [facility] [address] [place] [address] Aurelia Steiner NP Primary hypertension (Primary Dx); Aortic valve insufficiency, etiology of cardiac valve disease unspecified; Dietary counseling; Exercise counseling; Abnormal Romberg test 10/17/2024 Travel 10/10/2024 Telephone [facility] [address] [place] [address] Krys Caldwell MA Chart Prep 10/06/2024 Patient Outreach [facility] [address] [place], [place] [phone] Aurelia Steiner NP Pre-visit Planning ([facility] unable to reach [facility] ) from Last 3 Months Immunizations Name Administration [...] 12.8 oz) 12/06/2024 9:57 AM EDT Height 154.9 cm (5' 1 ) 10/17/2024 1:34 PM EST Body Mass Index 27.93 10/17/2024 1:34 PM EST Plan of Treatment [...] Screening 10/17/2025 10/17/2024 Lipid Panel 02/09/2029 02/10/2024, 12/14, 12/05/2020 DTaP/Tdap/Td Vaccines (3 - Td or Tdap) 02/05/2032 02/04/2022, 05/14/2011 Pneumococcal Vaccine: 50+ Years Completed 05/16/2018, 09/08/2016 Zoster Vaccines Completed 06/12/2021, 03/17, 05/06/2015 Influenza Vaccine Completed 08/04/2024, , 06/25/2020, [...] Routine 12/06/2024 10:29 AM EDT Dark urine MR BRAIN W AND WO CONTRAST Routine 10/25/2024 1:51 PM EDT Abnormal Romberg test FL ESOPHAGUS BARIUM SWALLOW Routine 10/24/2024 8:34 AM EDT LIPID PANEL, STANDARD Routine 02/10/2024 11:41 AM EDT Primary hypertension BI MAMMOGRAM SCREENING TOMOSYNTHESIS BILATERAL Routine 11/02/2023 11:00 AM EDT from Last 3 Months or Most Recently Relevant to Health Maintenance Results * (ABNORMAL) POCT Urinalysis (12/06/2024 10:29 [...] Media Lot # [id number] Lot# Expiration Date [id number] Urine 12/06/2024 10:2 9 AM EDT [facility] POINT OF CARE TEST ENTER/ EDIT ORDERABLES Final Result * Mr Brain w/ and w/o Contrast (10/25/2024 1:51 PM EDT) Anatomical Region Laterality Modality Brain Magnetic Resonan ce 10/25/2024 1:51 PM EDT Narrative 10/26/2024 8:50 AM EDT ? [facility] ?[address] ?[place] [address] ? Magnetic Resonance Report ? Signed ? Patient: Suarez,Monica ?MR#: [id number] ?? 3 ? : 1950 ?Acct:[id number] ? Age/Sex: 74 / F ?ADM Date: 10/25/24 ? Loc: HO.MRI ? Attending Dr: Aurelia Steiner SEO ASSISTANT ? Ordering Physician: Aurelia Steiner NP ?? Date of Service: 10/25/24 ?? Procedure(s): MR head/brain wo/w con ?? Accession Number(s): [id number] ? cc: Aurelia Steiner NP; Janel Kat MD ? EXAMINATION: ?? MR BRAIN WITHOUT AND WITH CONTRAST ? CLINICAL INFORMATION: ?? History of breast CA in 2015, hypertension, gait deviating to right ?? side. 74-year-old female. ? COMPARISON: ?? No prior MRI. ?? Correlation made with CT abdomen 05/05/2024. ? TECHNIQUE: ?? Multiplanar, multisequence MRI of the brain was obtained before and ?? after the intravenous administration of 6.5 mL Gadavist. Exam performed ?? on a 1.5 Carolina Siemens high-field scanner. Standard sequences utilized. ? FINDINGS: ?? There is no diffusion restriction. ?? There is no intracranial hemorrhage, acute infarction, mass effect, or ?? edema. ?? Ventricles, sulci, and cisterns are mildly diffusely prominent, in ?? keeping with age appropriate involutional changes. No asymmetric ?? pattern of atrophy. No shift of midline. ?? No abnormal hemosiderin deposition is identified. ? There are a several scattered punctate and minimally confluent foci of ?? white matter T2 hyperintensity in the periventricular, subcortical, and ?? hemispheric deep white matter, and central and right sneha. These ?? findings are nonspecific, but are most likely on the basis of mild to ?? moderate small vessel ischemic changes. ?? 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 henning radiata, and right thalamus pulvinar nucleus. ? After contrast administration, there is no abnormal intra or ?? extra-axial enhancement. ?? Normal enhancement of the major cortical and dural venous sinuses. ? Midline structures appear normally formed. The pituitary gland appears ?? normal. ?? Posterior fossa structures appear normal. Cerebellar tonsils are ?? appropriately located. ?? Major flow voids are preserved within the skull base. ? The globes and orbital contents demonstrate lens replacements. 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 ? Paranasal sinuses are clear bilaterally. ?? Nasal septum is midline without spur. ?? The mastoids and tympanic cavities are normally aerated. ? Extracranial soft tissues demonstrate no abnormalities. ?? No suspicious bone marrow changes are evident. There is mild ?? hyperostosis frontalis. Mild degenerative changes in both TM joints. ?? Atlantoaxial joint is normal. ? MR/MR head/brain wo/w con ?? IMPRESSION: ?? 1. No evidence of intracranial hemorrhage, acute infarction, mass ?? effect, edema, or abnormal enhancement. No evidence of metastatic ?? disease. ?? 2. Age-appropriate involutional changes, with mild to moderate changes ?? of small vessel ischemia. ?? 3. 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 anterior henning radiata, and right posterior thalamus. ?? 4. Additional ancillary findings as discussed in the body of the report. ? Electronically signed by: ??Celso Barth MD ??10/26/2024 08:47 AM EDT RP ? Dictated By: ?Celso Barth MD ? Signed By: ?<Electronically signed by Celso Barth MD in OV> ?10/26/24 0847 ? DD/ 1351 ? TD/TT: 10/25/24 1423 ? Hairspring Setter: ? Procedure Note Kavya Barboza - 10/26/[address] [address] Magnetic Resonance Report Signed Patient: Monica SuarezMR#: [id number] 3 : 1950cct:[id number] Age/Sex: 74 / FADM Date: 10/25/24 Loc: HO.MRI Attending Dr: Aurelia Steiner SEO ASSISTANT Ordering Physician: Aurelia Steiner NP Date of Service: 10/25/24 Procedure(s): MR head/brain wo/w con Accession Number(s): [id number] cc: Aurelia Steiner SEO ASSISTANT; Janel Kat MD EXAMINATION: MR BRAIN WITHOUT AND WITH CONTRAST CLINICAL INFORMATION: History of breast CA in 2015, hypertension, gait deviating to right side. 74-year-old female. COMPARISON: No prior MRI. Correlation made with CT abdomen 05/05/2024. TECHNIQUE: Multiplanar, multisequence MRI of the brain was obtained before and after the intravenous administration of 6.5 mL Gadavist. Exam performed on a 1.5 Carolina Siemens high-field scanner. Standard sequences utilized. FINDINGS: There is no diffusion restriction. There is no intracranial hemorrhage, acute infarction, mass effect, or edema. Ventricles, sulci, and cisterns are mildly diffusely prominent, in keeping with age appropriate involutional changes. No asymmetric pattern of atrophy. No shift of midline. No abnormal hemosiderin deposition is identified. There are a several scattered punctate and minimally confluent foci of white matter T2 hyperintensity in the periventricular, subcortical, and hemispheric deep white matter, and central and right sneha. These findings are nonspecific, but are most likely on the basis of mild to moderate small vessel ischemic changes. Tiny old lacunar type infarcts right external capsule, right anterior henning radiata, and right thalamus pulvinar nucleus. After contrast administration, there is no abnormal intra or extra-axial enhancement. Normal enhancement of the major cortical and dural venous sinuses. Midline structures appear normally formed. The pituitary gland appears normal. Posterior fossa structures appear normal. Cerebellar tonsils are appropriately located. Major flow voids are preserved within the skull base. The globes and orbital contents demonstrate lens replacements. 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 Paranasal sinuses are clear bilaterally. Nasal septum is midline without spur. The mastoids and tympanic cavities are normally aerated. Extracranial soft tissues demonstrate no abnormalities. No suspicious bone marrow changes are evident. There is mild hyperostosis frontalis. Mild degenerative changes in both TM joints. Atlantoaxial joint is normal. MR/MR head/brain wo/w con IMPRESSION: 1. No evidence of intracranial hemorrhage, acute infarction, mass effect, edema, or abnormal enhancement. No evidence of metastatic disease. 2. Age-appropriate involutional changes, with mild to moderate changes of small vessel ischemia. 3. 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 4. Additional ancillary findings as discussed in the body of the report. Electronically signed by: Celso Barth MD 10/26/2024 08:47 AM EDT Dictated By: Celso Barth MD Signed By: <Electronically signed by Celso Barth MD in OV> 10/26/24 0847 DD/ 1351 TD/TT: 10/25/24 1423 Hairspring Setter: us Aurelia Obdulia SEO ASSISTANT IMG MRI PROCEDURES Edited Result - Final * FL Esophagus Barium Swallow (10/24/2024 8:34 AM EDT) Anatomical Region Laterality Modality Head, Neck Radiographic Jamaiac ging 10/24/2024 8:34 AM EDT Narrative 10/24/2024 12:01 PM EDT ? [facility] ?[address] ?[place] [address] ? Fluoroscopy Report ? Signed ? Patient: Suarez,Monica ?MR#: [id number] ?? 3 ? : 1950 ?Acct:[id number] ? Age/Sex: 74 / F ?ADM Date: 10/24/24 ? Loc: HO.XRAY ? Attending Dr: Samantha WILLETT ? Ordering Physician: Samantha Tran ?? Date of Service: 10/24/24 ?? Procedure(s): FL barium swallow ?? Accession Number(s): [id number] ? cc: Samantha Tran; Janel Kat MD [...] 11:58 AM EDT RP ? Dictated By: ?Braden Bonilla MD ? Signed By: ?<Electronically signed by Braden Bonilla MD in OV> ?10/24/24 1158 ? DD/ 0834 ? TD/TT: 10/24/24 0908 ? Hairspring Setter: MSM ? Procedure Note Kavya Barboza - 10/24/2024 [place] [address] Fluoroscopy Report Signed Patient: Florian Suarez#: [id number] 3 : 1950cct:[id number] Age/Sex: 74 / FADM Date: 10/24/24 Loc: KATHIAY Attending Dr: Samantha WILLETT Ordering Physician: Samantha Tran Date of Service: 10/24/24 Procedure(s): FL barium swallow Accession Number(s): [id number] cc: Samantha Tran; Janel Kat MD EXAMINATION: [...] 10/24/24 1158 DD/ 0834 TD/TT: 10/24/24 0908 Hairspring Setter: EM[place] [facility] External Provider IMG FLU OROSCOPY PROCEDURES Final Result * (ABNORMAL) Lipid Panel, Standard (02/10/2024 11:41 AM EDT) Triglycerides 145 <150 mg/dL [facility] Comment:Desirable Triglyceri de: less than 150 mg/dLBorderline High Triglyceride 150-199 mg/dLHigh Triglyceride: 200-499 mg/dLVery High Triglyceride: greater than or equal to 5OO mg/dL Cholesterol 141 <200 mg/dL [facility] Comment:Desirable Cholestero l: less than 200 mg/dLBorderline High Cholesterol: 200-239 mg/dLHigh Cholesterol: greater than 239 mg/dL LDL Cholesterol Calculated 78 <100 mg/dL [facility] Comment:Desirable LDL: less than 100 mg/dLNear Optimal/Above Optimal LDL: 110- 129 mg/dLBorderline High LDL: 130-159 mg/dLHigh LDL: 160-189 mg/dLVery High LDL: greater than or equal to 190 mg/dL HDL Cholesterol 34(L) >40 mg/dL [facility] Comment:Desirable HDL: great er than 40 mg/dL Note: This HDL assay may give artificially low results in patients with liver disease. Blood Venous blood specimen / Unknown 02/10/2024 11:41 AM EDT 02/10/2024 1:46 PM EDT us Aurelia Steiner SEO ASSISTANT LAB BLOOD ORDERABLES Final Resul t [facility] [address] [place] [address] [phone] * BI Mammogram Screening Tomosynthesis Bilateral (11/02/2023 11:00 AM EDT) Anatomical Region Laterality Modality Breast Bilateral Mammography 11/02/2023 11:0 0 AM EDT Narrative 11/05/2023 1:13 PM EDT ? [facility] ? [address] ?[place] [id number] ? Mammography Report ? Signed ? Patient: Suarez,Monica ?MR#: [id number] ?? 3 ? : 1950 ?Acct:[id number] ? Age/Sex: 73 / F ?ADM Date: 03/19/24 ? Loc: HO.MAMMO ? Attending Dr: Janel Olson MD ? Ordering Physician: Janel Kat MD ?Re ?? sults: 2Benign Findings ? Date of Service: 11/02/23 ?Follow Up: 1 Year From Orig ?? inal Mammogram ? Procedure(s): MM tomosynthesis screening BI ?? Accession Number(s): [id number] ? cc: Janel Kat MD ? EXAMINATION: [...] 1309 ? DD/ 1100 ? TD/TT: ? Hairspring Setter: ? Procedure Note Donotuseinterpreter, Image - 11/05/2023 [facility] [address] [place] [address] Dr. Og, JIM [address] Mammography Report Signed Patient: Florian Suarez#: [id number] 3 : 1950cct:[id number] Age/Sex: 73 / FADM Date: 11/02/23 Loc: HO.MAMMO Attending Dr: Janel Olson MD Ordering Physician: Janel Kat sults: 2Benign Findings Date of Service: 11/02/23Follow Up: 1 Year From Orig inal Mammogram Procedure(s): MM tomosynthesis screening BI Accession Number(s): [id number] cc: Janel Kat MD EXAMINATION: MM SCREENING DIGITAL BREAST TOMOSYNTHESIS, BILATERAL CLINICAL INFORMATION: Screening. Asymptomatic. Lumpectomy for left breast cancer, 2015. COMPARISON: Mammography: 10/26/2022, 10/23/2021, 07/25/2020, 07/06/2019, 07/04/2018 [...] in OV> 11/05/23 1309 DD/ 1100 TD/TT: Hairspring Setter[facility]ress[facility]ricia Olson MD IMG BI PROCEDURES Final Result from Last 3 Months or Most Recently Relevant to Health Maintenance Insurance Member Subscriber Plan / Payer (Ef fective 2022-Present) Name:SuarezJose MiguelMonica Relation to Subscriber:Self Name:Suarez, Monica Payer ID:Not on file Group ID:[id number] Type:Not on file Address: [address] [address] [place] [place] [address] Care Teams Flight Test Engineer Relationship Specialty Start Date End Date Aurelia Steiner NP [address] [place] [address] PCP - General Family Medicine 09/17/23
--- OUTSIDE RECORDS SUMMARY | 2024-12-07 08:55 | XMS_ITS | Encounter Summary ---
Author Organization [id number] Address [address] [place] [address] [address] [place] [address] Care Team Providers Care Power Press Supervisor Name Role Phone Janel Kat MD Primary Care Pro vider Aurelia Steiner NP Primary Care Provider [phone] Reason for Visit * Reason Onset Date Comments Appointment Request 09/07/2023 Encounter Details Date Type Department Care Team (Late st Contact Info) Description 09/07/2023 Telephone [facility] [address] [place] [address] Janel Kat MD [address] [place] [address] Appointment Request Social History Tobacco Use Types [...] on filedocumented in this encounter Care Teams Power Press Supervisor Relationship Specialty Start Date End Date Janel Kat MD [address] [place] [address] PCP - General Internal Medicine 02/17/23 09/16/23 Aurelia Steiner NP [address] [place] [address] PCP - General Family Medicine 09/17/23 documented as of this encounter
--- OUTSIDE RECORDS SUMMARY | 2024-12-07 08:55 | XMS_ITS | Encounter Summary ---
Author Organization [employer] Address [address] [facility] 7[address] [place] [address] Care Team Providers Care Manager Stars Name Role Phone Aurelia Steiner NP Primary Care Provider [phone] Reason for Visit * Reason Comments Med Refill Encounter Details Date Type Department Care Team ([facility] st Contact Info) Description 07/23/2024 Refill [facility] [address] [place] [address] Aurelia Steiner NP [address] [place] [address] Social History Tobacco Use Types Packs/Day Years [...] t he electric, gas, oil or water [employer] threatened to shut off services in your [...] documented as of this encounter Care Teams Manager Stars Relationship Specialty Start Date End Date Aurelia Steiner NP [address] [place] [address] PCP - General Family Medicine 09/17/23 documented as of this encounter
--- OUTSIDE RECORDS SUMMARY | 2024-12-07 08:55 | XMS_ITS | Encounter Summary ---
Author Organization [employer] Address [address] [facility] [address] [place] [address] Care Team Providers Care Scaffold Setter Name Role Phone Aurelia Steiner NP Primary Care Provider [phone] Reason for Visit * Reason Comments Med Refill Encounter Details Date Type Department Care Team ([facility] st Contact Info) Description 06/10/2024 Refill [facility] [address] [place] [address] Aurelia Steiner NP [address] [place] [address] Social History Tobacco Use Types Packs/Day Years [...] t he electric, gas, oil or water [employer] threatened to shut off services in your [...] documented as of this encounter Care Teams Scaffold Setter Relationship Specialty Start Date End Date Aurelia Steiner NP [address] [place] [address] PCP - General Family Medicine 09/17/23 documented as of this encounter
--- OUTSIDE RECORDS SUMMARY | 2024-12-07 08:55 | XMS_ITS | Encounter Summary ---
Author Organization [employer] Address [address] [facility] [address] [place] [address] Care Team Providers Care Networker Name Role Phone Janel Kat MD Primary Care Pro vider Aurelia Steiner NP Primary Care Provider [phone] Encounter Details Date Type Department Care Team (Late st Contact Info) Description 07/16/[address] [facility] [address] [place], [place] [phone] Myah Millan LPN Social History Tobacco Use [...] on filedocumented in this encounter Care Teams Networker Relationship Specialty Start Date End Date Janel Kat MD [address] [place] [address] PCP - General Internal Medicine 02/17/23 09/16/23 Aurelia Steiner NP [address] [place], [place] [phone] PCP - General Family Medicine 09/17/23 documented as of this encounter
--- OUTSIDE RECORDS SUMMARY | 2024-12-07 08:55 | XMS_ITS | Encounter Summary ---
Author Organization [employer] Address [address] [facility] [address] [place] [address] Care Team Providers Care Bulb Grader Name Role Phone Aurelia Steiner NP Primary Care Provider [phone] Reason for Visit * Reason Onset Date Comments Reschedule 11/08/2023 Encounter Details Date Type Department Care Team (Late st Contact Info) Description 11/08/2023 Telephone [facility] [address] [place] [address] Aurelia Steiner NP [address] [place] [address] Reschedule Social History Tobacco Use Types Packs/Day [...] documented as of this encounter Care Teams Bulb Grader Relationship Specialty Start Date End Date Aurelia Steiner NP [address] [place] [address] PCP - General Family Medicine 09/17/23 documented as of this encounter
== END ==
LOC: HO.CARD 08:31
PROVIDERS: PCP Nurse Practitioner Family; Visit Provider Nurse Practitioner Family
DX: R01.1 Cardiac murmur, unspecified (principal); K21.9 Gastro-esophageal reflux disease without esophagitis; K59.04 Chronic idiopathic constipation; K22.4 Dyskinesia of esophagus
CPT/HCPCS: 93306; 99212

== ENCOUNTER → 2024-12-07 08:35 | Outpatient (BNV) | payer MEDICARE, SELFPAY | PROVIDERS: PCP Nurse Practitioner Family; Visit Provider Internal Medicine | DX: I42.2 Other hypertrophic cardiomyopathy (principal); I51.89 Other ill-defined heart diseases; I35.1 Nonrheumatic aortic (valve) insufficiency; I36.1 Nonrheumatic tricuspid (valve) insufficiency | CPT/HCPCS: 93306 ==

== ENCOUNTER 2024-12-07 11:30 | Outpatient (AMB) | payer MEDICARE, SELFPAY ==
--- NOTE | 2024-12-07 11:33 | A.OFFVIS_ITS ---
Vital Signs 12/07/24 11:34 Height 5 ft 1.5 in Weight 143 lb 4.807 oz BMI 26.6 BP 141/63 H Blood Pressure Location Rt brachial Position Sitting Pulse 63 Intake Visit Reasons: Follow up 4 months CIC Intake Note: Monica presents in the office as a 4 month follow up for CIC. CC: She states that she has constipation all the time. She does not like to take the medications so she does not take them when she is having BMs. She states prune juice helps her. Allergies iopamidol [From Isovue-M] Allergy (Mild, Verified 12/07/24 11:38) DEVELOPED THIGHTNESS IN THROAT Iodinated Contrast Media [CONTRAST, IV] Adverse Reaction (Intermediate, Verified 12/07/24 11:38) VOMITING HPI HPI Follow up 4 months CIC: Details: Assessment & Plan (1) Tubular adenoma of colon: Comment: 07/2024 scope= 3 TA's repeat in 3 years Code(s): D12.6 - Benign neoplasm of colon, unspecified Category: Medical (2) Chronic idiopathic constipation: Code(s): K59.04 - Chronic idiopathic constipation Category: Medical (3) GERD (gastroesophageal reflux disease): Code(s): K21.9 - Gastro-esophageal reflux disease without esophagitis Category: Medical Plan Greek #declines She is agreeable to a 3 year recall. The procedure was well tolerated. The results were explained and the patient is agreeable to the follow-up interval as stated. The bowel pattern has returned to normal. Education was provided to tell any 1st degree relatives about their findings to be sure that they are screened by age 45. Educated that they will be put on a recall list when it is time for their repeat scope but should they move out of state or away from the hospital they will need to remember along with their primary to repeat the procedure in a timely fashion to avoid any adverse complications. She continues on her Amitiza, famotidine and pantoprazole. She tells me she has been having worsening trouble with acid brash and heartburn especially when she lays down and at times it wakes her up in the middle of the night. This is despite being adherent to her acid reducing therapy. However she also tells me that she did not move her bowels for a solid 8 days after the colonoscopy! Apparently ongoing constipation continues to be a problem despite taking Amitiza 8 mcg twice a day. This could very well explain why she continues to have trouble with her heartburn so will increase her to the 24 micro g dose twice a day and she can decrease this to once a day if it gives her diarrhea. We will titrate this to affect her side effect. We will also get a barium swallow to evaluate whether or not there is a hiatal hernia contributing to this. There are no other medication changes preceding this worsening of symptoms. Return office visit in 8 weeks to evaluate her response. Orders: Orders FL barium swallow Today K21.9 - Gastro-esophageal reflux disease without esophagitis Medications: New lubiprostone (Amitiza) 24 mcg PO BID 60 caps 6RF 30 days K59.04 - Chronic idiopathic constipation Refilled famotidine 40 mg PO BEDTIME 90 tabs 4RF K21.9 - Gastro-esophageal reflux disease without esophagitis docusate sodium 100 mg PO BID 60 caps 6RF pantoprazole 40 mg PO DAILY 90 tabs 2RF K21.9 - Gastro-esophageal reflux disease without esophagitis Discontinued lubiprostone (Amitiza) Discontinued Reason: Doctor's Order 8 mcg PO BID 60 caps 6RF bisacodyl (Dulcolax (bisacodyl)) Discontinued Reason: Doctor's Order 10 mg (2 x 5 mg) PO BEDTIME 2 days 4 tabs 0RF BARIUM SWALLOW 10/24/24 FINDINGS: Oral administration of thick barium upright view there is normal propagation bolus from the oral cavity through the pharynx, esophagus into stomach without any evidence of obstruction, narrowing or stricture. On oral administration of solid food coated barium there is normal oral mastication with mild stagnation of solid food in the mid esophagus which suboptimally slowly. On following oral administration of water. No extrinsic compression of esophagus. On oral administration of thin barium in prone lying position there is good distention of esophagus without any intraluminal filling defect. Residual solid food administered during the upright view cleared very slowly with thin barium. No laryngeal penetration or aspiration seen. There is no gastroesophageal reflux seen except for a small hiatal hernia. There is evidence of previous cholecystectomy. FLUOROSCOPY TIME: 1 minute 40 seconds DOSE AREA PRODUCT: 1015 uGy-m2 (microgray-meter squared) FL/FL barium swallow IMPRESSION: Mild sluggish peristalsis in mid esophagus following oral administration of solid food coated with barium. Small hiatal hernia without any visible reflux TODAY'S VISIT Greek #declines We go over the results of the barium swallow which shows that she has slow esophageal motility. I explained to her that this happens with age and there is a lot we can do about it except to slow down, to our food thoroughly, cut it into smaller pieces, and keep water ready to help facilitate passage. Fortunately, she says that her swallowing has improved although she is not entirely why. She continues on her Amitiza 24 micro g twice a day, Colace twice a day pantoprazole and famotidine. She is satisfied now with her GI regimen. 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 Sister No problems noted. Social History Household Members: Children Household Members Other:: lives wirh son Housing: House Are you a primary personal care aid to a significant other at home: No Do you presently have visiting nurse or other home services: No Unable to assess alcohol history related to: Unknown Alcohol intake: former Patient Tobacco Use Status: Never used Tobacco service: No Current occupational status: retired and disabled Review of Systems Const Denies fatigue, Denies fever(s), Denies night sweats, Denies poor appetite and Denies weight loss ENT Reports Normal hearing present, Denies dental pain, Reports dysphagia, Denies hearing loss, Denies mouth pain, Denies odynophagia, Denies throat swelling, Denies tongue swelling and Reports other (Dentition adequate) Card Reports no additional complaints Resp Reports no additional complaints GI Details: Denies abdominal pain, Denies melena, Denies bloating, Denies hematochezia, Reports constipation, Denies GI cramping, Reports dysphagia, Denies excessive flatus, Denies early satiety, Reports heartburn, Denies diarrhea, Denies nausea, Denies odynophagia, Denies vomiting and Denies hematemesis Skin/Breast Denies pruritus, Denies lesions, Denies rash and Denies jaundice Neuro Reports Normal hearing present and Denies Abnormal speech present Endo Denies fatigue Aller/Immun Denies throat swelling and Denies tongue swelling Physical Exam Vital Signs: Last Vital Signs Pulse 63 12/07/24 11:34 BP 141/63 H 12/07/24 11:34 BMI result Body Mass Index 26.6 Const General: cooperative, no acute distress, well developed and well groomed Nutritional Appearance: average body habitus and well nourished Orientation/consciousness: oriented to person, oriented to place and oriented to time Limitations: language barrier HEENT Head: Yes normocephalic and Yes atraumatic Eyes General: appearance normal, both eyes and all related structures Pupils: Equal, round and reactive pupils present Neck Neck: Yes normal visual inspection and Yes no lymphadenopathy Thyroid: Thyroid normal Resp Effort & Inspection: normal respiratory effort and able to speak in complete sentences Auscultation: clear to auscultation bilaterally Cardio Rate: regular rate Rhythm: regular rhythm Heart sounds: Normal, physiologic split S2 sound present Peripheral pulses: radial pulses present and posterior tibial pulses present GI Inspection: No distended and No Abdominal panniculus present Palpation (GI): Soft to palpation, nontender, no guarding, not rigid and No hepatosplenomegaly present Percussion: Yes normal to percussion Auscultation: normal bowel sounds Rectal Exam - Female: deferred Skin General skin exam: no rashes or lesions noted, turgor normal, skin not dry, no jaundice, No spider nevi and no striae Rashes: no rashes Nails: normal Neuro General: oriented to person, oriented to place and oriented to time Cranial nerves: Yes Equal, round and reactive pupils present and Yes Normal hearing present Speech: No Abnormal speech present Extrem General: Yes normal to inspection, No clubbing, No cyanosis and No edema Psych Appearance: grossly normal and well kempt Mental Status: mental status grossly normal Speech and movement: Normal speech and movement present Affect: normal affect Attitude: cooperative Thought process: Normal thought process present and not confabulating Thought content: Normal thought content present Insight: Limited insight present (Psych) Judgement: Limited judgement present (Psych) Results Reviewed Results Reviewed: BARIUM SWALLOW 10/24/24 FINDINGS: Oral administration of thick barium upright view there is normal propagation bolus from the oral cavity through the pharynx, esophagus into stomach without any evidence of obstruction, narrowing or stricture. On oral administration of solid food coated barium there is normal oral mastication with mild stagnation of solid food in the mid esophagus which suboptimally slowly. On following oral administration of water. No extrinsic compression of esophagus. On oral administration of thin barium in prone lying position there is good distention of esophagus without any intraluminal filling defect. Residual solid food administered during the upright view cleared very slowly with thin barium. No laryngeal penetration or aspiration seen. There is no gastroesophageal reflux seen except for a small hiatal hernia. There is evidence of previous cholecystectomy. FLUOROSCOPY TIME: 1 minute 40 seconds DOSE AREA PRODUCT: 1015 uGy-m2 (microgray-meter squared) FL/FL barium swallow IMPRESSION: Mild sluggish peristalsis in mid esophagus following oral administration of solid food coated with barium. Small hiatal hernia without any visible reflux Assessment & Plan Assessment & Plan (1) GERD (gastroesophageal reflux disease): Code(s): K21.9 - Gastro-esophageal reflux disease without esophagitis Category: Medical (2) Chronic idiopathic constipation: Code(s): K59.04 - Chronic idiopathic constipation Category: Medical (3) Esophageal dysmotility: Comment: Slow esophageal motility on barium swallow Code(s): K22.4 - Dyskinesia of esophagus Category: Medical Plan Greek #declines We go over the results of the barium swallow which shows that she has slow esophageal motility. I explained to her that this happens with age and there is a lot we can do about it except to slow down, to our food thoroughly, cut it into smaller pieces, and keep water ready to help facilitate passage. Fortunately, she says that her swallowing has improved although she is not entirely why. She continues on her Amitiza 24 micro g twice a day, Colace twice a day pantoprazole and famotidine. She is satisfied now with her GI regimen. Return office visit in 6 month Medications: Refilled lubiprostone (Amitiza) 24 mcg PO BID 60 caps 6RF 30 days K59.04 - Chronic idiopathic constipation pantoprazole 40 mg PO DAILY 90 tabs 2RF K21.9 - Gastro-esophageal reflux disease without esophagitis docusate sodium 100 mg PO BID 60 caps 6RF famotidine 40 mg PO BEDTIME 90 tabs 4RF K21.9 - Gastro-esophageal reflux disease without esophagitis Coding Level of Care Code Est Pt Level 3 (64216) Diagnoses GERD (gastroesophageal reflux disease) K21.9 Chronic idiopathic constipation K59.04 Esophageal dysmotility K22.4
[2024-12-07 11:34] VITALS: BP 141/63; PULSE 63; BMI 26.6
--- OUTSIDE RECORDS SUMMARY | 2024-12-07 13:49 | XMS_ITS | Encounter Summary ---
Author Organization [employer] Address [address] [place] [address] [address] [place] [address] Care Team Providers Care Garage Door Opener Installer Name Role Phone Janel Kat MD Primary Care Pro vider Aurelia Steiner NP Primary Care Provider [phone] Reason for Visit * Reason Onset Date Comments Appointment Request 09/07/2023 Encounter Details Date Type Department Care Team (Late st Contact Info) Description 09/07/2023 Telephone [facility] MED[facility]INE [address] [place] [address] Janel Kat MD [address] [place] [address] Appointment Request Social History Tobacco Use Types [...] on filedocumented in this encounter Care Teams Garage Door Opener Installer Relationship Specialty Start Date End Date Janel Kat MD [address] [place] [address] PCP - General Internal Medicine 02/17/23 09/16/23 Aurelia Steiner NP [address] [place] [address] PCP - General Family Medicine 09/17/23 documented as of this encounter
--- OUTSIDE RECORDS SUMMARY | 2024-12-07 13:49 | XMS_ITS | Encounter Summary ---
Author Organization [employer] Address [address] [facility] [address] [place] [address] Care Team Providers Care Commercial Crabber Name Role Phone Aurelia Steiner NP Primary Care Provider [phone] Reason for Visit * Reason Onset Date Comments Chart Prep 12/05/2024 Encounter Details Date Type Department Care Team (Late st Contact Info) Description 12/05/2024 Telephone [facility] MEDICINE [address] [place] [address] Aurelia Steiner NP [address] [place] [address] Chart Prep Social History Tobacco Use Types [...] documented as of this encounter Care Teams Commercial Crabber Relationship Specialty Start Date End Date Aurelia Steiner NP [address] [place] [address] PCP - General Family Medicine 09/17/23 documented as of this encounter
--- OUTSIDE RECORDS SUMMARY | 2024-12-07 13:49 | XMS_ITS | Encounter Summary ---
Author Organization [employer] Address [address] [facility] [address] [address] Care Team Providers Care Track Watchman Name Role Phone Janel Kat MD Primary Care Pro vider Aurelia Steiner NP Primary Care Provider [phone] Encounter Details Date Type Department Care Team (Late st Contact Info) Description 07/16/2023 Orders Only [facility] [address] [place], [place] [phone] Myah Millan LPN Social History Tobacco Use [...] on filedocumented in this encounter Care Teams Track Watchman Relationship Specialty Start Date End Date Janel Kat MD [address] [place] [address] PCP - General Internal Medicine 02/17/23 09/16/23 Aurelia Steiner NP [address] [place], [place] [id number] PCP - General Family Medicine 09/17/23 documented as of this encounter
--- OUTSIDE RECORDS SUMMARY | 2024-12-07 13:49 | XMS_ITS | Encounter Summary ---
Author Organization [employer] Address [address] [facility] [address] [place] [address] Care Team Providers Care Project Engineer Chemicals Name Role Phone Aurelia Steiner RIKKI Primary Care Provider [phone] Encounter Details Date Type Department Care Team [...] documented as of this encounter Care Teams Project Engineer Chemicals Relationship Specialty Start Date End Date Aurelia Steiner NP [address] [place] [address] PCP - General Family Medicine 09/17/23 documented as of this encounter
--- OUTSIDE RECORDS SUMMARY | 2024-12-07 13:49 | XMS_ITS | Encounter Summary ---
Author Organization [employer] Address [address] [facility] [address] [place] [address] Care Team Providers Care Wood Tile Installation Helper Name Role Phone Aurelia Steiner RIKKI Primary Care Provider [phone] Reason for Visit * Reason Comments Follow-up Encounter Details Date Type Department Care Team ([facility] st Contact Info) Description 12/06/2024 10:00 AM EDT Office Visit [facility] MEDICINE [address] [place] [address] Jerel Mcmillan CNP [address] [place] [address] Dark urine (Primary Dx) Social History Tobacco Use Types Packs/Day Years Used Date Smoking Tobacco: Former Cigarettes Depression Answer Date Recorded Patient Health Questionnaire-9 Score 3 10/17/2024 Patient Health Questionnaire-9 Score 3 10/17/2024 Last PHQ-9: Questionnaire Data Not on file 0 10/17/2024 Housing Stability Answer Date Recorded What is your housing situation today? I have geteha payton 10/17/[address] you [...] to RTC if new or worsening sx. [facility] CALL CENTER CONSULTANT Attestation CALL CENTER CONSULTANT Resident Attestation: Patient was seen and evaluated [...] Media Lot # [id number] Lot# Expiration Date [id number] Urine 12/06/2024 10:2 9 AM EDT Jerel Mcmillan CNP POINT OF CARE TEST ENTER/ EDIT ORDERABLES Final Result documented in this encounter Visit Diagnoses Diagnosis Dark urine- Primary Other nonspecific finding on examination of urine documented in this encounter Additional Health Concerns Assessment Noted Time PHQ-9 Depression Total Score: 3 10/18/19 25 2:25 PM EST documented as of this encounter Care Teams Wood Tile Installation Helper Relationship Specialty Start Date End Date Aurelia Steiner NP [address] [place] [address] PCP - General Family Medicine 09/17/23 documented as of this encounter
--- OUTSIDE RECORDS SUMMARY | 2024-12-07 13:49 | XMS_ITS | Encounter Summary ---
Author Organization [employer] Address [address] [facility] [address] [place] [address] Care Team Providers Care Dryer And Washer Mechanic Name Role Phone Janel Kat MD Primary Care Pro vider Aurelia Steiner NP Primary Care Provider [phone] Reason for Visit * Reason Onset Date Comments ER Follow-up 09/10/2023 Encounter Details Date Type Department Care Team (Late st Contact Info) Description 09/10/2023 Telephone [facility] MEDICINE [address] [place] [address] Janel Kat MD [address] [place] [address] ER Follow-up Social History Tobacco Use Types [...] ED visit on : Date: 09/01 [place] [facility] Seen for: Fell down a flight of stairs Patient advised will forward to team nurse for follow up documented in this encounter Plan of Treatment Not on file documented as of this encounter Visit Diagnoses Not on filedocumented in this encounter Care Teams Dryer And Washer Mechanic Relationship Specialty Start Date End Date Janel Kat MD [address] [place] [address] PCP - General Internal Medicine 02/17/23 09/16/23 Aurelia Steiner NP [address] [place] [address] PCP - General Family Medicine 09/17/23 documented as of this encounter
--- OUTSIDE RECORDS SUMMARY | 2024-12-07 13:50 | XMS_ITS | Encounter Summary ---
Author Organization [employer] Address [address] [facility] [address] [place] [address] Care Team Providers Care Actuary Name Role Phone Aurelia Steiner NP Primary Care Provider [phone] Reason for Visit * Reason Comments Med Refill Encounter Details Date Type Department Care Team ([facility] st Contact Info) Description 06/10/2024 Refill [facility] MED[facility]INE [address] [place] [address] Aurelia Steiner NP [address] [place] [address] Social History Tobacco Use Types Packs/Day Years [...] t he electric, gas, oil or water [employer] threatened to shut off services in your [...] documented as of this encounter Care Teams Actuary Relationship Specialty Start Date End Date Aurelia Steiner NP [address] [place] [address] PCP - General Family Medicine 09/17/23 documented as of this encounter
--- OUTSIDE RECORDS SUMMARY | 2024-12-07 13:50 | XMS_ITS | Encounter Summary ---
Author Organization [employer] Address [address] [facility] [address] [place] [address] Care Team Providers Care Marketing Project Manager Name Role Phone Janel Kat MD Primary Care Pro vider Aurelia Steiner NP Primary Care Provider [phone] Reason for Visit * Reason Comments Med Refill Encounter Details Date Type Department Care Team (Late st Contact Info) Description 07/16/2023 Refill [facility] MEDICINE [address] [place], [place] [phone] MitchellSary FNP [address] [place], [place] [phone] Social History Tobacco Use Types Packs/Day Years [...] on filedocumented in this encounter Care Teams Marketing Project Manager Relationship Specialty Start Date End Date Janel Kat MD [address] [place] [id number] PCP - General Internal Medicine 02/17/23 09/16/23 Aurelia Steiner NP [address] [place] [address] PCP - General Family Medicine 09/17/23 documented as of this encounter
--- OUTSIDE RECORDS SUMMARY | 2024-12-07 13:50 | XMS_ITS | Encounter Summary ---
Author Organization [employer] Address [address] [facility] [address] [place] [address] Care Team Providers Care Photonics Engineering Technician Name Role Phone Aurelia Steiner NP Primary Care Provider [phone] Reason for Visit * Reason Onset Date Comments Reschedule 11/08/2023 Encounter Details Date Type Department Care Team (Late st Contact Info) Description 11/08/2023 Telephone [facility] MEDICINE [address] [place] [address] Aurelia Steiner NP [address] [place] [address] Reschedule Social History Tobacco Use Types Packs/Day [...] documented as of this encounter Care Teams Photonics Engineering Technician Relationship Specialty Start Date End Date Aurelia Steiner NP [address] [place] [address] PCP - General Family Medicine 09/17/23 documented as of this encounter
--- OUTSIDE RECORDS SUMMARY | 2024-12-07 13:50 | XMS_ITS | Encounter Summary ---
Author Organization [employer] Address [address] [facility] [address] [place] [address] Care Team Providers Care Repairer Shoe Sticks Name Role Phone Aurelia Steiner NP Primary Care Provider [phone] Reason for Visit * Reason Comments Med Refill Encounter Details Date Type Department Care Team ([facility] st Contact Info) Description 07/16/2024 Refill [facility] MEDICINE [address] [place] [address] Aurelia Steiner NP [address] [place] [address] Social History Tobacco Use Types Packs/Day Years [...] t he electric, gas, oil or water [employer] threatened to shut off services in your [...] documented as of this encounter Care Teams Repairer Shoe Sticks Relationship Specialty Start Date End Date Aurelia Steiner NP [address] [place] [address] PCP - General Family Medicine 09/17/23 documented as of this encounter
--- OUTSIDE RECORDS SUMMARY | 2024-12-07 13:50 | XMS_ITS | Encounter Summary ---
Author Organization [employer] Address [address] [facility] [address] [place] [address] Care Team Providers Care Lane Attendant Name Role Phone Aurelia Steiner NP Primary Care Provider [phone] Reason for Visit * Reason Comments Med Refill Encounter Details Date Type Department Care Team ([facility] st Contact Info) Description 07/23/2024 Refill [facility] MEDICINE [address] [place] [address] Aurelia Steiner NP [address] [place] [address] Social History Tobacco Use Types Packs/Day Years [...] t he electric, gas, oil or water [employer] threatened to shut off services in your [...] documented as of this encounter Care Teams Lane Attendant Relationship Specialty Start Date End Date Aurelia Steiner NP [address] [place] [address] PCP - General Family Medicine 09/17/23 documented as of this encounter
--- OUTSIDE RECORDS SUMMARY | 2024-12-07 13:50 | XMS_ITS | Encounter Summary ---
Author Organization [employer] Address [address] [facility] [address] [place] [address] Care Team Providers Care Residential Coordinator Name Role Phone Janel Kat MD Primary Care Pro vider Aurelia Steiner NP Primary Care Provider [phone] Reason for Visit * Reason Onset Date Comments Nurse Triage 09/16/2023 Encounter Details Date Type Department Care Team (Late st Contact Info) Description 09/16/2023 Telephone [facility] MEDICINE [address] [place] [address] Janel Kat MD [address] [place] [address] Nurse Triage Social History Tobacco Use Types [...] Please assist with obtaining ER notes from [facility] visit on 09/01/23 following fall. Pt has appt 09/17/23 at 1pm with Aurelia QIU. * Telephone Encounter - Maribel García RN - 09/16/2023 9:08 AM EST Call to deep Brooks seen at [facility] 09/01/23 following a fall from stairs. Per [...] 09/17/2023 1:00 PM Aurelia Steiner NP MEDICINE [facility] Video visit offer not recorded Positive Triage [...] Severe pain now, pt was seen at [facility] on 09/01 for falling down the stairs The caller accepted this outcome Please contact pt at [phone] documented in this encounter Plan of Treatment Not on file documented as of this encounter Visit Diagnoses Not on filedocumented in this encounter Care Teams Residential Coordinator Relationship Specialty Start Date End Date Janel Kat MD [address] [place] [address] PCP - General Internal Medicine 02/17/23 09/16/23 Aurelia Steiner NP [address] [place] [address] PCP - General Family Medicine 09/17/23 documented as of this encounter
--- OUTSIDE RECORDS SUMMARY | 2024-12-07 13:50 | XMS_ITS | Clinical Summary ---
Author Organization [employer] Address [address] [facility] 7t [place] [address] Care Team Providers Care Tool And Fixture Repairer Name Role Phone Aurelia Steiner RIKKI Primary Care Provider [phone] Allergies No known active allergies Medications triamcinolone [...] Description 12/06/2024 10:00 AM EDT Office Visit [facility] MEDICINE [address] [place] [address] Jerel Mcmillan CNP Dark urine (Primary Dx) 12/06/2024 Travel 12/05/2024 Telephone [facility] [address] [place] [address] Aurelia Steiner NP Chart Prep 12/01/2024 Telephone [facility] [address] [place] [address] Aurelia Steiner NP Nurse Triage 10/23/2024 Refill [facility] [address] [place] [address] Aurelia Steiner NP 10/18/2024 Telephone [facility] [address] [place] [address] Krys Caldwell MA new order for echo 10/18/2024 Orders Only [facility] [address] [place] [address] Aurelia Steiner NP Murmur (Primary Dx) 10/17/2024 1:45 PM EST Office Visit [facility] [address] [place] [address] Aurelia Steiner NP Primary hypertension (Primary Dx); Aortic valve insufficiency, etiology of cardiac valve disease unspecified; Dietary counseling; Exercise counseling; Abnormal Romberg test 10/17/2024 Travel 10/10/2024 Telephone [facility] [address] [place] [address] Krys Caldwell MA Chart Prep 10/06/2024 Patient Outreach [facility] [address] [place], [place] [phone] Aurelia Steiner NP Pre-visit Planning ([facility] unable to reach [facility] ) from Last 3 Months Immunizations [...] Media Lot # [id number] Lot# Expiration Date [id number] Urine 12/06/2024 10:2 9 AM EDT [facility] POINT OF CARE TEST ENTER/ EDIT ORDERABLES Final Result * Mr Brain w/ and w/o Contrast (10/25/2024 1:51 PM EDT) Anatomical Region Laterality Modality Brain Magnetic Resonan ce 10/25/2024 1:51 PM EDT Narrative 10/26/2024 8:50 AM EDT ? [facility] ?[address] ?[place] [address] ? Magnetic Resonance Report ? Signed ? Patient: Suarez,Monica ?MR#: [id number] ?? 3 ? : 1950 ?Acct:[id number] ? Age/Sex: 74 / F ?ADM Date: 10/25/24 ? Loc: HO.MRI ? Attending Dr: Aurelia Steiner HEADING MATCHER AND ASSEMBLER ? Ordering Physician: Aurelia Steiner NP ?? Date of Service: 10/25/24 ?? Procedure(s): MR head/brain wo/w con ?? Accession Number(s): [id number] ? cc: Aurelia Steiner NP; Janel Kat [...] DD/ 1351 ? TD/TT: 10/25/24 1423 ? Irrigation Equipment Installer: ? Procedure Note Kavya Barboza - 10/26/[address] [address] Magnetic Resonance Report Signed Patient: Monica SuarezMR#: [id number] 3 : 1950cct:[id number] Age/Sex: 74 / FADM Date: 10/25/24 Loc: HO.MRI Attending Dr: Aurelia Steiner HEADING MATCHER AND ASSEMBLER Ordering Physician: Aurelia Steiner NP Date of Service: 10/25/24 Procedure(s): MR head/brain wo/w con Accession Number(s): [id number] cc: Aurelia Steiner HEADING MATCHER AND ASSEMBLER; Janel Kat MD EXAMINATION: MR BRAIN WITHOUT [...] 10/26/24 0847 DD/ 1351 TD/TT: 10/25/24 1423 Irrigation Equipment Installer: us Aurelia Obdulia HEADING MATCHER AND ASSEMBLER IMG MRI PROCEDURES Edited Result - Final * FL Esophagus Barium Swallow (10/24/2024 8:34 AM EDT) Anatomical Region Laterality Modality Head, Neck Radiographic [place] ging 10/24/2024 8:34 AM EDT Narrative 10/24/2024 12:01 PM EDT ? [facility] ?[address] ?[place] [address] ? Fluoroscopy Report ? Signed ? Patient: Suarez,Monica ?MR#: [id number] ?? 3 ? : 1950 ?Acct:[id number] ? Age/Sex: 74 / F ?ADM Date: 10/24/24 ? Loc: HO.XRAY ? Attending Dr: Samantha WILLETT ? Ordering Physician: Samantha Tran ?? Date of Service: 10/24/24 ?? Procedure(s): FL barium swallow ?? Accession Number(s): [id number] ? cc: Samantha Tran; Janel Kat MD [...] DD/ 0834 ? TD/TT: 10/24/24 0908 ? Irrigation Equipment Installer: MSM ? Procedure Note Kavya Barboza - 10/24/2024 [place] [address] Fluoroscopy Report Signed Patient: Florian Suarez#: [id number] 3 : 1950cct:[id number] Age/Sex: 74 / FADM Date: 10/24/24 Loc: KATHIAY Attending Dr: Samantha WILLETT Ordering Physician: Samantha Tran Date of Service: 10/24/24 Procedure(s): FL barium swallow Accession Number(s): [id number] cc: Samantha Tran; Janel Kat MD EXAMINATION: [...] 10/24/24 1158 DD/ 0834 TD/TT: 10/24/24 0908 Irrigation Equipment Installer: [facility] External Provider IMG FLU OROSCOPY PROCEDURES Final Result * (ABNORMAL) Lipid Panel, Standard (02/10/2024 11:41 AM EDT) Triglycerides 145 <150 mg/dL [facility] Comment:Desirable Triglyceri de: less than 150 mg/dLBorderline High Triglyceride 150-199 mg/dLHigh Triglyceride: 200-499 mg/dLVery High Triglyceride: greater than or equal to 5OO mg/dL Cholesterol 141 <200 mg/dL [facility] Comment:Desirable Cholestero l: less than 200 mg/dLBorderline High Cholesterol: 200-239 mg/dLHigh Cholesterol: greater than 239 mg/dL LDL Cholesterol Calculated 78 <100 mg/dL [facility] Comment:Desirable LDL: less than 100 mg/dLNear Optimal/Above Optimal LDL: 110- 129 mg/dLBorderline High LDL: 130-159 mg/dLHigh LDL: 160-189 mg/dLVery High LDL: greater than or equal to 190 mg/dL HDL Cholesterol 34(L) >40 mg/dL [facility] Comment:Desirable HDL: great er than 40 mg/dL Note: This HDL assay may give artificially low results in patients with liver disease. Blood Venous blood specimen / Unknown 02/10/2024 11:41 AM EDT 02/10/2024 1:46 PM EDT us Aurelia Steiner HEADING MATCHER AND ASSEMBLER LAB BLOOD ORDERABLES Final Resul t [facility] [address] [place] [address] [phone] * BI Mammogram Screening Tomosynthesis Bilateral (11/02/2023 11:00 AM EDT) Anatomical Region Laterality Modality Breast Bilateral Mammography 11/02/2023 11:0 0 AM EDT Narrative 11/05/2023 1:13 PM EDT ? [facility] ? [address] ?[place] [address] ? Mammography Report ? Signed ? Patient: Suarez,Monica ?MR#: [id number] ?? 3 ? : 1950 ?Acct:[id number] ? Age/Sex: 73 / F ?ADM Date: 03/19/24 ? Loc: HO.MAMMO ? Attending Dr: Janel Olson MD ? Ordering Physician: Janel Kat MD ?Re ?? sults: 2Benign Findings ? Date of Service: 11/02/23 ?Follow Up: 1 Year From Orig ?? inal Mammogram ? Procedure(s): MM tomosynthesis screening BI ?? Accession Number(s): [id number] ? cc: Janel Kat MD ? EXAMINATION: [...] 1309 ? DD/ 1100 ? TD/TT: ? Irrigation Equipment Installer: ? Procedure Note Donotuseinterpreter, Image - 11/05/2023 [facility] [address] [place] [address] Dr. Og, JIM [address] Mammography Report Signed Patient: Florian Suarez#: [id number] 3 : 1950cct:[id number] Age/Sex: 73 / FADM Date: 11/02/23 Loc: HO.MAMMO Attending Dr: Janel Olson MD Ordering Physician: Janel Kat sults: 2Benign Findings Date of Service: 11/02/23Follow Up: 1 Year From Orig inal Mammogram Procedure(s): MM tomosynthesis screening BI Accession Number(s): [id number] cc: Janel Kat MD EXAMINATION: MM SCREENING [...] in OV> 11/05/23 1309 DD/ 1100 TD/TT: Irrigation Equipment Installer[facility] Olson MD IMG BI PROCEDURES Final Result from Last 3 Months or Most Recently Relevant to Health Maintenance Insurance Member Subscriber Plan / Payer (Ef fective 2022-Present) Name:SuarezJose MiguelMonica Relation to Subscriber:Self Name:Suarez, Monica Payer ID:Not on file Group ID:[id number] Type:Not on file Address: [address] [address] Care Teams Tool And Fixture Repairer Relationship Specialty Start Date End Date Aurelia Steiner NP [address] [place] [address] PCP - General Family Medicine 09/17/23
== END 2024-12-07 12:40 | disposition home or self-care (01) ==
LOC: HO.HGI 11:31
PROVIDERS: PCP Nurse Practitioner Family; Visit Provider Nurse Practitioner
DX: K21.9 Gastro-esophageal reflux disease without esophagitis (principal); K59.04 Chronic idiopathic constipation; K22.4 Dyskinesia of esophagus
CPT/HCPCS: 99213

== ENCOUNTER 2024-12-08 09:43 | Outpatient (AMB) | payer MEDICARE, SELFPAY ==
--- NOTE | 2024-12-08 09:54 | A.OFFVIS_ITS ---
Vital Signs 12/08/24 10:02 Height 5 ft 1.5 in Weight 146 lb 8 oz BMI 27.2 BP 158/70 H Blood Pressure Location Lt brachial Position Sitting Pulse 61 Intake Visit Reasons: YRLY BREAST EXAM Intake Note: Patient is seen in office for yearly breast exam. Pt c/o: mm: 11/02/23 (DUE) Security Systems Installer Required: No Residential Roofer Helper: Residential Roofer Helper Present Accompanied by: Self / Same As Patient Allergies iopamidol [From Isovue-M] Allergy (Mild, Verified 12/07/24 11:38) DEVELOPED THIGHTNESS IN THROAT Iodinated Contrast Media [CONTRAST, IV] Adverse Reaction (Intermediate, Verified 12/07/24 11:38) VOMITING Medication List - Last Reconciled 12/11/24 by Saul Centeno MD atenolol 1 tab PO DAILY cyanocobalamin (vitamin B-12) 250 mcg PO DAILY docusate sodium 100 mg PO BID famotidine 40 mg PO BEDTIME hydrochlorothiazide 1 tab PO DAILY lisinopril 20 mg PO DAILY lubiprostone (Amitiza) 24 mcg PO BID 30 days pantoprazole 40 mg PO DAILY HPI Comments Details: Monica Suarez? is a 74-year-old female patient, former patient of Dr. Law presenting for breast cancer follow-up.? She underwent a left breast lumpectomy with left axillary dissection on 07/18/2015.? Pathology revealed infiltrating ductal carcinoma grade 3 1.7 cm in diameter, ER / WV positive, HER2 Antonio 3+.? Six of 9? left axillary lymph nodes were positive for metastatic carcinoma? ([id number],? stage IIIA ).? She was evaluated by Dr. Parker and treated with 6 cycles of Taxotere, Cytoxan, Herceptin, and pertuzumab.? She completed a year of Herceptin in August 2016 in then started letrozole.? This was stopped after developing severe arthralgias.? After a month she was started on? anastrozole which she is tolerating well. ? Radiation therapy to the left breast was completed on February 2016. Her most recent mammogram of 11/02/2023 revealed no mammographic evidence of malignancy (BIRAD 2). Routine annual mammogram is recommended in 1 year and is now due. She denies any new symptoms in either breast. 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 Sister No problems noted. Social History Household Members: Children Household Members Other:: lives wirh son Housing: House Are you a primary client care coordinator to a significant other at home: No Do you presently have visiting nurse or other home services: No Unable to assess alcohol history related to: Unknown Alcohol intake: former Patient Tobacco Use Status: Never used Tobacco service: No Current occupational status: retired and disabled Review of Systems Const All systems reviewed & are unremarkable except as noted in HPI and below Card Denies chest pain, Denies irregular heart rhythm and Denies dyspnea Resp Denies cough, Denies excessive phlegm production and Denies dyspnea GI Reports no additional complaints Denies nipple discharge Skin/Breast Denies breast swelling, Denies breast skin changes, Reports breast pain, Denies breast mass, Denies change in breast shape and Denies nipple discharge Bobby/Lymph Denies lymphadenopathy Physical Exam Vital Signs: Last Vital Signs Pulse 61 12/08/24 10:02 BP 158/70 H 12/08/24 10:02 BMI result Body Mass Index 27.2 Const General: cooperative, healthy appearing, comfortable, no acute distress and well developed HEENT Head: Yes normocephalic and Yes atraumatic Chest Other: Left breast: No new skin change, no nipple retraction, no nipple discharge, no palpable mass, no enlarged lymph nodes, well-healed incision upper outer quadrant. Right breast: No skin change, no nipple retraction, no nipple discharge, no palpable mass, no enlarged lymph nodes GI Inspection: Yes normal to inspection Skin General skin exam: no rashes or lesions noted Extrem Other: No significant arm edema identified. 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 Patient's examination today reveals no evidence of recurrence disease in either breast. Recent mammogram in 11/02/2023 revealed no suspicious findings (BI-RADS 2 ). She is now due for a mammogram and an order has been placed. I recommended follow-up examination in 1 year, sooner PRN. 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
--- OUTSIDE RECORDS SUMMARY | 2024-12-08 09:59 | XMS_ITS | Encounter Summary ---
Author Organization [employer] Address [address] [facility] 7t [place] [address] Care Team Providers Care Clam Bed Laborer Name Role Phone Aurelia Steiner RIKKI Primary Care Provider [phone] Encounter Details Date Type Department Care Team [...] documented as of this encounter Care Teams Clam Bed Laborer Relationship Specialty Start Date End Date Aurelia Steiner NP [address] [place] [address] PCP - General Family Medicine 09/17/23 documented as of this encounter
--- OUTSIDE RECORDS SUMMARY | 2024-12-08 09:59 | XMS_ITS | Encounter Summary ---
Author Organization [employer] Address [address] [facility] [address] [place] [address] Care Team Providers Care Neck Skewer Name Role Phone Aurelia Steiner NP Primary Care Provider [phone] Reason for Visit * Reason Onset Date Comments Chart Prep 12/05/2024 Encounter Details Date Type Department Care Team (Late st Contact Info) Description 12/05/2024 Telephone [facility] MEDICINE [address] [place] [address] Aurelia Steiner NP [address] [place] [address] Chart Prep Social History Tobacco Use Types [...] documented as of this encounter Care Teams Neck Skewer Relationship Specialty Start Date End Date Aurelia Steiner NP [address] [place] [address] PCP - General Family Medicine 09/17/23 documented as of this encounter
--- OUTSIDE RECORDS SUMMARY | 2024-12-08 09:59 | XMS_ITS | Encounter Summary ---
Author Organization [employer] Address [address] [facility] [address] [place] [address] Care Team Providers Care Inside Sales Supervisor Name Role Phone Janel Kat MD Primary Care Pro vider Aurelia Steiner NP Primary Care Provider [phone] Encounter Details Date Type Department Care Team (Late st Contact Info) Description 07/16/2023 Orders Only [facility] [address] [place], [place] [phone] Myah Millan LPN Social History Tobacco Use [...] on filedocumented in this encounter Care Teams Inside Sales Supervisor Relationship Specialty Start Date End Date Janel Kat MD [address] [place] [address] PCP - General Internal Medicine 02/17/23 09/16/23 Aurelia Steiner NP [address] [place], [place] [phone] PCP - General Family Medicine 09/17/23 documented as of this encounter
--- OUTSIDE RECORDS SUMMARY | 2024-12-08 09:59 | XMS_ITS | Encounter Summary ---
Author Organization [employer] Address [address] [place] [address] [address] [place] [address] Care Team Providers Care Oracle Fusion Middleware Developer Name Role Phone Janel Kat MD Primary Care Pro vider Aurelia Steiner NP Primary Care Provider [phone] Reason for Visit * Reason Onset Date Comments Appointment Request 09/07/2023 Encounter Details Date Type Department Care Team (Late st Contact Info) Description 09/07/2023 Telephone [facility] MED[facility]INE [address] [place] [address] Janel Kat MD [address] [place] [address] Appointment Request Social History Tobacco Use Types [...] on filedocumented in this encounter Care Teams Oracle Fusion Middleware Developer Relationship Specialty Start Date End Date Janel Kat MD [address] [place] [address] PCP - General Internal Medicine 02/17/23 09/16/23 Aurelia Steiner NP [address] [place] [address] PCP - General Family Medicine 09/17/23 documented as of this encounter
--- OUTSIDE RECORDS SUMMARY | 2024-12-08 09:59 | XMS_ITS | Encounter Summary ---
Author Organization [employer] Address [address] [facility] [address] [place] [address] Care Team Providers Care Tape Sewer Name Role Phone Aurelia Steiner RIKKI Primary Care Provider [phone] Reason for Visit * Reason Comments Follow-up Encounter Details Date Type Department Care Team ([facility] st Contact Info) Description 12/06/2024 10:00 AM EDT Office Visit [facility] MEDICINE [address] [place] [address] Jerel Mcmillan CNP [address] [place] [address] Dark urine (Primary Dx) Social History Tobacco [...] to RTC if new or worsening sx. [facility] SCALE ASSEMBLY SET UP WORKER Attestation SCALE ASSEMBLY SET UP WORKER Resident Attestation: Patient was seen and evaluated [...] Media Lot # [id number] Lot# Expiration Date [id number] Urine 12/06/2024 10:2 9 AM EDT Jerel Mcmillan CNP POINT OF CARE TEST ENTER/ EDIT ORDERABLES Final Result documented in this encounter Visit Diagnoses Diagnosis Dark urine- Primary Other nonspecific finding on examination of urine documented in this encounter Additional Health Concerns Assessment Noted Time PHQ-9 Depression Total Score: 3 10/18/19 25 2:25 PM EST documented as of this encounter Care Teams Tape Sewer Relationship Specialty Start Date End Date Aurelia Steiner NP [address] [place] [address] PCP - General Family Medicine 09/17/23 documented as of this encounter
--- OUTSIDE RECORDS SUMMARY | 2024-12-08 10:00 | XMS_ITS | Clinical Summary ---
Author Organization [employer] Address [address] [facility] 7t [place] [address] Care Team Providers Care Apron Trimmer Name Role Phone Aurelia Steiner RIKKI Primary Care Provider [phone] Allergies No known active allergies Medications triamcinolone [...] Description 12/06/2024 10:00 AM EDT Office Visit [facility] [address] [place] [address] Jerel Mcmillan CNP Dark urine (Primary Dx) 12/06/2024 Travel 12/05/2024 Telephone [facility] [address] [place] [address] Aurelia Steiner NP Chart Prep 12/01/2024 Telephone [facility] [address] [place] [address] Aurelia Steiner NP Nurse Triage 10/23/2024 Refill [facility] [address] [place] [address] Aurelia Steiner NP 10/18/2024 Telephone [facility] [address] [place] [address] Krys Caldwell MA new order for echo 10/18/2024 Orders Only [facility] [address] [place] [address] Aurelia Steiner NP Murmur (Primary Dx) 10/17/2024 1:45 PM EST Office Visit [facility] [address] [place] [address] Aurelia Steiner NP Primary hypertension (Primary Dx); Aortic valve insufficiency, etiology of cardiac valve disease unspecified; Dietary counseling; Exercise counseling; Abnormal Romberg test 10/17/2024 Travel 10/10/2024 Telephone [facility] [address] [place] [address] Krys Caldwell MA Chart Prep 10/06/2024 Patient Outreach [facility] [address] [place], [place] [phone] Aurelia Steiner NP Pre-visit Planning ([facility] unable to reach [facility] ) from Last 3 Months [...] Media Lot # [id number] Lot# Expiration Date [id number] Urine 12/06/2024 10:2 9 AM EDT [facility] POINT OF CARE TEST ENTER/ EDIT ORDERABLES Final Result * Mr Brain w/ and w/o Contrast (10/25/2024 1:51 PM EDT) Anatomical Region Laterality Modality Brain Magnetic Resonan ce 10/25/2024 1:51 PM EDT Narrative 10/26/2024 8:50 AM EDT ? [facility] ?[address] ?[place] [address] ? Magnetic Resonance Report ? Signed ? Patient: Suarez,Monica ?MR#: [id number] ?? 3 ? : 1950 ?Acct:[id number] ? Age/Sex: 74 / F ?ADM Date: 10/25/24 ? Loc: HO.MRI ? Attending Dr: Aurelia Steiner BAR STEWARD ? Ordering Physician: Aurelia Steiner NP ?? Date of Service: 10/25/24 ?? Procedure(s): MR head/brain wo/w con ?? Accession Number(s): [id number] ? cc: Aurelia Steiner NP; Janel Kat [...] 08:47 AM EDT RP ? Dictated By: ?Cleso Barth MD ? Signed By: ?<Electronically signed by Ceslo Barth MD in OV> ?10/26/24 0847 ? DD/ 1351 ? TD/TT: 10/25/24 1423 ? Psychiatric Social Worker Supervisor: ? Procedure Note Kavya Barboza - 10/26/[address] [address] Magnetic Resonance Report Signed Patient: Monica SuarezMR#: [id number] 3 : 1950cct:[id number] Age/Sex: 74 / FADM Date: 10/25/24 Loc: HO.MRI Attending Dr: Aurelia Steiner BAR STEWARD Ordering Physician: Aurelia Steiner NP Date of Service: 10/25/24 Procedure(s): MR head/brain wo/w con Accession Number(s): [id number] cc: Aurelia Steiner BAR STEWARD; Janel Kat MD EXAMINATION: MR BRAIN WITHOUT [...] 10/26/24 0847 DD/ 1351 TD/TT: 10/25/24 1423 Psychiatric Social Worker Supervisor: us Aurelia Obdulia BAR STEWARD IMG MRI PROCEDURES Edited Result - Final * FL Esophagus Barium Swallow (10/24/2024 8:34 AM EDT) Anatomical Region Laterality Modality Head, Neck Radiographic [place] ging 10/24/2024 8:34 AM EDT Narrative 10/24/2024 12:01 PM EDT ? [facility] ?[address] ?[place] [address] ? Fluoroscopy Report ? Signed ? Patient: Suarez,Monica ?MR#: [id number] ?? 3 ? : 1950 ?Acct:[id number] ? Age/Sex: 74 / F ?ADM Date: 10/24/24 ? Loc: HO.XRAY ? Attending Dr: Samantha WILLETT ? Ordering Physician: Samantha Tran ?? Date of Service: 10/24/24 ?? Procedure(s): FL barium swallow ?? Accession Number(s): [id number] ? cc: Samantha Tran; Janel Kat MD [...] DD/ 0834 ? TD/TT: 10/24/24 0908 ? Psychiatric Social Worker Supervisor: MSM ? Procedure Note Kavya Barboza - 10/24/2024 [place] [address] Fluoroscopy Report Signed Patient: Florian Suarez#: [id number] 3 : 1950cct:[id number] Age/Sex: 74 / FADM Date: 10/24/24 Loc: KATHIAY Attending Dr: Samantha WILLETT Ordering Physician: Samantha Tran Date of Service: 10/24/24 Procedure(s): FL barium swallow Accession Number(s): [id number] cc: Samantha Tran; Janel Kat MD EXAMINATION: [...] 10/24/24 1158 DD/ 0834 TD/TT: 10/24/24 0908 Psychiatric Social Worker Supervisor: [facility] External Provider IMG FLU OROSCOPY PROCEDURES Final Result * (ABNORMAL) Lipid Panel, Standard (02/10/2024 11:41 AM EDT) Triglycerides 145 <150 mg/dL [facility] Comment:Desirable Triglyceri de: less than 150 mg/dLBorderline High Triglyceride 150-199 mg/dLHigh Triglyceride: 200-499 mg/dLVery High Triglyceride: greater than or equal to 5OO mg/dL Cholesterol 141 <200 mg/dL [facility] Comment:Desirable Cholestero l: less than 200 mg/dLBorderline High Cholesterol: 200-239 mg/dLHigh Cholesterol: greater than 239 mg/dL LDL Cholesterol Calculated 78 <100 mg/dL [facility] Comment:Desirable LDL: less than 100 mg/dLNear Optimal/Above Optimal LDL: 110- 129 mg/dLBorderline High LDL: 130-159 mg/dLHigh LDL: 160-189 mg/dLVery High LDL: greater than or equal to 190 mg/dL HDL Cholesterol 34(L) >40 mg/dL [facility] Comment:Desirable HDL: great er than 40 mg/dL Note: This HDL assay may give artificially low results in patients with liver disease. Blood Venous blood specimen / Unknown 02/10/2024 11:41 AM EDT 02/10/2024 1:46 PM EDT us Aurelia Steiner BAR STEWARD LAB BLOOD ORDERABLES Final Resul t [facility] [address] [place] [address] [phone] * BI Mammogram Screening Tomosynthesis Bilateral (11/02/2023 11:00 AM EDT) Anatomical Region Laterality Modality Breast Bilateral Mammography 11/02/2023 11:0 0 AM EDT Narrative 11/05/2023 1:13 PM EDT ? [facility] ? [address] ?[place] [address] ? Mammography Report ? Signed ? Patient: Suarez,Monica ?MR#: [id number] ?? 3 ? : 1950 ?Acct:[id number] ? Age/Sex: 73 / F ?ADM Date: 03/19/24 ? Loc: HO.MAMMO ? Attending Dr: Janel Olson MD ? Ordering Physician: Janel Kat MD ?Re ?? sults: 2Benign Findings ? Date of Service: 11/02/23 ?Follow Up: 1 Year From Orig ?? inal Mammogram ? Procedure(s): MM tomosynthesis screening BI ?? Accession Number(s): [id number] ? cc: Janel Kat MD ? EXAMINATION: [...] 1309 ? DD/ 1100 ? TD/TT: ? Psychiatric Social Worker Supervisor: ? Procedure Note Donotuseinterpreter, Image - 11/05/2023 [facility] [address] [place] [address] Dr. Og, JIM [address] Mammography Report Signed Patient: Florian Suarez#: [id number] 3 : 1950cct:[id number] Age/Sex: 73 / FADM Date: 11/02/23 Loc: HO.MAMMO Attending Dr: Janel Olson MD Ordering Physician: Janel Kat sults: 2Benign Findings Date of Service: 11/02/23Follow Up: 1 Year From Orig inal Mammogram Procedure(s): MM tomosynthesis screening BI Accession Number(s): [id number] cc: Janel Kat MD EXAMINATION: MM SCREENING [...] in OV> 11/05/23 1309 DD/ 1100 TD/TT: Psychiatric Social Worker Supervisor: [facility] Center[facility]ressaPatricia Olson MD IMG BI PROCEDURES Final Result from Last 3 Months or Most Recently Relevant to Health Maintenance Insurance Member Subscriber Plan / Payer (Ef fective 2022-Present) Name:SuarezJose MiguelMonica Relation to Subscriber:Self Name:Suarez, Monica Payer ID:Not on file Group ID:[id number] Type:Not on file Address: [address] [address] [address] Care Teams Apron Trimmer Relationship Specialty Start Date End Date Aurelia Steiner NP [address] [place] [address] PCP - General Family Medicine 09/17/23
--- OUTSIDE RECORDS SUMMARY | 2024-12-08 10:00 | XMS_ITS | Encounter Summary ---
Author Organization [employer] Address [address] [facility] [address] [place] [address] Care Team Providers Care Esthetician Name Role Phone Aurelia Steiner NP Primary Care Provider [phone] Reason for Visit * Reason Comments Med Refill Encounter Details Date Type Department Care Team ([facility] st Contact Info) Description 07/23/[address] [facility] [address] [place] [address] Aurelia Steiner NP [address] [place] [address] Social History Tobacco Use Types Packs/Day Years [...] t he electric, gas, oil or water [employer] threatened to shut off services in your [...] documented as of this encounter Care Teams Esthetician Relationship Specialty Start Date End Date Aurelia Steiner NP [address] [place] [address] PCP - General Family Medicine 09/17/23 documented as of this encounter
--- OUTSIDE RECORDS SUMMARY | 2024-12-08 10:00 | XMS_ITS | Encounter Summary ---
Author Organization [employer] Address [address] [facility] [address] [place] [address] Care Team Providers Care Bunch Maker Hand Name Role Phone Aurelia Steiner NP Primary Care Provider [phone] Reason for Visit * Reason Onset Date Comments Reschedule 11/08/2023 Encounter Details Date Type Department Care Team (Late st Contact Info) Description 11/08/2023 Telephone [facility] [address] [place] [address] Aurelia Steiner NP [address] [place] [address] Reschedule Social History Tobacco Use Types Packs/Day [...] documented as of this encounter Care Teams Bunch Maker Hand Relationship Specialty Start Date End Date Aurelia Steiner NP [address] [place] [address] PCP - General Family Medicine 09/17/23 documented as of this encounter
--- OUTSIDE RECORDS SUMMARY | 2024-12-08 10:00 | XMS_ITS | Encounter Summary ---
Author Organization [employer] Address [address] [facility] [address] [place] [address] Care Team Providers Care Irrigation Flume Layer Name Role Phone Janel Kat MD Primary Care Pro vider Aurelia Steiner NP Primary Care Provider [phone] Reason for Visit * Reason Onset Date Comments Nurse Triage 09/16/2023 Encounter Details Date Type Department Care Team (Late st Contact Info) Description 09/16/2023 Telephone [facility] [address] [place] [address] Janel Kat MD [address] [place] [address] Nurse Triage Social History Tobacco Use Types [...] Please assist with obtaining ER notes from [facility] visit on 09/01/23 following fall. Pt has appt 09/17/23 at 1pm with Aurelia QIU. * Telephone Encounter - Maribel García RN - 09/16/2023 9:08 AM EST Call to deep Brooks seen at [facility] 09/01/23 following a fall from stairs. Per [...] 09/17/2023 1:00 PM Aurelia Steiner NP MEDICINE [facility] Video visit offer not recorded Positive [...] Severe pain now, pt was seen at [facility] on 09/01 for falling down the stairs The caller accepted this outcome Please contact pt at [phone] documented in this encounter Plan of Treatment Not on file documented as of this encounter Visit Diagnoses Not on filedocumented in this encounter Care Teams Irrigation Flume Layer Relationship Specialty Start Date End Date Janel Kat MD [address] [place] [address] PCP - General Internal Medicine 02/17/23 09/16/23 Aurelia Steiner NP [address] [place] [address] PCP - General Family Medicine 09/17/23 documented as of this encounter
--- OUTSIDE RECORDS SUMMARY | 2024-12-08 10:00 | XMS_ITS | Encounter Summary ---
Author Organization [employer] Address [address] [facility] [address] [place] [address] Care Team Providers Care Head Shipper Name Role Phone Janel Kat MD Primary Care Pro vider Aurelia Steiner NP Primary Care Provider [phone] Reason for Visit * Reason Comments Med Refill Encounter Details Date Type Department Care Team (Late st Contact Info) Description 07/16/2023 Refill [facility] [address] [place], [place] [phone] [place] CitySary FNP [address] [place], [place] [phone] Social History Tobacco Use Types Packs/Day Years [...] on filedocumented in this encounter Care Teams Head Shipper Relationship Specialty Start Date End Date Janel Kat MD [address] [place] [phone] PCP - General Internal Medicine 02/17/23 09/16/23 Aurelia Steiner NP [address] [place] [address] PCP - General Family Medicine 09/17/23 documented as of this encounter
--- OUTSIDE RECORDS SUMMARY | 2024-12-08 10:00 | XMS_ITS | Encounter Summary ---
Author Organization [employer] Address [address] [facility] [address] [place] [address] Care Team Providers Care Inspector Experimental Assembly Name Role Phone Aurelia Steiner NP Primary Care Provider [phone] Reason for Visit * Reason Comments Med Refill Encounter Details Date Type Department Care Team ([facility] st Contact Info) Description 06/10/2024 Refill [facility] [address] [place] [address] Aurelia Steiner NP [address] [place] [address] Social History Tobacco Use Types Packs/Day Years [...] t he electric, gas, oil or water [employer] threatened to shut off services in your [...] documented as of this encounter Care Teams Inspector Experimental Assembly Relationship Specialty Start Date End Date Aurelia Steiner NP [address] [place] [address] PCP - General Family Medicine 09/17/23 documented as of this encounter
--- OUTSIDE RECORDS SUMMARY | 2024-12-08 10:00 | XMS_ITS | Encounter Summary ---
Author Organization [employer] Address [address] [facility] [address] [place] [address] Care Team Providers Care Lymphedema Therapist Name Role Phone Janel Kat MD Primary Care Pro vider Aurelia Steiner NP Primary Care Provider [phone] Reason for Visit * Reason Onset Date Comments ER Follow-up 09/10/2023 Encounter Details Date Type Department Care Team (Late st Contact Info) Description 09/10/2023 Telephone [facility] [address] [place] [address] Janel Kat MD [address] [place] [address] ER Follow-up Social History Tobacco Use Types [...] ED visit on : Date: 09/01 Hospital: [facility] Seen for: Fell down a flight of stairs Patient advised will forward to team nurse for follow up documented in this encounter Plan of Treatment Not on file documented as of this encounter Visit Diagnoses Not on filedocumented in this encounter Care Teams Lymphedema Therapist Relationship Specialty Start Date End Date Janel Kat MD [address] [place] [address] PCP - General Internal Medicine 02/17/23 09/16/23 Aurelia Steiner NP [address] [place] [address] PCP - General Family Medicine 09/17/23 documented as of this encounter
--- OUTSIDE RECORDS SUMMARY | 2024-12-08 10:00 | XMS_ITS | Encounter Summary ---
Author Organization [employer] Address [address] [facility] [address] [place] [address] Care Team Providers Care Smoking Pipe Maker Name Role Phone Aurelia Steiner NP Primary Care Provider [phone] Reason for Visit * Reason Comments Med Refill Encounter Details Date Type Department Care Team ([facility] st Contact Info) Description 07/16/2024 Refill [facility] [address] [place] [address] Aurelia Steiner NP [address] [place] [address] Social History Tobacco Use Types Packs/Day Years [...] t he electric, gas, oil or water [employer] threatened to shut off services in your [...] documented as of this encounter Care Teams Smoking Pipe Maker Relationship Specialty Start Date End Date Aurelia Steiner NP [address] [place] [address] PCP - General Family Medicine 09/17/23 documented as of this encounter
[2024-12-08 10:02] VITALS: BP 158/70; PULSE 61; BMI 27.2
== END 2024-12-08 10:17 | disposition home or self-care (01) ==
LOC: HO.HGS 09:43
PROVIDERS: PCP Nurse Practitioner Family; Visit Provider Surgery
DX: C50.912 Malignant neoplasm of unspecified site of left female breast (principal)
CPT/HCPCS: 99213; G2211

== ENCOUNTER → 2024-12-08 09:43 | Outpatient (BNVA) | payer MEDICARE, SELFPAY | PROVIDERS: PCP Nurse Practitioner Family; Visit Provider Surgery | DX: C50.912 Malignant neoplasm of unspecified site of left female breast (principal) | CPT/HCPCS: 99212 ==

== ENCOUNTER 2024-12-21 09:23 | Outpatient (REF) | payer MEDICARE, SELFPAY ==
--- OUTSIDE RECORDS SUMMARY | 2024-12-21 09:59 | XMS_ITS | Encounter Summary ---
Author Organization [employer] Address [address] [facility] [address] [place] [address] Care Team Providers Care Employee Relations Director Name Role Phone Janel Kat MD Primary Care Pro vider Aurelia Steiner NP Primary Care Provider [phone] Encounter Details Date Type Department Care Team (Late st Contact Info) Description 07/16/2023 Orders Only [facility] & PEDS [address] [place], [place] [phone] Myah Millan LPN Social History Tobacco Use [...] on filedocumented in this encounter Care Teams Employee Relations Director Relationship Specialty Start Date End Date Janel Kat MD [address] [place] [address] PCP - General Internal Medicine 02/17/23 09/16/23 Aurelia Steiner NP [address] [place] [address] PCP - General Family Medicine 09/17/23 documented as of this encounter
--- OUTSIDE RECORDS SUMMARY | 2024-12-21 09:59 | XMS_ITS | Encounter Summary ---
Author Organization [employer] Address [address] [facility] [address] [place] [address] Care Team Providers Care Non Emergency Services Ambulance Driver Name Role Phone Janel Kat MD Primary Care Pro vider Aurelia Steiner NP Primary Care Provider [phone] Reason for Visit * Reason Onset Date Comments ER Follow-up 09/10/2023 Encounter Details Date Type Department Care Team (Late st Contact Info) Description 09/10/2023 Telephone [facility] [address] [place] [address] Janel Kat MD [address] [place] [address] ER Follow-up Social History Tobacco Use Types [...] ED visit on : Date: 09/01 Hospital: [facility] Seen for: Fell down a flight of stairs Patient advised will forward to team nurse for follow up documented in this encounter Plan of Treatment Not on file documented as of this encounter Visit Diagnoses Not on filedocumented in this encounter Care Teams Non Emergency Services Ambulance Driver Relationship Specialty Start Date End Date Janel Kat MD [address] [place] [address] PCP - General Internal Medicine 02/17/23 09/16/23 Aurelia Steiner NP [address] [place] [address] PCP - General Family Medicine 09/17/23 documented as of this encounter
--- OUTSIDE RECORDS SUMMARY | 2024-12-21 09:59 | XMS_ITS | Clinical Summary ---
Author Organization [employer] Address [address] [facility] 7t [place] [address] Care Team Providers Care Sports Psychologist Name Role Phone Aurelia Steiner RIKKI Primary Care Provider [phone] Allergies No known active allergies Medications triamcinolone [...] Description 12/06/2024 10:00 AM EDT Office Visit [facility] [address] [place] [phone] Jerel Mcmillan CNP Dark urine (Primary Dx) 12/06/2024 Travel 12/05/2024 Telephone [facility] [address] [place] [address] Aurelia Steiner NP Chart Prep 12/01/2024 Telephone [facility] [address] [place] [address] Aurelia Steiner NP Nurse Triage 10/23/2024 Refill [facility] [address] [place] [address] Aurelia Steiner NP 10/18/2024 Telephone [facility] [address] [place] [address] Krys Caldwell [place] new order for echo 10/18/2024 Orders Only [facility] [address] [place] [address] Aurelia Steiner NP Murmur (Primary Dx) 10/17/2024 1:45 PM EST Office Visit [facility] [address] [place] [address] Aurelia Steiner NP Primary hypertension (Primary Dx); Aortic valve insufficiency, etiology of cardiac valve disease unspecified; Dietary counseling; Exercise counseling; Abnormal Romberg test 10/17/2024 Travel 10/10/2024 Telephone [facility] [address] [place] [address] Krys Caldwell MA Chart Prep 10/06/2024 Patient Outreach [facility] [address] [place] [address] Aurelia Steiner NP Pre-visit Planning ([facility] unable to reach [facility] ) from Last 3 Months Immunizations [...] Routine 12/06/2024 10:29 AM EDT Dark urine TRANSTHORACIC ECHO (TTE) COMPLETE Routine 11/06/2024 Murmur MR BRAIN W AND WO CONTRAST Routine [...] Media Lot # [id number] Lot# Expiration Date ,582,820 Urine 12/06/2024 10:2 9 AM EDT Jerel Mcmillan CNP POINT OF CARE TEST ENTER/ EDIT ORDERABLES Final Result * Transthoracic Echo (TTE) Complete (11/06/2024) Aurelia Steiner NP CV ECHO PROCEDURES Final Result * Mr Brain w/ and w/o Contrast (10/25/2024 1:51 PM EDT) Anatomical Region Laterality Modality Brain Magnetic Resonan ce 10/25/2024 1:51 PM EDT Narrative 10/26/2024 8:50 AM EDT ? [facility] ?[address] ?[place], [place] [address] ? Magnetic Resonance Report ? Signed ? Patient: Suarez,Monica ?MR#: [id number] ?? 3 ? : 1950 ?Acct:[id number] ? Age/Sex: 74 / F ?ADM Date: 10/25/24 ? Loc: HO.MRI ? Attending Dr: Aurelia Steiner SR. MEDIA MANAGER ? Ordering Physician: Aurelia Steiner NP ?? Date of Service: 10/25/24 ?? Procedure(s): MR head/brain wo/w con ?? Accession Number(s): [id number] ? cc: Aurelia Steiner NP; Janel Kat MD ? EXAMINATION: ?? MR BRAIN WITHOUT AND WITH CONTRAST ? CLINICAL INFORMATION: ?? History of breast CA in 2014, hypertension, gait deviating to right ?? side. [...] Barth MD ??10/26/2024 08:47 AM EDT RP ?? Workstation: [id number] ? Dictated By: ?Celso Barth MD ? Signed By: ?<Electronically signed by Celso Barth MD in OV> ?10/26/24 0847 ? DD/ 1351 ? TD/TT: 10/25/24 1423 ? Residential Youth Counselor: ? Procedure Note Kavya Barboza - 10/26/[address] [address] Magnetic Resonance Report Signed Patient: Monica SuarezMR#: [id number] 3 : 1Acct:[id number] Age/Sex: 74 / FADM Date: 10/25/24 Loc: HO.MRI Attending Dr: Aurelia Steiner NP Ordering Physician: Aurelia Steiner NP Date of Service: 10/25/24 Procedure(s): MR head/brain wo/w con Accession Number(s): [id number] cc: Aurelia Steiner NP; Janel Kta MD EXAMINATION: MR BRAIN WITHOUT AND WITH [...] 10/26/24 0847 DD/ 1351 TD/TT: 10/25/24 1423 Residential Youth Counselor: us Aurelia Steiner NP IMG MRI PROCEDURES Edited Result - Final * FL Esophagus Barium Swallow (10/24/2024 8:34 AM EDT) Anatomical Region Laterality Modality Head, Neck Radiographic [place] ging 10/24/2024 8:34 AM EDT Narrative 10/24/2024 12:01 PM EDT ? [facility] ?[address] ?[place] [address] ? Fluoroscopy Report ? Signed ? Patient: Monica Suarez ?MR#: [id number] ?? 3 ? : 1950 ?Acct:[id number] ? Age/Sex: 74 / F ?ADM Date: 10/24/24 ? Loc: HO.XRAY ? Attending Dr: Samantha Tran ANP-C ? Ordering Physician: Samantha Tran ANP-C ?? Date of Service: 10/24/24 ?? Procedure(s): FL barium swallow ?? Accession Number(s): [id number] ? cc: Samantha Tran ANP-C; Janel Kat MD ? EXAMINATION: ?? XR [...] DD/ 0834 ? TD/TT: 10/24/24 0908 ? Residential Youth Counselor: MSM ? Procedure Note Kavya Barboza - 10/24/[address] [address] Fluoroscopy Report Signed Patient: Monica SuarezMR#: [id number] 3 : 1Acct:[id number] Age/Sex: 74 / FADM Date: 10/24/24 Loc: [facility] Attending Dr: Samantha WILLETT Ordering Physician: Samantha Tran Date of Service: 10/24/24 Procedure(s): FL barium swallow Accession Number(s): [id number] cc: Samantha Tran; Janel Kat MD EXAMINATION: [...] 10/24/24 1158 DD/ 0834 TD/TT: 10/24/24 0908 Residential Youth Counselor: [facility] External Provider IMG FLU OROSCOPY PROCEDURES Final Result * (ABNORMAL) Lipid Panel, Standard (02/10/2024 11:41 AM EDT) Triglycerides 145 <150 mg/dL [facility] Comment:Desirable Triglyceri de: less than 150 mg/dLBorderline High Triglyceride 150-199 mg/dLHigh Triglyceride: 200-499 mg/dLVery High Triglyceride: greater than or equal to 5OO mg/dL Cholesterol 141 <200 mg/dL [facility] Comment:Desirable Cholestero l: less than 200 mg/dLBorderline High Cholesterol: 200-239 mg/dLHigh Cholesterol: greater than 239 mg/dL LDL Cholesterol Calculated 78 <100 mg/dL [facility] Comment:Desirable LDL: less than 100 mg/dLNear Optimal/Above Optimal LDL: 110- 129 mg/dLBorderline High LDL: 130-159 mg/dLHigh LDL: 160-189 mg/dLVery High LDL: greater than or equal to 190 mg/dL HDL Cholesterol 34(L) >40 mg/dL [facility] Comment:Desirable HDL: great er than 40 mg/dL Note: This HDL assay may give artificially low results in patients with liver disease. Blood Venous blood specimen / Unknown 02/10/2024 11:41 AM EDT 02/10/2024 1:46 PM EDT us Aurelia Steiner SR. MEDIA MANAGER LAB BLOOD ORDERABLES Final Resul t [facility] [address] [place] [address] [phone] * BI Mammogram Screening Tomosynthesis Bilateral (11/02/2023 11:00 AM EDT) Anatomical Region Laterality Modality Breast Bilateral Mammography 11/02/2023 11:0 0 AM EDT Narrative 11/05/2023 1:13 PM EDT ? [facility] ? [address] ?[place] [address] ? Mammography Report ? Signed ? Patient: Suarez,Monica ?MR#: [id number] ?? 3 ? : 1950 ?Acct:[id number] ? Age/Sex: 73 / F ?ADM Date: 03/19/24 ? Loc: HO.MAMMO ? Attending Dr: Janel Olson MD ? Ordering Physician: Janel Kat MD ?Re ?? sults: 2Benign Findings ? Date of Service: 11/02/23 ?Follow Up: 1 Year From Orig ?? inal Mammogram ? Procedure(s): MM tomosynthesis screening BI ?? Accession Number(s): [id number] ? cc: Janel Kat MD ? EXAMINATION: [...] 1309 ? DD/ 1100 ? TD/TT: ? Residential Youth Counselor: ? Procedure Note Donothillinterpreter, Image - 11/05/2023 [place] [facility] [address] [place] [address] Mammography Report Signed Patient: Florian Suarez#: [id number] 3 : 1950cct:[id number] Age/Sex: 73 / FADM Date: 11/02/23 Loc: HO.MAMMO Attending Dr: Janel Olson MD Ordering Physician: Janel Kat sults: 2Benign Findings Date of Service: 11/02/23Follow Up: 1 Year From Orig inal Mammogram Procedure(s): MM tomosynthesis screening BI Accession Number(s): [id number] cc: Janel Kat MD EXAMINATION: MM SCREENING [...] in OV> 11/05/23 1309 DD/ 1100 TD/TT: Residential Youth Counselor: [facility] CenterTeressaPatricia Olson MD IMG BI PROCEDURES Final Result from Last 3 Months or Most Recently Relevant to Health Maintenance Insurance [facility] LONG-TERM OPTIONS (HMO D-SNP) Care Teams Sports Psychologist Relationship Specialty Start Date End Date Aurelia Steiner NP [address] [place] [phone] PCP - General Family Medicine 09/17/23
--- OUTSIDE RECORDS SUMMARY | 2024-12-21 09:59 | XMS_ITS | Encounter Summary ---
Author Organization [employer] Address [address] [facility] [address]t [place] [address] Care Team Providers Care Supervisor Mails Name Role Phone Aurelia Steiner NP Primary Care Provider [phone] Reason for Visit * Reason Comments Med Refill Encounter Details Date Type Department Care Team ([facility] st Contact Info) Description 06/10/2024 Refill [facility] [address] [place] [address] Aurelia Steiner NP [address] [place] [address] Social History Tobacco Use Types Packs/Day Years [...] documented as of this encounter Care Teams Supervisor Mails Relationship Specialty Start Date End Date Aurelia Steiner NP [address] [place] [address] PCP - General Family Medicine 09/17/23 documented as of this encounter
--- OUTSIDE RECORDS SUMMARY | 2024-12-21 09:59 | XMS_ITS | Encounter Summary ---
Author Organization [employer] Address [address] [facility] 7t [place] [address] Care Team Providers Care Doctor Of Podiatry Name Role Phone Aurelia Steiner NP Primary Care Provider [phone] Reason for Visit * Reason Comments Med Refill Encounter Details Date Type Department Care Team ([facility] st Contact Info) Description 07/16/2024 Refill [facility] [address] [place] [address] Aurelia Steiner NP [address] [place] [address] Social History Tobacco Use Types Packs/Day Years [...] documented as of this encounter Care Teams Doctor Of Podiatry Relationship Specialty Start Date End Date Aurelia Steiner NP [address] [place] [address] PCP - General Family Medicine 09/17/23 documented as of this encounter
--- OUTSIDE RECORDS SUMMARY | 2024-12-21 09:59 | XMS_ITS | Encounter Summary ---
Author Organization [employer] Address [address] [facility] [address] [place] [address] Care Team Providers Care Junior Project Coordinator Name Role Phone Janel Kat MD Primary Care Pro vider Aurelia Steiner NP Primary Care Provider [phone] Reason for Visit * Reason Comments Med Refill Encounter Details Date Type Department Care Team (Late st Contact Info) Description 07/16/2023 Refill [facility] [address] [place] [address] SeymourSary FNP [address] [place] [address] Social History Tobacco Use Types Packs/Day Years [...] on filedocumented in this encounter Care Teams Junior Project Coordinator Relationship Specialty Start Date End Date Janel Kat MD [address] [place], [place] [phone] PCP - General Internal Medicine 02/17/23 09/16/23 Aurelia Steiner NP [address] [place] [address] PCP - General Family Medicine 09/17/23 documented as of this encounter
--- OUTSIDE RECORDS SUMMARY | 2024-12-21 09:59 | XMS_ITS | Encounter Summary ---
Author Organization [employer] Address [address] [facility] [address] [place] [address] Care Team Providers Care Home And Family Living Professor Name Role Phone Janel Kat MD Primary Care Pro vider Aurelia Steiner NP Primary Care Provider [phone] Reason for Visit * Reason Onset Date Comments Nurse Triage 09/16/2023 Encounter Details Date Type Department Care Team (Late st Contact Info) Description 09/16/2023 Telephone [facility] [address] [place] [address] Janel Kat MD [address] [place] [address] Nurse Triage Social History Tobacco Use Types [...] Please assist with obtaining [place] [facility] [place] following fall. Pt has appt 09/17/23 at 1pm with Aurelia QIU. * Telephone Encounter - Maribel García RN - 09/16/2023 9:08 AM EST Call to deep [place] [facility] [place] following a fall [...] 09/17/2023 1:00 PM Aurelia Steiner NP MEDICINE [facility] Video visit offer not recorded Positive [...] Severe pain now, pt was seen [place] [facility] [place]01 for falling down the stairs The caller accepted this outcome Please contact pt at [phone] documented in this encounter Plan of Treatment Not on file documented as of this encounter Visit Diagnoses Not on filedocumented in this encounter Care Teams Home And Family Living Professor Relationship Specialty Start Date End Date Janel Kat MD [address] [place] [address] PCP - General Internal Medicine 02/17/23 09/16/23 Aurelia Steiner NP [address] [place] [address] PCP - General Family Medicine 09/17/23 documented as of this encounter
--- OUTSIDE RECORDS SUMMARY | 2024-12-21 09:59 | XMS_ITS | Encounter Summary ---
Author Organization [employer] Address [address] [facility] [address] [place] [address] Care Team Providers Care Building Services Coordinator Name Role Phone Aurelia Steiner NP Primary Care Provider [phone] Reason for Visit * Reason Onset Date Comments Reschedule 11/08/2023 Encounter Details Date Type Department Care Team (Late st Contact Info) Description 11/08/2023 Telephone [facility] [address] [place] [address] Aurelia Steiner NP [address] [place] [address] Reschedule Social History Tobacco Use Types Packs/Day [...] documented as of this encounter Care Teams Building Services Coordinator Relationship Specialty Start Date End Date Aurelia Steiner NP [address] [place] [address] PCP - General Family Medicine 09/17/23 documented as of this encounter
--- OUTSIDE RECORDS SUMMARY | 2024-12-21 09:59 | XMS_ITS | Encounter Summary ---
Author Organization [employer] Address [address] [place] [address] [address] [place] [address] Care Team Providers Care Journeyman Glazier Name Role Phone Janel Kat MD Primary Care Pro vider Aurelia Steiner NP Primary Care Provider [phone] Reason for Visit * Reason Onset Date Comments Appointment Request 09/07/2023 Encounter Details Date Type Department Care Team (Late st Contact Info) Description 09/07/2023 Telephone [facility] [address] [place] [address] Janel Kat MD [address] [place] [address] Appointment Request Social History Tobacco Use Types [...] on filedocumented in this encounter Care Teams Journeyman Glazier Relationship Specialty Start Date End Date Janel Kat MD [address] [place] [address] PCP - General Internal Medicine 02/17/23 09/16/23 Aurelia Steiner NP [address] [place] [address] PCP - General Family Medicine 09/17/23 documented as of this encounter
--- OUTSIDE RECORDS SUMMARY | 2024-12-21 09:59 | XMS_ITS | Encounter Summary ---
Author Organization [employer] Address [address] [facility] 7t [place] [address] Care Team Providers Care Transmission And Protection Engineer Name Role Phone Aurelia Steiner NP Primary Care Provider [phone] Reason for Visit * Reason Comments Med Refill Encounter Details Date Type Department Care Team ([facility] st Contact Info) Description 07/23/2024 Refill [facility] [address] [place] [address] Aurelia Steiner NP [address] [place] [address] Social History Tobacco Use Types Packs/Day Years [...] documented as of this encounter Care Teams Transmission And Protection Engineer Relationship Specialty Start Date End Date Aurelia Steiner NP [address] [place] [address] PCP - General Family Medicine 09/17/23 documented as of this encounter
== END 2024-12-21 09:24 | disposition home or self-care (01) ==
LOC: HO.MAMMO 09:23
PROVIDERS: PCP Nurse Practitioner Family; Visit Provider Surgery
DX: Z12.31 Encounter for screening mammogram for malignant neoplasm of breast (principal)
CPT/HCPCS: 77063; 77067

== ENCOUNTER → 2024-12-21 09:30 | Outpatient (BNV) | payer MEDICARE, SELFPAY | PROVIDERS: PCP Nurse Practitioner Family; Visit Provider Internal Medicine | DX: Z12.31 Encounter for screening mammogram for malignant neoplasm of breast (principal) | CPT/HCPCS: 77063; 77067 ==

== ENCOUNTER 2025-05-25 10:31 | Outpatient (REF) | payer MEDICARE, SELFPAY ==
[2025-05-25 11:48] LABS: Hematocrit 43.8 % (37.0-47.0); Hemoglobin 15.0 g/dl (12.0-16.0); Imm Gran Abs Auto 0.01 X10*3/uL (0.00-0.03); Imm Gran Pct Auto 0.1 % (0.0-0.4); Lymphocytes Absolute Auto 5.2 X10*3/uL (1.2-4.9); MANUAL DIFF FLAG SCAN; Mean Corpuscular HGB Conc 34.2 g/dl (31.0-35.0); Mean Corpuscular Hemoglobin 30.4 pg (27.0-33.0); Mean Corpuscular Volume 88.8 fL (80.0-98.0); NRBC Abs Auto 0.000 X10*3/uL (0.0-0.012); NRBC Pct Auto 0.0 /100WBC (0.0-0.2); Platelet Count 202 X10*3/uL (160-400); Red Blood Count 4.93 X10*6/uL (4.20-5.50); SCAN SMEAR FLAG 1; White Blood Count 8.9 X10*3/uL (4.8-10.8)
[2025-05-25 12:14] LABS: Alanine Aminotransferase 21 U/L (0-31); Albumin Level 4.3 g/dL (3.5-5.0); Alkaline Phosphatase 88 U/L (39-117); Anion Gap 9 (12-20); Aspartate Amino Transferase 26 U/L (5-31); Blood Urea Nitrogen 18 mg/dL (9-16); Calcium 9.3 mg/dL (8.4-10.2); Carbon Dioxide 32 mmol/L (22-29); Chloride 106 mmol/L (96-108); Cholesterol 149 mg/dL (<200); Estimated Glomerular Filt Rate > 60; HDL Cholesterol 35 mg/dL (>40); Potassium 3.8 mmol/L (3.3-5.1); Sodium 143 mmol/L (135-145); Total Protein 7.5 g/dL (6.5-8.0); Triglycerides 80 mg/dL (<150)
== END 2025-05-25 10:32 | disposition home or self-care (01) ==
LOC: HO.LAB 10:31
PROVIDERS: PCP Nurse Practitioner Family; Visit Provider Nurse Practitioner Family
DX: I63.81 Other cerebral infarction due to occlusion or stenosis of small artery (principal)
CPT/HCPCS: 36415; 80053; 80061; 85025

== ENCOUNTER 2025-07-30 18:39 | Outpatient (REF) | payer MEDICARE, SELFPAY ==
--- OUTSIDE RECORDS SUMMARY | 2025-07-30 13:45 | XMS_ITS | Encounter Summary ---
Author Organization [employer] Address [address] [facility] [address] [place] [address] Care Team Providers Care Benefits Assistant Name Role Phone Aurelia Steiner NP Primary Care Provider [phone] Reason for Visit * Reason Comments Follow-up Encounter Details Date Type Department Care Team (Latest Contact Info) Description 07/30/2025 1:45 PM EST Office Visit [facility] [address] [place], [place] [phone] Aurelia Steiner NP [address] [place] [address] Gastroesophageal reflux disease with esophagitis without hemorrhage (Primary Dx); Moderate dementia without behavioral disturbance, psychotic disturbance, mood disturbance, or anxiety, unspecified dementia type (CMS/HCC) (HCC); Lacunar infarction (CMS/HCC) (HCC); Dysuria Social History Tobacco Use Types Packs/Day Years [...] Sex Female 10:21 AM EDT Gender Identity Female 05/22/2025 1:27 PM EDT Sexual Orientation Straight 05/22/2025 1: 27 PM EDT documented as of this encounter Last Filed Vital Signs Vital Sign Reading Time Taken Comments Blood Pressure 142/82 07/30/2025 1:29 PM EST Pulse 61 07/30/2025 1:29 PM EST Temperature 36.3 C (97.3 F) 07/30/2025 1:29 PM EST Respiratory Rate 18 07/30/2025 1:29 PM EST Oxygen Saturation 97% 07/30/2025 1:29 PM EST Inhaled Oxygen Concentration - - Weight 66 kg (145 lb 9.6 oz) 07/30/2025 1:29 PM EST Height 154.9 cm (5' 1 ) 07/30/2025 1:29 PM EST Body Mass Index 27.51 07/30/2025 1:29 PM EST documented in this encounter Progress Notes * Aurelia Steiner NP - 07/30/2025 1:45 PM EST Monica Saurez, 75-year-old female - Dry sore throat in the morning, resolves after waking - Occasional snoring at night - Forgetfulness, difficulty recalling information, memory issues noted by patient and confirmed by prior memory test at clinic - Occasional stomach discomfort in the morning - Reports running out of pantoprazole, requests refill - Occasional burning sensation with urination - Denies chest pain or pressure Problem List[1] Medical History[2] Allergies[3] Review of Systems Constitutional: Negative for activity change. HENT: Positive for sore throat. Gastrointestinal: Positive for abdominal pain. BP (!) 142/82 (BP Location: Right arm, Patient Position: Sitting, BP Cuff Size: Adult) Pulse 61 Temp 97.3 ??F (36.3 ??C) (Oral) Resp 18 Ht 5' 1 (1.549 m) Wt 145 lb 9.6 oz (66 kg) SpO2 97% BMI 27.51 kg/m?? Physical Exam Vitals reviewed. HENT: Head: Normocephalic and atraumatic. Nose: Nose normal. Eyes: Conjunctiva/sclera: Conjunctivae normal. Cardiovascular: Rate and Rhythm: Normal rate and regular rhythm. Heart sounds: Murmur heard. Pulmonary: Effort: Pulmonary effort is normal. Breath sounds: Normal breath sounds. Musculoskeletal: Cervical back: Normal range of motion and neck supple. Neurological: General: No focal deficit present. Mental Status: She is alert. - CARDIOVASCULAR: Cardiac auscultation performed, no chest pain or pressure reported. Results: No visits with results within 28 Day(s) from this visit. Latest known visit with results is: Orders Only on 05/25/2025 Component Date Value Ref Range Status ??? Slide Review 05/25/2025 VERIFIED Final Pt scored a 18/30 on their MOCA exam and test was scanned into pt chart. Assessment & Plan Gastroesophageal reflux disease with esophagitis without hemorrhage Moderate dementia without behavioral disturbance, psychotic disturbance, mood disturbance, or anxiety, unspecified dementia type (CMS/HCC) ([facility]) Lacunar infarction (CMS/HCC) ([facility]) Orders: ??? aspirin 81 MG chewable tablet; Chew 1 tablet (81 mg) Once per day. Dysuria Orders: ??? Culture, Urine, Routine; Future Assessment & Plan Gastroesophageal reflux disease with esophagitis without hemorrhage: - Sore throat and abdominal discomfort likely related to gastroesophageal reflux. - Renewed pantoprazole prescription. Advised to increase water intake for dehydration. Follow-up recommended after one month of medication use to assess improvement in sore throat and abdominal pain. Moderate dementia without behavioral disturbance, psychotic disturbance, mood disturbance, or anxiety, unspecified dementia type (CMS/HCC) (HCC): - Memory impairment confirmed by prior clinic memory test. - Referral to neurology for further evaluation. Recommended bringing a family member to neurology appointment for support and assistance with recall. Offered to contact daughter and provide a work note to facilitate attendance. Lacunar infarction (CMS/HCC) (HCC): - Prescribed refills for hydrochlorothiazide, Lipitor, atenolol, and aspirin. Dysuria: - Dysuria possibly related to inadequate hydration. - Urine sample collected for analysis to rule out infection. Advised to increase water intake. Prescription - Pantoprazole, refill - Hydrochlorothiazide, refill - Atorvastatin (Lipitor), refill - Atenolol, refill - Aspirin, refill Appointments - Follow-up appointment in one month to assess abdominal pain and memory function. Current Medications[4] Based on our discussion, I have outlined the following instructions for you: - Drink more water every day to help with dehydration and the burning feeling when you urinate. - marketing support assistant your refills for pantoprazole, hydrochlorothiazide, atorvastatin (Lipitor), atenolol, andaspirin, and continue taking them as prescribed. - A urine sample was collected to check for infection. - You will be referred to a hr specialist (neurologist) for further checks on your memory. Bringa family member with you to this appointment to help you remember information. - If needed, your daughter can be contacted and a work note can be provided to help her attend the appointment with you. Next appointment(s): Follow-up appointment in one month to assess abdominal pain and memory function. This note was drafted using [employer] ([employer]) technology. The patient/patient's guardian has been informed and has consented to the use of this technology: Yes Visit Conducted in: Cypriot Translation by: Patient is bilingual and declines translation services Daughter phone [phone] Irland[place] [1] Patient Active Problem List Diagnosis ??? Aortic valve regurgitation ??? Carcinoma of breast (CMS/HCC) (HCC) ??? Cobalamin deficiency ??? Constipation ??? Degeneration of lumbar intervertebral disc ??? Hypertension ??? Impaired fasting glucose ??? Gastritis ??? Intestinal metaplasia of gastric mucosa ??? Lumbar radiculopathy ??? Microscopic hematuria ??? Osteoporosis ??? Hearing loss of left ear ??? Chronic pain of left ankle ??? Dehydration ??? Aortic calcification (CMS/HCC) ??? Thyroid nodule ??? Skin lesion ??? Abnormal Romberg test ??? Dietary counseling ??? Exercise counseling ??? Murmur ??? Lacunar infarction (CMS/HCC) ([facility]) ??? Memory impairment ??? Dark urine ??? Gastroesophageal reflux disease with esophagitis without hemorrhage ??? Moderate dementia without behavioral disturbance, psychotic disturbance, mood disturbance, or anxiety (CMS/HCC) ([facility]) ??? Dysuria [2] No past medical history on file. [3] No Known Allergies [4] Current Outpatient Medications: ??? aspirin 81 MG chewable tablet, Chew 1 tablet (81 mg) Once per day., Disp: 30 tablet, Rfl: 11 ??? atenolol (Tenormin) 25 MG tablet, Take 1 tablet (25 mg) by mouth Once per day., Disp: 90 tablet, Rfl: 0 ??? atorvastatin (Lipitor) 20 MG tablet, TAKE 1 TABLET BY MOUTH EVERY DAY, Disp: 90 tablet, Rfl: 1 ??? hydroCHLOROthiazide 12.5 MG tablet, Take 1 tablet (12.5 mg) by mouth Once per day., Disp: 90 tablet, Rfl: 0 ??? lisinopril (Prinivil) 20 MG tablet, Take 1 tablet (20 mg) by mouth Once per day., Disp: 90 tablet, Rfl: 1 ??? pantoprazole (Protonix) 40 MG EC tablet, Take 1 tablet (40 mg) by mouth before breakfast. Do not crush, chew, or split., Disp: 30 tablet, Rfl: 2 ??? triamcinolone (Kenalog) 0.1 % cream, Apply topically if needed in the morning and at bedtime (pain and swelling)., Disp: 30 g, Rfl: 1 * Aurelia Steiner NP - 07/30/2025 1:45 PM EST Phone call: attempted to contact daughter to encourage attendance at upcoming visit with neuro. Didnot leave vm documented in this encounter Miscellaneous Notes * Assessment & Plan Note - Aurelia Steiner NP - 07/30/2025 1:45 PM ESTAssociated Problem(s): Gastroesophageal reflux disease with esophagitis without hemorrhage * Assessment & Plan Note - Aurelia Steiner NP - 07/30/2025 1:45 PM ESTAssociated Problem(s): Moderate dementia without behavioral disturbance, psychotic disturbance, mood disturbance, or anxiety (CMS/HCC) ([facility]) * Assessment & Plan Note - Aurelia Steiner NP - 07/30/2025 1:45 PM ESTAssociated Problem(s): Lacunar infarction ([facility]) ([facility]) Orders: aspirin 81 MG chewable tablet; Chew 1 tablet (81 mg) Once per day. * Assessment & Plan Note - Aurelia Steiner NP - 07/30/2025 1:45 PM ESTAssociated Problem(s): Dysuria Orders: Culture, Urine, Routine; Future documented in this encounter Plan of Treatment Upcoming Encounters Date Type Department Care Team (Late st Contact Info) Description 10/09/2025 1:45 PM EST Office Visit [facility] [address] [place] [address] Aurelia Steiner NP [address] [place] [address] Scheduled Orders Name Type Priority Associated Diagnoses Orde r Schedule Culture, Urine, Routine Microbiology Routine Dysuria Expected: 07/30/2025 (Approximate), Expires: 07/30/2026 documented as of this encounter Procedures Procedure Name Priority Date/Time Associated Diagnosis Comments POCT URINALYSIS DIPSTICK Routine 07/30/2025 2:04 PM EST Dysuria documented in this encounter Results * (ABNORMAL) POCT Urinalysis (07/30/2025 2:04 PM EST) Color, UA Yellow Clarity, UA Clear Glucose, UA Negative Bilirubin, UA Negative Ketones, UA Negative Spec Grav, UA 1.020 Blood, UA Positive(A) Negative, None Detected Comment:moderate pH, UA 5.5 Protein, UA Negative Urobilinogen, UA 0.2 Leukocytes, UA Negative Negative, Rare, Trace, 1+ (17), 2+ (35), 3+ (70), Trace (15) Nitrite, UA Negative Negative, None Detected Appearance, UA 501,021 QC Media Lot # [id number] Urine (Urine, Random) 07/30/2025 2:04 PM EST Aurelia Steiner NP POINT OF CARE TEST ENTER/EDIT OR DERABLES Final Result documented in this encounter Visit Diagnoses Diagnosis Gastroesophageal reflux disease with esophagitis without hemorrhage- Primary Moderate dementia without behavioral disturbance, psychotic disturbance, mood disturbance, or anxiety, unspecified dementia type ([facility]/HCC) (HCC) Lacunar infarction ([facility]) ([facility]) Unspecified cerebral artery occlusion with cerebral infarction Dysuria documented in this encounter Additional Health Concerns Assessment Noted Time PHQ-9 Depression Total Score: 3 10/18/19 25 2:25 PM EST documented as of this encounter Care Teams Benefits Assistant Relationship Specialty Start Date End Date Aurelai Steiner NP [address] [place] [address] PCP - General Family Medicine 09/17/23 documented as of this encounter
--- OUTSIDE RECORDS SUMMARY | 2025-07-30 22:47 | XMS_ITS | Encounter Summary ---
Author Organization [employer] Address [address] [place] [address] [address], [place] [address] Care Team Providers Care Film Recordist Name Role Phone Janel Kat MD Primary Care Pro vider Aurelia Steiner NP Primary Care Provider [phone] Reason for Visit * Reason Onset Date Comments Appointment Request 09/07/2023 Encounter Details Date Type Department Care Team (Late st Contact Info) Description 09/07/2023 Telephone [facility] MED[facility]INE [address] [place] [phone] Janel Kat MD [address] [place] [address] Appointment Request Social History Tobacco Use Types Packs/Day Years Used Date Smoking Tobacco: Never Assessed Comments Unknown Sex and Gender Information Value Date Recorded Sex Assigned at Female 06/15/2022 10:21 AM EDT Legal Sex Female 10:21 AM EDT Gender Identity Female 05/22/2025 1:27 PM EDT Sexual Orientation Straight 05/22/2025 1: 27 PM EDT documented as of this encounter Miscellaneous [...] Description 10/09/2025 1:45 PM EST Office Visit [facility] [address] [place] [address] Aurelia Steiner NP [address] [place] [address] documented as of this encounter Visit Diagnoses Not on filedocumented in this encounter Care Teams Film Recordist Relationship Specialty Start Date End Date Janel Kat MD [address] [place], [place] [phone] PCP - General Internal Medicine 02/17/23 09/16/23 Aurelia Steiner NP [address] [place], [place] [phone] PCP - General Family Medicine 09/17/23 documented as of this encounter
--- OUTSIDE RECORDS SUMMARY | 2025-07-30 22:47 | XMS_ITS | Encounter Summary ---
Author Organization [employer] Address [address] [facility] [address] [place] [address] Care Team Providers Care Integration Director Name Role Phone Aurelia Steiner RIKKI Primary Care Provider [phone] Encounter Details Date Type Department Care Team (Latest Contact Info) Description 07/30/2025 Travel Social History Tobacco Use Types Packs/Day [...] PM EDT documented as of this encounter Plan of Treatment Upcoming Encounters Date Type Department Care Team (Late st Contact Info) Description 10/09/2025 1:45 PM EST Office Visit [facility] [address] [place] [address] Aurelia Steiner NP [address] [place] [address] documented as of this encounter Visit Diagnoses Not on filedocumented in this encounter Additional Health Concerns Assessment Noted Time PHQ-9 Depression Total Score: 3 10/18/19 25 2:25 PM EST documented as of this encounter Care Teams Integration Director Relationship Specialty Start Date End Date Aurelia Steiner NP [address] [place] [address] PCP - General Family Medicine 09/17/23 documented as of this encounter
--- OUTSIDE RECORDS SUMMARY | 2025-07-30 22:47 | XMS_ITS | Encounter Summary ---
Author Organization [employer] Address [address] [facility] [address] [place] [address] Care Team Providers Care Mixing Machine Feeder Name Role Phone Aurelia Steiner NP Primary Care Provider [phone] Reason for Visit * Reason Onset Date Comments Reschedule 11/08/2023 Encounter Details Date Type Department Care Team (Late st Contact Info) Description 11/08/2023 Telephone [facility] [address] [place] [address] Aurelia Steiner NP [address] [place] [address] Reschedule Social History Tobacco Use Types Packs/Day [...] Description 10/09/2025 1:45 PM EST Office Visit [facility] [address] [place] [address] Aurelia Steiner NP [address] [place] [address] documented as of this encounter Visit Diagnoses Not on filedocumented in this encounter Additional Health Concerns Assessment Noted Time PHQ-9 Depression Total Score: 0 09/17/19 1:14 PM EST documented as of this encounter Care Teams Mixing Machine Feeder Relationship Specialty Start Date End Date Aurelia Steiner NP [address] [place] [address] PCP - General Family Medicine 09/17/23 documented as of this encounter
--- OUTSIDE RECORDS SUMMARY | 2025-07-30 22:47 | XMS_ITS | Encounter Summary ---
Author Organization [employer] Address [address] [facility] [address] [place] [address] Care Team Providers Care Refrigeration Service Technician Name Role Phone Aurelia Steiner NP Primary Care Provider [phone] Reason for Visit * Reason Comments Med Refill Encounter Details Date Type Department Care Team ([facility] st Contact Info) Description 03/01/2025 Refill [facility]INE [address] [place] [address] Aurelia Steiner NP [address] [place] [address] Social History Tobacco Use Types Packs/Day Years [...] Description 10/09/2025 1:45 PM EST Office Visit [facility] [address] [place] [address] Aurelia Steiner NP [address] [place] [address] documented as of this encounter Visit Diagnoses Not on filedocumented in this encounter Additional Health Concerns Assessment Noted Time PHQ-9 Depression Total Score: 3 10/18/19 25 2:25 PM EST documented as of this encounter Care Teams Refrigeration Service Technician Relationship Specialty Start Date End Date Aurelia Steiner NP [address] [place] [address] PCP - General Family Medicine 09/17/23 documented as of this encounter
--- OUTSIDE RECORDS SUMMARY | 2025-07-30 22:47 | XMS_ITS | Encounter Summary ---
Author Organization [employer] Address [address] [facility] 7[address] [place] [address] Care Team Providers Care Industrial Machine Assembler Name Role Phone Aurelia Steiner NP Primary Care Provider [phone] Reason for Visit * Reason Comments Med Refill Encounter Details Date Type Department Care Team ([facility] st Contact Info) Description 06/10/2024 Refill [facility]INE [address] [place] [address] Aurelia Steiner NP [address] [place] [address] Social History Tobacco Use Types Packs/Day Years [...] Description 10/09/2025 1:45 PM EST Office Visit [facility] [address] [place] [address] Aurelia Steiner NP [address] [place] [address] documented as of this encounter Visit Diagnoses Not on filedocumented in this encounter Additional Health Concerns Assessment Noted Time PHQ-9 Depression Total Score: 0 09/17/19 1:14 PM EST documented as of this encounter Care Teams Industrial Machine Assembler Relationship Specialty Start Date End Date Aurelia Steiner NP [address] [place] [address] PCP - General Family Medicine 09/17/23 documented as of this encounter
--- OUTSIDE RECORDS SUMMARY | 2025-07-30 22:47 | XMS_ITS | Encounter Summary ---
Author Organization [employer] Address [address] [facility] 7[address] [place] [address] Care Team Providers Care Otm Consultant Name Role Phone Aurelia Steiner NP Primary Care Provider [phone] Reason for Visit * Reason Comments Med Refill Encounter Details Date Type Department Care Team ([facility] st Contact Info) Description 07/23/2024 Refill [facility] MEDICINE [address] [place] [address] Aurelia Steiner NP [address] [place] [address] Social History Tobacco Use Types Packs/Day Years [...] Description 10/09/2025 1:45 PM EST Office Visit [facility] MEDICINE [address] [place] [address] Aurelia Steiner NP [address] [place] [address] documented as of this encounter Visit Diagnoses Not on filedocumented in this encounter Additional Health Concerns Assessment Noted Time PHQ-9 Depression Total Score: 0 09/17/19 1:14 PM EST documented as of this encounter Care Teams Otm Consultant Relationship Specialty Start Date End Date Aurelia Steiner NP [address] [place] [address] PCP - General Family Medicine 09/17/23 documented as of this encounter
--- OUTSIDE RECORDS SUMMARY | 2025-07-30 22:47 | XMS_ITS | Encounter Summary ---
Author Organization [employer] Address [address] [facility] [address] [place] [address] Care Team Providers Care Card Checker Name Role Phone Janel Kat MD Primary Care Pro vider Aurelia Steiner NP Primary Care Provider [phone] Reason for Visit * Reason Onset Date Comments Nurse Triage 09/16/2023 Encounter Details Date Type Department Care Team (Late st Contact Info) Description 09/16/2023 Telephone [facility] MEDICINE [address] [place] [address] Janel Kat MD [address] [place] [address] Nurse Triage Social History Tobacco Use Types [...] PM EDT documented as of this encounter Functional Status * Over the past 2 weeks, how often have you been bothered by any of the following problems? Question Answer Date of Assessment Author Patient Health Questionnaire-2 Score 0 09/2023 1:14 PM Osvaldo Pittman [place] * Over the past 2 weeks, how often have you been bothered by any of the following problems? Question Answer Date of Assessment Author Little interest or pleasure in doing things Not at all 09/17/2023 1:14 PM Osvaldo Pittman [place] Feeling down, depressed, or hopeless Not at all 09/17/2023 1:14 PM Osvaldo Pittman [place] Trouble falling or staying asleep, or sleeping too much Not at all 09/17/2023 1:14 PM Doug Pittman [place] Feeling tired or having marvin le energy Not at all 09/17/2023 1:14 PM Osvaldo Pittman [place] Poor appetite or overeating Not at all 09/17/2023 1: 14 PM Osvaldo Pittman [place] Feeling bad about yourself - or that you are a failure or have let yourself or your family down Not at all 09/17/2023 1:14 PM Osvaldo Shaw [place] Trouble concentrating on thi ngs, such as reading the newspaper or watching television Not at all 09/17/2023 1:14 PM Osvaldo Pittman MA Moving or speaking so slowly that other people could have noticed? Or the opposite - being so fidgety or restless that you have been moving around a lot more than usual. Not at all 09/17/2023 1:14 PM Osvaldo Pittman MA Thoughts that you would be b yudith off or hurting yourself in some way Not at all 09/17/2023 1:14 PM Osvaldo Pittman MA Patient Health Questionnaire -9 Score 0 09/17/2023 1:14 PM Osvaldo Pittman [place] documented as of this encounter Miscellaneous Notes * Telephone Encounter - Maribel García RN - 09/16/2023 9:15 AM EST Please assist with obtaining ER notes from [facility] visit on 09/01/23 following fall. Pt has appt 09/17/23 at 1pm with Aurelia QIU. * Telephone Encounter - Maribel García RN - 09/16/2023 9:08 AM EST Call to deep Brooks seen at [facility] 09/01/23 following a fall from stairs. Per [...] 09/17/2023 1:00 PM Aurelia Steiner NP MEDICINE [facility] Video visit offer not recorded Positive [...] become worse * Telephone Encounter - Alicia Nguyễn - 09/16/2023 8:58 AM EST Symptom: Leg Pain - Not From Injury Outcome: Schedule an urgent appointment (within 1 hour) or talk to a nurse or provider soon Reason: Severe pain now, pt was seen at [facility] on 09/01 for falling down the stairs The caller accepted this outcome Please contact pt at [phone] documented in this encounter Plan of Treatment Upcoming Encounters Date Type Department Care Team (Late st Contact Info) Description 10/09/2025 1:45 PM EST Office Visit [facility] MEDICINE [address] [place] [phone] Aurelia Steiner NP [address] [place] [address] documented as of this encounter Visit Diagnoses Not on filedocumented in this encounter Care Teams Card Checker Relationship Specialty Start Date End Date Janel Kat MD [address] [place] [phone] PCP - General Internal Medicine 02/17/23 09/16/23 Aurelia Steiner NP [address] [place] [id number] PCP - General Family Medicine 09/17/23 documented as of this encounter
--- OUTSIDE RECORDS SUMMARY | 2025-07-30 22:47 | XMS_ITS | Encounter Summary ---
Author Organization [employer] Address 75 [facility] [address], [place] [address] Care Team Providers Care Director Of Occupational Health Name Role Phone Janel Kat MD Primary Care Pro vider Aurelia Steiner NP Primary Care Provider [phone] Reason for Visit * Reason Onset Date Comments ER Follow-up 09/10/2023 Encounter Details Date Type Department Care Team (Late st Contact Info) Description 09/10/2023 Telephone [facility] [address] [place] [address] Janel Kat MD [address] [place] [address] ER Follow-up Social History Tobacco Use Types [...] ED visit on : Date: 09/01 [place] [facility] [place]en for: Fell down a flight of stairs Patient advised will forward to team nurse for follow up documented in this encounter Plan of Treatment Upcoming Encounters Date Type Department Care Team (Late st Contact Info) Description 10/09/2025 1:45 PM EST Office Visit [facility] [address] [place] [address] Aurelia Steiner NP [address] [place], [place] [phone] documented as of this encounter Visit Diagnoses Not on filedocumented in this encounter Care Teams Director Of Occupational Health Relationship Specialty Start Date End Date Janel Kat MD [address] [place] [address] [phone] PCP - General Internal Medicine 02/17/23 09/16/23 Aurelia Steiner NP [address] [place] [address] [phone] PCP - General Family Medicine 09/17/23 documented as of this encounter
--- OUTSIDE RECORDS SUMMARY | 2025-07-30 22:47 | XMS_ITS | Encounter Summary ---
Author Organization [employer] Address 75 [facility] 7[address] [place] [address] Care Team Providers Care Vocational Rehabilitation Counselor Name Role Phone Janel Kat MD Primary Care Pro vider Aurelia Steiner NP Primary Care Provider [phone] Reason for Visit * Reason Comments Med Refill Encounter Details Date Type Department Care Team (Late st Contact Info) Description 07/16/2023 Refill [facility] [address] [place] [address] [facility] [address] [place] [address] Social History Tobacco Use Types Packs/Day Years [...] Description 10/09/2025 1:45 PM EST Office Visit [facility] [address] [place] [address] Aurelia Steiner NP [address] [place] [address] documented as of this encounter Visit Diagnoses Not on filedocumented in this encounter Care Teams Vocational Rehabilitation Counselor Relationship Specialty Start Date End Date Janel Kat MD [address] [place] [address] PCP - General Internal Medicine 02/17/23 09/16/23 Aurelia Steiner NP [address] [place] [address] PCP - General Family Medicine 09/17/23 documented as of this encounter
--- OUTSIDE RECORDS SUMMARY | 2025-07-30 22:47 | XMS_ITS | Encounter Summary ---
Author Organization [employer] Address 75 [facility] 7t [place] [address] Care Team Providers Care Cell Efficiency Supervisor Name Role Phone Aurelia Steiner RIKKI Primary Care Provider [phone] Reason for Visit * Reason Comments Med Refill Encounter Details Date Type Department Care Team ([facility] st Contact Info) Description 03/01/2025 Refill [facility] [address] [place] [address] [facility] [address] [place] [address] Social History Tobacco Use Types Packs/Day Years [...] t he electric, gas, oil or water [employer] threatened to shut off services in your [...] Description 10/09/2025 1:45 PM EST Office Visit [facility] [address] [place] [address] Aurelia Steiner NP 230 [place] [address] documented as of this encounter Visit Diagnoses Not on filedocumented in this encounter Additional Health Concerns Assessment Noted Time PHQ-9 Depression Total Score: 3 10/18/19 25 2:25 PM EST documented as of this encounter Care Teams Cell Efficiency Supervisor Relationship Specialty Start Date End Date Aurelia Steiner NP [address] [place] [address] PCP - General Family Medicine 09/17/23 documented as of this encounter
--- OUTSIDE RECORDS SUMMARY | 2025-07-30 22:47 | XMS_ITS | Clinical Summary ---
Author Organization [employer] Address 75 [facility] 7t [place] [address] Care Team Providers Care Collision Mechanic Name Role Phone Aurelia Steiner RIKKI Primary Care Provider [phone] Allergies No known active allergies Medications triamcinolone (Kenalog) 0.1 % creamIndicatio ns:Dyschromia Apply topically if needed in the morning and at bedtime (pain and swelling). 30 g 1 07/28/20 24 Active pantoprazole (Protonix) 40 MG EC tablet Take 1 tablet (40 mg) by mouth before breakfast. Do not crush, chew, or split. 30 tablet 2 07/30/20 25 026 Active lisinopril (Prinivil) 20 MG tablet Take 1 tablet (20 mg) by mouth Once per day. 90 tablet 1 07/30/20 25 026 Active hydroCHLOROthi azide 12.5 MG tablet Take 1 tablet (12.5 mg) by mouth Once per day. 90 tablet 07/30/20 25 Active atorvastatin (Lipitor) 20 MG tablet TAKE 1 TABLET BY MOUTH EVERY DAY 90 tablet 1 07/30/20 25 Active atenolol (Tenormin) 25 MG tablet Take 1 tablet (25 mg) by mouth Once per day. 90 tablet 07/30/20 25 Active aspirin 81 MG chewable tabletIndicati ons:Lacunar infarction (CMS/HCC) (HCC) Chew 1 tablet (81 mg) Once per day. 30 tablet 11 07/30/20 25 026 Active aspirin 81 MG chewable tabletIndicati ons:Lacunar infarction (CMS/HCC) (HCC) Chew 1 tablet (81 mg) Once per day. 30 tablet 11 05/22/20 25 025 Discontinued(Re order (will not trigger notification to Pharmacy)) atenolol (Tenormin) 25 MG tablet Take 1 tablet (25 mg) by mouth Once per day. 90 tablet 05/22/20 025 Discontinued(Re order (will not trigger notification to Pharmacy)) hydroCHLOROthi azide 12.5 MG tablet Take 1 tablet (12.5 mg) by mouth Once per day. 90 tablet 05/22/20 25 025 Discontinued(Re order (will not trigger notification to Pharmacy)) lisinopril (Prinivil) 20 MG tablet Take 1 tablet (20 mg) by mouth Once per day. 90 tablet 1 05/22/20 025 Discontinued(Re order (will not trigger notification to Pharmacy)) atorvastatin (Lipitor) 20 MG tablet TAKE 1 TABLET BY MOUTH EVERY DAY 90 tablet 1 06/20/20 025 Discontinued(Re order (will not trigger notification to Pharmacy)) Active Problems Problem Noted Date Diagnosed Date Gastroesophageal reflux dise ase with esophagitis without hemorrhage 07/30/2025 Assessment & Plan (07/30/2025 1:46 PM EST): Moderate dementia without be havioral disturbance, psychotic disturbance, mood disturbance, or anxiety ([facility]) 07/30/2025 Assessment & Plan (07/30/2025 1:46 PM EST): Dysuria 07/30/2025 Assessment & Plan (07/30/2025 1:46 PM EST): Orders: Culture, Urine, Routine; Future Lacunar infarction ([facility]) 05/22/2025 Assessment & Plan (07/30/2025 1:46 PM EST): Orders: aspirin 81 MG chewable tablet; Chew 1 tablet (81 mg) Once per day. Assessment & Plan (05/26/2025 4:47 PM EDT): Orders: aspirin 81 MG chewable tablet; Chew 1 tablet (81 mg) Once per day. Referral to Neurology; Future Lipid Panel, Standard; Future Comprehensive Metabolic Panel; Future CBC auto differential; Future Referral to Physical Therapy; Future Memory impairment 05/22/2025 Assessment & Plan (05/26/2025 4:47 PM EDT): Orders: Referral to Physical Therapy; Future Dark urine 05/22/2025 Assessment & Plan (05/26/2025 4:47 PM EDT): Murmur 10/18/2024 Abnormal Romberg test 10/17/2024 Assessment [...] Dehydration 09/17/2023 Osteoporosis 03/27/2021 Carcinoma of breast (CMS/HCC) 07/22/2015 Aortic valve regurgitation 10/10/2014 Assessment & [...] Encounters Date Type Department Care Team Description 07/30/2025 1:45 PM EST Office Visit [address] [place] [address] Aurelia Steiner NP Gastroesophageal reflux disease with esophagitis without hemorrhage (Primary Dx); Moderate dementia without behavioral disturbance, psychotic disturbance, mood disturbance, or anxiety, unspecified dementia type (CMS/HCC) (HCC); Lacunar infarction (CMS/HCC) (HCC); Dysuria 07/30/2025 Travel 07/27/[address] [address] Aurelia Steiner NP CHARTPREP 07/19/2025 Patient Outreach [address] [address] Aurelia Steiner NP Pre-visit Planning (Pre-visit planning - LVM ) 06/19/2025 [address]ill [address] [place] [address] Aurelia Steiner NP 05/25/2025 Orders Only [address] [address] Aurelia Steiner NP 05/23/2025 11:00 AM EDT Clinical Support [address] [place] [address] Sonal Guadalupe RN Memory impairment 05/23/2025 Travel 05/22/2025 1:45 PM EDT Office [address] [place] [address] Aurelia Steiner NP Lacunar infarction (CMS/HCC) (HCC) (Primary Dx); Memory impairment; Dark urine; Encounter for immunization; Encounter for vaccination; Impairment of balance 05/22/2025 Travel 05/21/2025 Telephone [place] [address] [place] [address] Aurelia Steiner NP chart prep from Last 3 Months Immunizations Immunization Administration Dates Next Due Influenza High-dose Quadriva lent Preservative Free 06/25/2020 Influenza injectable quadriv alent IIV4 with preservative 06/09/2016 Influenza injectable quadriv alent preservative free 08/21/2021 Influenza, High Dose Seasona l, Preservative Free 05/22/2025,08/04/2024,05/16/2018 Influenza, IIV3, injectable 06/01/2014 Influenza, Split (incl. rudy fied surface antigen) 06/14/2013 Pfizer Covid-19 Vaccine 12+ 05/22/2025,0 08/21/2021,11/19/2020,11/01 Pneumococcal Conjugate PCV 13 05/16/2018 Pneumococcal Polysaccharide [...] Orientation Straight 05/22/2025 1: 27 PM EDT Last Filed Vital Signs Vital Sign [...] Mass Index 27.51 07/30/2025 1:29 PM EST Plan of Treatment Upcoming Encounters Date Type Department Care Team (Late st Contact Info) Description 10/09/2025 1:45 PM EST Office Visit [facility] [address] [place] [address] Aurelia Steiner NP [address] [place] [address] Health Maintenance Due Date Last Done Comments CT Colonography 1950 FIT DNA/Cologuard 1950 FIT 1950 FOBT 1950 Sigmoidoscopy 1950 Alcohol/Substance Use Screening 1963 Hepatitis C Screening 1969 RSV Patients and Patients Aged 60 years or older (1 - Risk 50-74 years 1-dose series) 2001 Depression Screening 10/17/2025 10/17/2024, 10/18/19 25 SDOH Screening 10/17/2025 10/17/2024 COVID-19 Vaccine ( season) 2025 05/22/2025, 08/21/2021, 11/19/2020, Additional history exists Mammogram 12/21/2025 12/21/2024, 10/14, 10/23/2021, Additional history exists Tobacco Screening 07/30/2026 07/30/2025 Colonoscopy 07/19/2027 07/19/2024 Colorectal Cancer Screening 07/19/2027 Lipid Panel 05/25/2030 05/25/2025, 01/15, 12/25/2021, Additional history exists DTaP/Tdap/Td Vaccines (3 - Td or Tdap) 02/05/2032 02/04/2022, 05/14/2011 Pneumococcal Vaccine: 50+ Years Completed 05/16/2018, 09/08/2016 Zoster Vaccines Completed 06/12/2021, 03/17, 05/06/2015 Influenza Vaccine Completed 05/22/2025, , 08/21/2021, Additional history exists HIB Vaccines Aged Out [...] patient's age to complete this topic Meningococcal B Vaccine Aged Out No l onger eligible based on patient's age to complete [...] DIPSTICK Routine 07/30/2025 2:04 PM EST Dysuria SLIDE REVIEW Routine 05/25/2025 10:51 AM EDT CBC WITH AUTO DIFFERENTIAL Routine 05/25/2025 10:51 AM EDT Lacunar infarction (CMS/HCC) (HCC) COMPREHENSIVE METABOLIC PANEL Routine 05/25/2025 10:51 AM EDT Lacunar infarction (CMS/HCC) (HCC) LIPID PANEL, STANDARD Routine 05/25/2025 10:51 AM EDT Lacunar infarction (CMS/HCC) (HCC) BI MAMMOGRAM SCREENING TOMOSYNTHESIS BILATERAL Routine 12/21/2024 9:30 AM EDT HM COLONOSCOPY Routine 07/19/2024 from Last 3 Months or Most Recently Relevant to Health Maintenance Results * (ABNORMAL) POCT Urinalysis (07/30/2025 2:04 [...] Urine (Urine, Random) 07/30/2025 2:04 PM EST us Aurelia Steiner NP POINT OF CARE TEST ENTER/EDIT OR DERABLES Final Result * Slide Review (05/25/2025 10:51 AM EDT) Slide Review VERIFIED [facility] 05/25/2025 10:5 1 AM EDT 05/25/2025 10:51 AM EDT us Aurelia Graef HAND CANDY DIPPER LAB BLOOD ORDERABLES Final Resul t [facility] [address] [place], [place] [phone] * (ABNORMAL) CBC auto differential (05/25/2025 10:51 AM EDT) White Blood Count 8.9 4.8 - 10.8 X10*3/uL [facility] Red Blood Count 4.93 4.20 - 5.50 X10*6/uL [facility] Hemoglobin 15.0 12.0 - 16.0 g/dl [facility] Hematocrit 43.8 37.0 - 47.0 % [facility] Mean Corpuscular Volume 88.8 80.0 - 98.0 fL [facility] Mean Corpuscular Hemoglobin 30.4 27.0 - 33.0 pg [facility] Mean Corpuscular HGB Conc 34.2 31.0 - 35.0 g/dl [facility] Red Cell Distribution Width 13.5 11.0 - 16.0 % [facility] Platelet Count 202 160 - 400 X10*3/uL [facility] Mean Platelet Volume 11.0 9.4 - 12.3 fL [facility] Neutrophils Percent Auto 32.8(L) 45 - 73 % [facility] Imm Gran Pct Auto 0.1 0.0 - 0.4 % [facility] Lymphocytes Percent Auto 59.0(H) 20 - 40 % [facility] Monocytes Percent Auto 6.0 2 - 11 % [facility] Eosinophils Percent Auto 1.5 0 - 4 % [facility] Basophils Percent Auto 0.6 0 - 2 % [facility] NRBC Pct Auto 0.0 0.0 - 0.2 /100WBC [facility] Neutrophils Absolute Auto 2.9 2.0 - 8.3 x10*3/uL [facility] Imm Gran Abs Auto 0.01 0.00 - 0.03 X10*3/uL [facility] Lymphocytes Absolute Auto 5.2(H) 1.2 - 4.9 X10*3/uL [facility] Monocytes Absolute Auto 0.5 0.1 - 1.2 X10*3/uL [facility] Eosinophils Absolute Auto 0.1 0.0 - 0.4 X10*3/uL [facility] Basophils Absolute Auto 0.1 0.0 - 0.2 X10*3/uL [facility] NRBC Abs Auto 0.000 0.0 - 0.012 X10*3/uL [facility] Blood Venous blood specimen / Unknown 05/25/2025 10:51 AM EDT 05/25/2025 10:51 AM EDT us Aurelia Steiner HAND CANDY DIPPER LAB BLOOD ORDERABLES Edited Resu lt - Final [facility] [address] [place] [address] [phone] * (ABNORMAL) Lipid Panel, Standard (05/25/2025 10:51 AM EDT) Triglycerides 80 <150 mg/dL [facility] Comment:Desirable Triglyceri de: less than 150 mg/dLBorderline High Triglyceride 150-199 mg/dLHigh Triglyceride: 200-499 mg/dLVery High Triglyceride: greater than or equal to 5OO mg/dL Cholesterol 149 <200 mg/dL [facility] Comment:Desirable Cholestero l: less than 200 mg/dLBorderline High Cholesterol: 200-239 mg/dLHigh Cholesterol: greater than 239 mg/dL LDL Cholesterol Calculated 98 <100 mg/dL [facility] Comment:Desirable LDL: less than 100 mg/dLNear Optimal/Above Optimal LDL: 110- 129 mg/dLBorderline High LDL: 130-159 mg/dLHigh LDL: 160-189 mg/dLVery High LDL: greater than or equal to 190 mg/dL HDL Cholesterol 35(L) >40 mg/dL [facility] Comment:Desirable HDL: great er than 40 mg/dL Note: This HDL assay may give artificially low results in patients with liver disease. Blood Venous blood specimen / Unknown 05/25/2025 10:51 AM EDT 05/25/2025 10:51 AM EDT us Aurelia Steiner HAND CANDY DIPPER LAB BLOOD ORDERABLES Final Resul t [facility] [address] [place] [address] [phone] * (ABNORMAL) Comprehensive Metabolic Panel (05/25/2025 10:51 AM EDT) Sodium 143 135 - 145 mmol/L [facility] Potassium 3.8 3.3 - 5.1 mmol/L [facility] Chloride 106 96 - 108 mmol/L [facility] Carbon Dioxide 32(H) 22 - 29 mmol/L [facility] Anion Gap 9(L) 12 - 20 [facility] Urea Nitrogen (BUN) 18(H) 9 - 16 mg/dL [facility] Creatinine, Serum 0.66 0.5 - 1.4 mg/dL [facility] Estimated Glomerular Filt Rate >60 [facility] Comment:Chronic Kidney Disea se: Estimated GFR < 60 mL/min/1.43x7Vhczfe Kidney Disease: Estimated GFR < 15 mL/min/1.73m2 Glucose 102 60 - 115 mg/dL [facility] Calcium 9.3 8.4 - 10.2 mg/dL [facility] Bilirubin, Total 0.8 0.0 - 1.0 mg/dL [facility] Aspartate Amino Transferase 26 5 - 31 U/L [facility] Alanine Aminotransferase 21 0 - 31 U/L [facility] Total Protein 7.5 6.5 - 8.0 g/dL [facility] Albumin Level 4.3 3.5 - 5.0 g/dL [facility] Alkaline Phosphatase 88 39 - 117 U/L [facility] Blood Venous blood specimen / Unknown 05/25/2025 10:51 AM EDT 05/25/2025 10:51 AM EDT us Aurelia Steiner HAND CANDY DIPPER LAB BLOOD ORDERABLES Final Resul t [facility] [address] [facility] [place] [address] [phone] * BI Mammogram Screening Tomosynthesis Bilateral (12/21/2024 9:30 AM EDT) Anatomical Region Laterality Modality Breast Bilateral Mammography 12/21/2024 9:30 AM EDT Narrative 12/26/2024 5:20 PM EDT [facility] [address] [place] [address] Mammography Report Signed Patient: Monica Suarez MR#: [id number] 3 : 1950 Acct:[id number] Age/Sex: 74 / F ADM Date: 12/21/24 Loc: JOSE Attending Dr: Saul Centeno MD Ordering Physician: Saul Centeno MD Results: 2Beni gn Findings Date of Service: 12/21/24 Follow Up: 1 Year From [facility] ina Mammogram Procedure(s): MM tomosynthesis screening BI Accession Number(s): [id number] cc: Aurelia Steiner HAND CANDY DIPPER; Saul Centeno MD EXAMINATION: MM SCREENING DIGITAL BREAST TOMOSYNTHESIS, BILATERAL CLINICAL INFORMATION: Screening. Asymptomatic. Left breast cancer in 2015 status post lumpectomy. COMPARISON: Mammography: Comparison is made with available priors TECHNIQUE: Digital breast mammography with tomosynthesis is performed in both the craniocaudal and mediolateral oblique views along with computer-aided detection (CAD). FINDINGS: There are scattered areas of fibroglandular density (ACR BI-RADS breast composition Category b). Left post lumpectomy changes are stable. There are no significant masses, abnormal calcifications, or other abnormalities. MM/MM tomosynthesis screening BI IMPRESSION: No mammographic evidence of malignancy. ASSESSMENT: BI-RADS BI-RADS 2 - Benign Findings RECOMMENDATION: Routine annual mammography screening. 1 year F/U This examination should not preclude the clinical evaluation of a suspicious palpable abnormality. This patient's information was entered into a reminder system with a target due date for their next mammogram. Electronically signed by: Miranda Shipman DO 12/26/2024 05:17 PM EDT RP Dictated By: Miranda Shipman DO Signed By: <Electronically signed by Miranda Shipman DO in OV> 12/26/24 1717 DD/ 0930 TD/TT: 12/21/24 0945 Doormaker: Procedure Note Donotuseinterpreter, Image - [facility] [address] [place] [address] Mammography Report Signed Patient: Monica SuarezMR#: [id number] 3 : 1950cct:[id number] Age/Sex: 74 / FADM Date: 12/21/24 Loc: HO.MAMMO Attending Dr: Saul Centeno MD Ordering Physician: Saul Centeno MDResults: 2Beni gn Findings Date of Service: 12/21/24Follow Up: 1 Year From Orig ina Mammogram Procedure(s): MM tomosynthesis screening BI Accession Number(s): [id number] cc: Aurelia Steiner HAND CANDY DIPPER; Saul Centeno MD EXAMINATION: MM SCREENING DIGITAL BREAST TOMOSYNTHESIS, BILATERAL CLINICAL INFORMATION: Screening. Asymptomatic. Left breast cancer in 2015 status post lumpectomy. COMPARISON: Mammography: Comparison is made with available priors TECHNIQUE: Digital breast mammography with tomosynthesis is performed in both the craniocaudal and mediolateral oblique views along with computer-aided detection (CAD). FINDINGS: There are scattered areas of fibroglandular density (ACR BI-RADS breast composition Category b). Left post lumpectomy changes are stable. There are no significant masses, abnormal calcifications, or other abnormalities. MM/MM tomosynthesis screening BI IMPRESSION: No mammographic evidence of malignancy. ASSESSMENT: BI-RADS BI-RADS 2 - Benign Findings RECOMMENDATION: Routine annual mammography screening. 1 year F/U This examination should not preclude the clinical evaluation of a suspicious palpable abnormality. This patient's information was entered into a reminder system with a target due date for their next mammogram. Electronically signed by: Miranda Shipman DO 12/26/2024 05:17 PM EDT Dictated By: Miranda Shipman DO Signed By: <Electronically signed by Miranda Shipman DO in OV> 12/26/24 1717 DD/ 0930 TD/TT: 12/21/24 0945 Doormaker: [facility] External Provider IMG BI PROCEDURES Final Result * Colonoscopy (07/19/2024) Colonoscopy Normal Normal Narrative Ebony Daniels - 07/19/2024 Repeat in 3 years see external hospital admission note Historical Provider HEALTH MAINTENANCE Final Result from Last 3 Months or Most Recently Relevant to Health Maintenance Insurance MEDICARE ADVANTAGE * Guarantor: Erick Monica Account Type Relation to Patient Date of Phone Billing Address Personal/Family Self [address] [phone] Care Teams Collision Mechanic Relationship Specialty Start Date End Date Aurelia Steiner NP [address] [place] [address] PCP - General Family Medicine 09/17/23
--- OUTSIDE RECORDS SUMMARY | 2025-07-30 22:47 | XMS_ITS | Encounter Summary ---
Author Organization [employer] Address 75 [facility] [address] [place] [address] Care Team Providers Care Sba Underwriter Name Role Phone Aurelia Steiner NP Primary Care Provider [phone] Reason for Visit * Reason Onset Date Comments CHARTPREP 07/27/2025 Encounter Details Date Type Department Care Team (Late st Contact Info) Description 07/27/2025 Telephone [facility] [address] [place] [address] Aurelia Steiner NP [address] [place] [address] CHARTPREP Social History Tobacco Use Types Packs/Day Years [...] encounter Miscellaneous Notes * Telephone Encounter - Noel Melvin [place] - 07/27/2025 3:15 PM EST Chart Prep Labs: done Images: done Referrals: appointment pending Vaccines due: RSV Screenings: Alcohol/substance use screening,Hep C screening Overdue care gaps: SBIRT and Oral health screening documented in this encounter Plan of Treatment Upcoming Encounters Date Type Department Care Team (Late st Contact Info) Description 10/09/2025 1:45 PM EST Office Visit [facility] [address] [place] [address] Aurelia Steiner NP [address] [place] [address] documented as of this encounter Visit Diagnoses Not on filedocumented in this encounter Additional Health Concerns Assessment Noted Time PHQ-9 Depression Total Score: 3 10/18/19 25 2:25 PM EST documented as of this encounter Care Teams Sba Underwriter Relationship Specialty Start Date End Date Aurelia Steiner NP [address] [place] [address] PCP - General Family Medicine 09/17/23 documented as of this encounter
--- OUTSIDE RECORDS SUMMARY | 2025-07-30 22:47 | XMS_ITS | Encounter Summary ---
Author Organization [employer] Address 75 [facility] 7t [place] [address] Care Team Providers Care Animal Park Code Enforcement Officer Name Role Phone Aurelia Steiner NP Primary Care Provider [phone] Reason for Visit * Reason Comments Med Refill Encounter Details Date Type Department Care Team ([facility] st Contact Info) Description 07/16/2024 Refill [facility] [address] [place] [address] Aurelia Steiner NP [address] [place] [address] Social History Tobacco Use Types Packs/Day Years [...] Description 10/09/2025 1:45 PM EST Office Visit [facility] [address] [place] [address] Aurelia Steiner NP [address] [place] [address] documented as of this encounter Visit Diagnoses Not on filedocumented in this encounter Additional Health Concerns Assessment Noted Time PHQ-9 Depression Total Score: 0 09/17/19 1:14 PM EST documented as of this encounter Care Teams Animal Park Code Enforcement Officer Relationship Specialty Start Date End Date Aurelia Steiner NP [address] [place] [address] PCP - General Family Medicine 09/17/23 documented as of this encounter
--- OUTSIDE RECORDS SUMMARY | 2025-07-30 22:47 | XMS_ITS | Encounter Summary ---
Author Organization [employer] Address [address] [place] [address] Care Team Providers Care [facility] Name Role Phone Janel Kat MD Primary Care Pro vider Aurelia Steiner NP Primary Care Provider [phone] Encounter Details Date Type Department Care Team (Late st Contact Info) Description 07/16/2023 Orders Only [facility] [address] [place], [place] [id number] Myah Millan LPN Social History Tobacco Use [...] Description 10/09/2025 1:45 PM EST Office Visit [facility] [address] [place] [address] Aurelia Steiner NP [address] [place] [address] documented as of this encounter Visit Diagnoses Not on filedocumented in this encounter Care Teams Cognos Relationship Specialty Start Date End Date Janel Kat MD [address] [place] [address] PCP - General Internal Medicine 02/17/23 09/16/23 Aurelia Steiner NP [address] [place] [id number] PCP - General Family Medicine 09/17/23 documented as of this encounter
== END 2025-07-30 18:40 | disposition home or self-care (01) ==
LOC: HO.LNP 18:39
PROVIDERS: Visit Provider Nurse Practitioner Family
DX: R30.0 Dysuria (principal)
CPT/HCPCS: 87086